=== PATIENT | male | born 1935 | race Caucasian/White ===

== ENCOUNTER 2021-05-14 10:26 | Outpatient (REF) | payer OTHER, SELFPAY ==
--- NOTE | ~2021-05-14 | XR_ITS ---
EXAMINATION: XR KNEE, RIGHT CLINICAL INFORMATION: Sprain COMPARISON: None TECHNIQUE: Three views of the right knee. FINDINGS: There is no evidence acute fracture or dislocation of the right knee. No right knee effusion is appreciated. There is degenerative marginal spurring seen about the undersurface of the patella. There is a 7 mm calcific density which is circumscribed seen overlying the patellofemoral joint and may represent a loose body. No definite donor site is appreciated. There is chondrocalcinosis present. Prominent vascular calcifications are seen. Joint spaces are maintained. XR/XR knee RT 3V IMPRESSION: Patellofemoral degenerative change. Chondrocalcinosis. Question loose body anterior aspect of the knee seen on lateral view overlying the patellofemoral joint.
== END 2021-05-14 10:27 | disposition home or self-care (01) ==
LOC: HO.HMGCX 10:26
PROVIDERS: PCP Internal Medicine; Visit Provider Internal Medicine
DX: Z13.89 Encounter for screening for other disorder (principal)
CPT/HCPCS: 73562

== ENCOUNTER 2024-11-17 12:27 | Outpatient (AMB) | payer OTHER, SELFPAY ==
--- OUTSIDE RECORDS SUMMARY | 2024-11-17 12:51 | XMS_ITS | Encounter Summary ---
Author Organization [facility] Address [address] [place] [address] Care Team Providers Care Liquid Waste Treatment Plant Operator Name Role Phone Sharmila Hanson MD Primary Care Provider [phone] Reason for Visit * Reason Onset Date Comments VNA 11/07/2024 Encounter Details Date Type Department Care Team (Late st Contact Info) Description 11/07/2024 Telephone Adult Medicine [facility] [address] [place] [phone] Sharmila Hanson MD [address], [place] [phone] VNA Social History Tobacco Use Types Packs/Day Years Used Date Smoking Tobacco: Never Smokeless Tobacco: Never Alcohol Use Standard Drinks/Week Comments Not Currently 0 (1 standard drink = 0.6 oz pur e alcohol) Interpersonal Safety Answer Date Record ed Physical Abuse 10/11/2024 Verbal Abuse 10/11/2024 Sex and Gender Information Value Date Recorded Sex Assigned at Male 09/27/2024 6:59 PM EST Legal Sex Male 10:11 AM EST Gender Identity Male 09/27/2024 6:59 PM EST Sexual Orientation Straight 09/27/2024 6: 59 PM EST documented as of this encounter Functional Status * Are you deaf or do you have serious difficulty hearing? Answer Date of Assessment Author No 09/10/2024 12:34 PM Dorene Tobin RN * Are you blind or do you have serious difficulty seeing, even when wearing glasses? Answer Date of Assessment Author No 09/10/2024 12:34 PM EST Dorene Nevarez RN * Do you have serious difficulty walking or climbing stairs? Answer Date of Assessment Author No 09/10/2024 12:34 PM EST Dorene Nevarez RN * Do you have serious difficulty dressing or bathing? Answer Date of Assessment Author No 09/10/2024 12:34 PM Dorene Tobin RN * Because of a physical, mental, or emotional condition, do you have serious difficulty doing errandsalone such as visiting the doctor? Answer Date of Assessment Author No 09/10/2024 12:34 PM Dorene Tobin RN documented as of this encounter Mental Status * Because of a physical, mental, or emotional condition, do you have serious difficulty concentrating, remembering, or making decisions? (5 years old or older) Answer Entry Date Author No 09/10/2024 12:34 PM Dorene Tobin RN documented in this encounter Progress Notes * Heather Lara RN - 11/08/2024 1:38 PM EST Called and spoke to trudi Pugh's daughter. A hospital follow up appointment was made for him to be seen in the office on 11/14/24 at 1:[address] Hanson and she is in agreement with this plan. Faxed request for medical records to [facility] at . * Sharmila Hanson MD - 11/07/2024 4:31 PM EST Ok for VO, needs to be seen for signed orders; please schedule hospital FU; 1 or 1:30 pm on 11/09 is ok * Ian Saini LPN - 11/07/2024 3:16 PM EST Chaitanya STERN requesting VO for nursing PT and OT Please review and advise Please send response to nurse triage marnie Carlos Tj OV 09/26/24 Please book a hospital follow up appointment * Ian Saini LPN - 11/07/2024 3:15 PM EST VNA CALL Which VNA office is calling? Chaitanya STERN, Full name of caller: Cornelia The caller, nurse Is the caller at the patients home?: no Reason for call: starting services for today 11/07/2024. Two times a week for three weeks and then one time a week up to six weeks. Does caller need an urgent call back? no Was CONTACT Telephone # obtained above?: no Fax #: documented in this encounter Plan of Treatment Upcoming Encounters Date Type Department Care Team (Late st Contact Info) Description 01/01/2025 1:00 PM EDT Office Visit Adult Medicine [facility] [address], [place] [phone] Sharmila Hanson MD [address] [place] [address] 02/23/2025 9:00 AM EDT [facility] [address] [phone] 02/23/2025 10:30 AM EDT Office Visit [address] [place] [address] [phone] Irais Agarwal MD [address] [phone] documented as of this encounter Visit Diagnoses Not on filedocumented in this encounter Additional Health Concerns 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
--- OUTSIDE RECORDS SUMMARY | 2024-11-17 12:51 | XMS_ITS | Encounter Summary ---
Author Organization [facility] Address [address] [place] [address] Care Team Providers Care Account Executive Key Accounts Name Role Phone Sharmila Hanson MD Primary Care Provider [phone] Encounter Details Date Type Department Care Team (Late st Contact Info) Description 10/17/2024 Lab Requisition [facility] - Main Lab [address] [place] [address] Roxana Murray MD [address] [phone] Urinary tract infection, site not specified Social History Tobacco Use Types Packs/Day Years [...] 09/10/2024 12:34 PM Dorene Tobin RN * Do you have serious difficulty walking or climbing stairs? Answer Date of Assessment Author No 09/10/2024 12:34 PM Dorene Tobin RN * Do you have serious difficulty [...] Dorene Tobin RN documented in this encounter Plan of Treatment Upcoming Encounters Date Type Department Care Team (Late st Contact Info) Description 01/01/2025 1:00 PM EDT Office Visit Adult Medicine [address] [phone] Sharmila Hanson MD [address] [place] [phone] 02/23/2025 9:00 AM EDT Ancillary Procedure [address] [phone] 02/23/2025 10:30 AM EDT Office Visit [address] [phone] Irais Agarwal MD [address] [phone] documented as of this encounter Procedures Procedure Name Priority Date/Time Associated Diagnosis Comments COMPLETE BLOOD COUNT Routine 10/17/2024 5:27 AM EST Urinary tract infection, site not specified COMPREHENSIVE METABOLIC PANEL Routine 10/17/2024 5:27 AM EST Urinary tract infection, site not specified documented in this encounter Results * (ABNORMAL) Comprehensive metabolic panel (10/17/2024 5:27 AM EST) Sodium 132(L) 133 - 145 mmol/L LAB CHEMISTRY METHOD 10/17/2024 9:09 AM [facility] Potassium 4.1 3.5 - 5.5 mmol/L LAB CHEMISTRY METHOD 10/17/2024 9:09 AM [facility] Chloride 101 96 - 110 mmol/L LAB CHEMISTRY METHOD 10/17/2024 9:09 AM [facility] CO2 23 21 - 32 mmol/L LAB CHEMISTRY METHOD 10/17/2024 9:09 AM [facility] Anion Gap 8 3 - 11 LAB CHEMISTRY METHOD 10/17/2024 9:09 AM [facility] Glucose 104(H) 70 - 100 mg/dL LAB CHEMISTRY METHOD 10/17/2024 9:09 AM [facility] BUN 12 5 - 25 mg/dL LAB CHEMISTRY METHOD 10/17/2024 9:09 AM [facility] Comment:Results verified by repeat testing Creatinine 0.87 0.70 - 1.30 mg/dL LAB CHEMISTRY METHOD 10/17/2024 9:09 AM [facility] eGFR 84 >=60 mL/min/1. 73m2 LAB CHEMISTRY METHOD 10/17/2024 9:09 AM [facility] Comment:Calculation based on the??Chronic Kidney Disease Epidemiology Collaboration (CKD-EPI) equation refit??without adjustment for race. BUN/Creatinine Ratio 13.8 LAB CHEMISTRY METHOD 10/17/2024 9:09 AM [facility] Calcium 9.0 8.5 - 10.5 mg/dL LAB CHEMISTRY METHOD 10/17/2024 9:09 AM [facility] AST (SGOT) 15 10 - 42 unit/L LAB CHEMISTRY METHOD 10/17/2024 9:09 AM [facility] ALT (SGPT) 13 10 - 60 unit/L LAB CHEMISTRY METHOD 10/17/2024 9:09 AM [facility] Alkaline Phosphatase 156(H) 42 - 121 unit/L LAB CHEMISTRY METHOD 10/17/2024 9:09 AM [facility] Total Protein 5.8(L) 6.0 - 8.0 g/dL LAB CHEMISTRY METHOD 10/17/2024 9:09 AM [facility] Albumin 2.7(L) 3.2 - 5.0 g/dL LAB CHEMISTRY METHOD 10/17/2024 9:09 AM [facility] Total Bilirubin 0.4 0.0 - 1.4 mg/dL LAB CHEMISTRY METHOD 10/17/2024 9:09 AM [facility] Blood Venous blood specimen / Unknown Venipuncture / Unknown 10/17/2024 5:27 AM EST 10/17/2024 8:08 AM EST us Roxana Murray MD LAB BLOOD ORDERABLES Fin al Result [facility] [address] [place] [address], * (ABNORMAL) Complete blood count (10/17/2024 5:27 AM EST) WBC 7.5 4.8 - 10.8 K/mcL LAB HEMETOLOGY METHOD 10/17/2024 8:36 AM [facility] RBC 2.40(L) 4.50 - 5.50 M/mcL LAB HEMETOLOGY METHOD 10/17/2024 8:36 AM [facility] Hemoglobin 7.5(L) 13.5 - 17.5 g/dL LAB HEMETOLOGY METHOD 10/17/2024 8:36 AM [facility] Hematocrit 22.9(L) 42.0 - 54.0 % LAB HEMETOLOGY METHOD 10/17/2024 8:36 AM [facility] MCV 95.4 79.0 - 98.0 FL LAB HEMETOLOGY METHOD 10/17/2024 8:36 AM [facility] MCH 31.3 27.0 - 32.0 pcg LAB HEMETOLOGY METHOD 10/17/2024 8:36 AM [facility] MCHC 32.8 32.0 - 37.0 g/dL LAB HEMETOLOGY METHOD 10/17/2024 8:36 AM [facility] RDW 15.3(H) 11.0 - 15.0 % LAB HEMETOLOGY METHOD 10/17/2024 8:36 AM [facility] Platelets 337 130 - 400 K/mcL LAB HEMETOLOGY METHOD 10/17/2024 8:36 AM [facility] MPV 8.6 7.0 - 11.0 FL LAB HEMETOLOGY METHOD 10/17/2024 8:36 AM [facility] NRBC 0.0 <1.0 % LAB HEMETOLOGY METHOD 10/17/2024 8:36 AM [facility] NRBC Absolute 0.00 <0.10 K/mcL LAB HEMETOLOGY METHOD 10/17/2024 8:36 AM [facility] Blood Venous blood specimen / Unknown Venipuncture / Unknown 10/17/2024 5:27 AM EST 10/17/2024 8:08 AM EST Roxana Murray MD LAB BLOOD ORDERABLES Fin al Result [facility] [address] [place] [address], documented in this encounter Visit Diagnoses Diagnosis Urinary tract infection, site not specified documented in this encounter 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
--- OUTSIDE RECORDS SUMMARY | 2024-11-17 12:51 | XMS_ITS | Data Portability ---
Author Organization [facility] [employer], [facility] Address [address] [place] [address] [place] [address] Care Team Providers Care Shove Up Name Role Phone BELEM ONEILL Referring Provider Unavailable BELEM ONEILL Primary Care Provider Assessment Encounter Date Assessment Date Assessment LastModified by Organization Details LastModified Time 02/10/2022 02/10/2022 IMPRESSION: Epilepsy; gait disorder He remains seizure-free on a standard dose of Lamictal 200 mg twice a day. The FDA has put out a new warning in July 2021, based on in vitro data, that states in part that clinicians should avoid the use of Lamictal in people who have cardiac conduction disorders (e.g., second- or third-degree heart block), ventricular arrhythmias, or cardiac disease or abnormality(e.g., myocardial ischemia, heart failure, structural heart disease, Brugada syndrome or other sodium channelopathies). Concomitant use of other sodium channel blockers may increase the risk of proarrhythmia. https://www.ilae. org/files/ilaeGui deline/ILAE_AES_L amotrigine_adviso ry_final_EO_CLEAN _[email or web address] .pdf He has no known heart disease, and just a slight murmur per February 10, 2022 patient report, so this is not an issue for this patient. I again encouraged him to increase frequency of home exercises for balance learned from physical therapy. 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 Previous discussions: He remains, since May 2015, completely off Dilantin. To review the pathway of evaluation leading to this plan: Dilantin may cause polyneuropathy and abnormal gait after long use. He has imbalance with tandem gait, but no sensory signs on light touch or vibrational testing. 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 Dilantin also has other side effects on mental status as the patient ages. In general, I think that cross titration to a medication with less long-term side effects would be in his benefit. We discussed this and he agreed. We will start Lamictal. If he tolerates this, we will then taper Dilantin. He is now in good shape with home exercises to keep his balance is good as it can be and with an attitude that he needs his cane. I encouraged him in this direction. 2019: GABBY Earle Rodrigues February 10, 2022 CONTINUE lamotrigine 200 mg every 12 hours. CONTINUE home exercises for balance learned from physical therapy. CONTINUE: To use your walker outside and your cane inside. Please use the cane at all times when you are inside, unless you use the walker. Please keep one or the other by your bedside so you can use it if/when you wake up to go to the bathroom. This is because of the data that says that falls are at their highest risk at waking in the middle of the night and walking. CONTINUE home exercises for balance learned from physical therapy. You may have a half a glass of wine on special occasions. As you do not generally drink any alcohol, more than this may be a risk for you, either to make you tipsy and more likely to fall, or possibly to trigger a seizure. You have been a little forgetful of our discussions on important topics such as having a cane or walker at your bedside. You are not noticing any forgetfulness or problems with taking medications. If you should notice a problem with taking your medications or if your notices such a problem, please contact me or primary care so we can address this. Followup in 10 months, or sooner with suspicion for seizure, worse problems walking or other neurologic concerns. Benedicto Branch MD, PhD [facility] mrossen Not available 02/10/2022 14:52:08 01/04/2023 01/04/2023 IMPRESSION: --Epilepsy; gait disorder --Newly appreciated right-sided carpal tunnel syndrome explaining tingling intermittently in right-sided fingers, With Tinel maneuver reproducing this tingling. He remains seizure-free on a standard dose of Lamictal 200 mg twice a day.We will make no changes with respect to the gait disorder. Right-sided carpal tunnel syndrome is diagnosed on the basis of the thumb weakness and the Tinel's sign. I offer prescription for hand splint. The symptoms do not bother him enough to move in that direction. 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 This is asymptomatic on the left. He has diabetes and this might be the trigger for this situation. Hypothyroidism may also predispose to focal neuropathy. I defer to primary care for correcting thyroid function at the next opportunity for sending labs. For his imbalance I have previously encouraged him to increase frequency of home exercises for balance learned from physical therapy. 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 This was done as of February 10, 2022 follow-up report. PLAN Earle Rodirgues January 042022 CONTINUE lamotrigine 200 mg every 12 hours. CONTINUE home exercises for balance learned from physical therapy. CONTINUE: To use your walker outside and your cane inside. Please use the cane at all times when you are inside, unless you use the walker. Please keep one or the other by your bedside so you can use it if/when you wake up to go to the bathroom. This is because of the data that says that falls are at their highest risk at waking in the middle of the night and walking. CONTINUE home exercises for balance learned from physical therapy. You may have a half a glass of wine on special occasions. As you do not generally drink any alcohol, more than this may be a risk for you, either to make you tipsy and more likely to fall, or possibly to trigger a seizure. You have been a little forgetful of our discussions on important topics such as having a cane or walker at your bedside. You are not noticing any forgetfulness or problems with taking medications. If you should notice a problem with taking your medications or if your notices such a problem, please contact me or primary care so we can address this. Followup in 10 months, or sooner with suspicion for seizure, worse problems walking or other neurologic concerns. Benedicto Branch MD, PhD [facility] Not available 01/04/2023 16:00:17 07/19/2023 07/19/2023 IMPRESSION: --Epilepsy; gait disorder --January 04, 2023 Newly appreciated right-sided carpal tunnel syndrome explaining tingling intermittently in right-sided fingers, With Tinel maneuver reproducing this tingling. --July 192022 No seizures on lamotrigine, without side effects; new atrial fibrillation on Eliquis, with two recent falls. He remains seizure-free on a standard dose of Lamictal 200 mg twice a day.Neuro make no changes With respect to the gait disorder, I encouraged him to work with the PT and OT healthcare providers coming to his home to minimize any chance of future falls. He repeatedly returns to his feeling of anxiety and needing to do things right away and I wonder if he has a little compulsiveness. He thinks may be so. I offered a very small dose of a mild SSRI, escitalopram. He declines and thinks he can be mindful and slow down by himself. January 04, 2023 Right-sided carpal tunnel syndrome is diagnosed on the basis of the thumb weakness and the Tinel's sign. I offer prescription for hand splint. The symptoms do not bother him enough to move in that direction. 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 This is asymptomatic on the left. He has diabetes and this might be the trigger for this situation. Hypothyroidism may also predispose to focal neuropathy. I defer to primary care for correcting thyroid function at the next opportunity for sending labs. For his imbalance I have previously encouraged him to increase frequency of home exercises for balance learned from physical therapy. 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 This was done as of February 10, 2022 follow-up report. PLAN Earle Rodrigues July 192022 CONTINUE lamotrigine 200 mg every 12 hours. work with PT AND OT on balance Plan see if OT has any suggestions about changing the situation around your bathtub to minimize the chance of fall there. CONTINUE: To use your walker outside and your cane inside. Please use the cane at all times when you are inside, unless you use the walker. Please keep one or the other by your bedside so you can use it if/when you wake up to go to the bathroom. This is because of the data that says that falls are at their highest risk at waking in the middle of the night and walking. You may have a half a glass of wine on special occasions. As you do not generally drink any alcohol, more than this may be a risk for you, either to make you tipsy and more likely to fall, or possibly to trigger a seizure. You have been a little forgetful of our discussions on important topics such as having a cane or walker at your bedside. You are not noticing any forgetfulness or problems with taking medications. If you should notice a problem with taking your medications or if your notices such a problem, please contact me or primary care so we can address this. Followup in 6 months, or sooner with suspicion for seizure, worse problems walking or other neurologic concerns. Benedicto Branch MD, PhD [facility] Not available 07/19/2023 14:45:40 01/18/2024 01/18/2024 IMPRESSION: --Epilepsy; gait disorder --January 04, 2023 Newly appreciated right-sided carpal tunnel syndrome explaining tingling intermittently in right-sided fingers, With Tinel maneuver reproducing this tingling. --July 192022 No seizures on lamotrigine, without side effects; new atrial fibrillation on Eliquis, with two recent falls. He remains seizure-free on a standard dose of Lamictal 200 mg twice a day. Again, I will make no changes With respect to the gait disorder, I again encouraged him to work with the PT and OT healthcare providers coming to his home to minimize any chance of future falls. July 19, 2024 He repeatedly returns to his feeling of anxiety and needing to do things right away and I wonder if he has a little compulsiveness. He thinks may be so. I offered a very small dose of a mild SSRI, escitalopram. He declines and thinks he can be mindful and slow down by himself. January 04, 2023 Right-sided carpal tunnel syndrome is diagnosed on the basis of the thumb weakness and the Tinel's sign. I offer prescription for hand splint. The symptoms do not bother him enough to move in that direction. 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 This is asymptomatic on the left. He has diabetes and this might be the trigger for this situation. Hypothyroidism may also predispose to focal neuropathy. I defer to primary care for correcting thyroid function at the next opportunity for sending labs. For his imbalance I have previously encouraged him to increase frequency of home exercises for balance learned from physical therapy. 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 This was done as of February 10, 2022 follow-up report. PLAN Earle Rodrigues 2023 CONTINUE lamotrigine 200 mg every 12 hours. work with PT AND OT on balance Plan see if OT has any suggestions about changing the situation around your bathtub to minimize the chance of fall there. CONTINUE: To use your walker outside and your cane inside. Please use the cane at all times when you are inside, unless you use the walker. Please keep one or the other by your bedside so you can use it if/when you wake up to go to the bathroom. This is because of the data that says that falls are at their highest risk at waking in the middle of the night and walking. You may have a half a glass of wine on special occasions. As you do not generally drink any alcohol, more than this may be a risk for you, either to make you tipsy and more likely to fall, or possibly to trigger a seizure. You have been a little forgetful of our discussions on important topics such as having a cane or walker at your bedside. You are not noticing any forgetfulness or problems with taking medications. If you should notice a problem with taking your medications or if your notices such a problem, please contact me or primary care so we can address this. Followup in 6 months, or sooner with suspicion for seizure, worse problems walking or other neurologic concerns. Benedicto Branch MD, PhD [facility] Not available 01/18/2024 12:41:25 07/20/2024 07/20/2024 IMPRESSION: --Epilepsy; gait disorder --January 04, 2023 Newly appreciated right-sided carpal tunnel syndrome explaining tingling intermittently in right-sided fingers, With Tinel maneuver reproducing this tingling. --July 192022 No seizures on lamotrigine, without side effects; new atrial fibrillation on Eliquis, with two recent falls. --January 18, 2024 seizure-free on lamotrigine, one fall, without walker or cane --July 20, 2024 seizure-free on lamotrigine; intermittent falls, intermittent hospital admissions for fall and/or UTI. >>>>>>>>>>>>January 18, 2024 He remains seizure-free on a standard dose of Lamictal 200 mg twice a day. Again, I will make no changes. With respect to the gait disorder, I again encouraged him to work with the PT and OT healthcare providers to minimize any chance of future falls. >>>>>>>>>>>>January 18, 2024 He remains seizure-free on a standard dose of Lamictal 200 mg twice a day. Again, I will make no changes. With respect to the gait disorder, I again encouraged him to work with the PT and OT healthcare providers to minimize any chance of future falls. July 19, 2023 He repeatedly returns to his feeling of anxiety and needing to do things right away and I wonder if he has a little compulsiveness. He thinks may be so. I offered a very small dose of a mild SSRI, escitalopram. He declines and thinks he can be mindful and slow down by himself. January 04, 2023 Right-sided carpal tunnel syndrome is diagnosed on the basis of the thumb weakness and the Tinel's sign. I offer prescription for hand splint. The symptoms do not bother him enough to move in that direction. 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 This is asymptomatic on the left. He has diabetes and this might be the trigger for this situation. Hypothyroidism may also predispose to focal neuropathy. I defer to primary care for correcting thyroid function at the next opportunity for sending labs. For his imbalance I have previously encouraged him to increase frequency of home exercises for balance learned from physical therapy. 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 This was done as of February 10, 2022 follow-up report. PLAN Earle Rodrigues July 20, 2024 CONTINUE lamotrigine 200 mg every 12 hours. work with PT AND OT on balance Plan see if OT has any suggestions about changing the situation around your bathtub to minimize the chance of fall there. CONTINUE: To use your walker outside and your cane inside. Please use the cane at all times when you are inside, unless you use the walker. Please keep one or the other by your bedside so you can use it if/when you wake up to go to the bathroom. This is because of the data that says that falls are at their highest risk at waking in the middle of the night and walking. You may have a half a glass of wine on special occasions. As you do not generally drink any alcohol, more than this may be a risk for you, either to make you tipsy and more likely to fall, or possibly to trigger a seizure. You have been a little forgetful of our discussions on important topics such as having a cane or walker at your bedside. You are not noticing any forgetfulness or problems with taking medications. If you should notice a problem with taking your medications or if your notices such a problem, please contact me or primary care so we can address this. Followup in 6 months, or sooner with suspicion for seizure, worse problems walking or other neurologic concerns. PLEASE BRING YOUR Benedicto Branch MD, PhD [facility] Not available 07/20/2024 13:11:43 Plan of Treatment Reminders Order Date Submit Date Provider Last Modified By Organization Details Last Modified Time Details Appointments FOLLOW UP EXT 2024 12:30P Tani Branch MD PhD Not available Not available Not available Lab None recorded. Referral None recorded. Procedures None recorded. Surgeries None recorded. Imaging None recorded. Medication Orders lamotrigi ne [address] [facility], [address] [place] [address], [id number], 07/20/2024 12:52:04 lamotrigi ne 200 [address] [facility], [address] [place] [address], [id number], 01/18/2024 12:29:27 lamotrigi ne 200 mg tablet [address] [facility], [address] [place] [address], [id number], 07/19/2023 14:26:12 lamotrigi ne 200 mg tablet 2022 023 [facility], [address] [place] [address], [id number], 01/04/2023 14:48:51 lamotrigi ne 200 mg tablet 2021 022 [facility], [address] [place] [address], [id number], 02/10/2022 14:53:40 Patient TargetsNo targets recorded. Patient Instructions Encounter Date Encounter Id Patient Instructions Last Modified By Organization Details Last Modified Time 02/10/2022 [id number] PREVIOUS DISCUSSIONS January 2020: He wonders whether glaucoma affects his walking. He is still able to see the visual big picture in his peripheral vision so I doubt it. He wonders if/when he will be able to stop using walker and cane. That would depend on my neurological exam. I suspect he will always need at least a cane. I I recommend he use both of them, just as he is doing, I told him, in the foreseeable future, at least until I can do exam and he can be reevaluated by a physical therapist. He understands. 2018 He had some questions on the differences between lamotrigine and Dilantin and we discussed this. 2014 He no longer minds the taste of the Lamictal pills, since May 2015 so he is not using applesauce. 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 (not doing it anymore 02/2022) mrossen Not available 02/10/2022 14:36:29 01/04/2023 [id number] mrossen Not available 01/04/2023 16:00:49 PREVIOUS MEDICATION He remains, since May 2015, completely off Dilantin. To review the pathway of evaluation leading to this plan: Dilantin may cause polyneuropathy and abnormal gait after long use. He has imbalance with tandem gait, but no sensory signs on light touch or vibrational testing. 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 Dilantin also has other side effects on mental status as the patient ages. In general, I think that cross titration to a medication with less long-term side effects would be in his benefit. We discussed this and he agreed. We will start Lamictal. If he tolerates this, we will then taper Dilantin. PREVIOUS DISCUSSIONS 02/10/2022 The FDA has put out a new warning in July 2021, based on in vitro data, that states in part that clinicians should avoid the use of Lamictal in people who have cardiac conduction disorders (e.g., second- or third-degree heart block), ventricular arrhythmias, or cardiac disease or abnormality(e.g., myocardial ischemia, heart failure, structural heart disease, Brugada syndrome or other sodium channelopathies). Concomitant use of other sodium channel blockers may increase the risk of proarrhythmia. https://www.ilae.o rg/files/ilaeGuide line/ILAE_AES_Lamo trigine_advisory_f inal_EO_CLEAN_ASG2 -[email or web address].pdf He has no known heart disease, and just a slight murmur per February 10, 2022 patient report, so this is not an issue for this patient. January 2020: He wonders whether glaucoma affects his walking. He is still able to see the visual big picture in his peripheral vision so I doubt it. He wonders if/when he will be able to stop using walker and cane. That would depend on my neurological exam. I suspect he will always need at least a cane. I I recommend he use both of them, just as he is doing, I told him, in the foreseeable future, at least until I can do exam and he can be reevaluated by a physical therapist. He understands. 2018 He had some questions on the differences between lamotrigine and Dilantin and we discussed this. 2014 He no longer minds the taste of the Lamictal pills, since May 2015 so he is not using applesauce. 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 (not doing it anymore 02/2022) Three chronic conditions, with exacerbation [email or web address] Not available 01/04/2023 16:01:10 07/19/2023 [id number] mrossen Not available 07/19/2023 14:13:03 PREVIOUS MEDICATION He remains, since May 2015, completely off Dilantin. To review the pathway of evaluation leading to this plan: Dilantin may cause polyneuropathy and abnormal gait after long use. He has imbalance with tandem gait, but no sensory signs on light touch or vibrational testing. 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 Dilantin also has other side effects on mental status as the patient ages. In general, I think that cross titration to a medication with less long-term side effects would be in his benefit. We discussed this and he agreed. We will start Lamictal. If he tolerates this, we will then taper Dilantin. PREVIOUS DISCUSSIONS 02/10/2022 The FDA has put out a new warning in July 2021, based on in vitro data, that states in part that clinicians should avoid the use of Lamictal in people who have cardiac conduction disorders (e.g., second- or third-degree heart block), ventricular arrhythmias, or cardiac disease or abnormality(e.g., myocardial ischemia, heart failure, structural heart disease, Brugada syndrome or other sodium channelopathies). Concomitant use of other sodium channel blockers may increase the risk of proarrhythmia. https://www.ilae.o rg/files/ilaeGuide line/ILAE_AES_Lamo trigine_advisory_f inal_EO_CLEAN_ASG2 -[email or web address].pdf He has no known heart disease, and just a slight murmur per February 10, 2022 patient report, so this is not an issue for this patient. January 2020: He wonders whether glaucoma affects his walking. He is still able to see the visual big picture in his peripheral vision so I doubt it. He wonders if/when he will be able to stop using walker and cane. That would depend on my neurological exam. I suspect he will always need at least a cane. I I recommend he use both of them, just as he is doing, I told him, in the foreseeable future, at least until I can do exam and he can be reevaluated by a physical therapist. He understands. 2018 He had some questions on the differences between lamotrigine and Dilantin and we discussed this. 2014 He no longer minds the taste of the Lamictal pills, since May 2015 so he is not using applesauce. 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 (not doing it anymore 02/2022) Discussion across issues of diagnoses and management and same day associated chart review and management greater than 50% greater than 40 minutes [email or web address] Not available 07/19/2023 14:46:05 01/18/2024 [id number] mrossen Not available 01/18/2024 12:23:05 PREVIOUS MEDICATION He remains, since May 2015, completely off Dilantin. To review the pathway of evaluation leading to this plan: Dilantin may cause polyneuropathy and abnormal gait after long use. He has imbalance with tandem gait, but no sensory signs on light touch or vibrational testing. 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 Dilantin also has other side effects on mental status as the patient ages. In general, I think that cross titration to a medication with less long-term side effects would be in his benefit. We discussed this and he agreed. We will start Lamictal. If he tolerates this, we will then taper Dilantin. PREVIOUS DISCUSSIONS 02/10/2022 The FDA has put out a new warning in July 2021, based on in vitro data, that states in part that clinicians should avoid the use of Lamictal in people who have cardiac conduction disorders (e.g., second- or third-degree heart block), ventricular arrhythmias, or cardiac disease or abnormality(e.g., myocardial ischemia, heart failure, structural heart disease, Brugada syndrome or other sodium channelopathies). Concomitant use of other sodium channel blockers may increase the risk of proarrhythmia. https://www.ilae.o rg/files/ilaeGuide line/ILAE_AES_Lamo trigine_advisory_f inal_EO_CLEAN_ASG2 -[email or web address].pdf He has no known heart disease, and just a slight murmur per February 10, 2022 patient report, so this is not an issue for this patient. January 2020: He wonders whether glaucoma affects his walking. He is still able to see the visual big picture in his peripheral vision so I doubt it. He wonders if/when he will be able to stop using walker and cane. That would depend on my neurological exam. I suspect he will always need at least a cane. I I recommend he use both of them, just as he is doing, I told him, in the foreseeable future, at least until I can do exam and he can be reevaluated by a physical therapist. He understands. 2018 He had some questions on the differences between lamotrigine and Dilantin and we discussed this. 2014 He no longer minds the taste of the Lamictal pills, since May 2015 so he is not using applesauce. 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 (not doing it anymore 02/2022) 2 chronic conditions; prescription medication management Discussion across issues of diagnoses and management and same day associated chart review and management greater than 50% greater than 30 minutes [email or web address] Not available 01/18/2024 12:41:53 07/20/2024 [id number] [email or web address] Not available 07/20/2024 12:48:10 PREVIOUS MEDICATION He remains, since May 2015, completely off Dilantin. To review the pathway of evaluation leading to this plan: Dilantin may cause polyneuropathy and abnormal gait after long use. He has imbalance with tandem gait, but no sensory signs on light touch or vibrational testing. 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 Dilantin also has other side effects on mental status as the patient ages. In general, I think that cross titration to a medication with less long-term side effects would be in his benefit. We discussed this and he agreed. We will start Lamictal. If he tolerates this, we will then taper Dilantin. PREVIOUS DISCUSSIONS 02/10/2022 The FDA has put out a new warning in July 2021, based on in vitro data, that states in part that clinicians should avoid the use of Lamictal in people who have cardiac conduction disorders (e.g., second- or third-degree heart block), ventricular arrhythmias, or cardiac disease or abnormality(e.g., myocardial ischemia, heart failure, structural heart disease, Brugada syndrome or other sodium channelopathies). Concomitant use of other sodium channel blockers may increase the risk of proarrhythmia. https://www.ilae.o rg/files/ilaeGuide line/ILAE_AES_Lamo trigine_advisory_f inal_EO_CLEAN_ASG2 -[email or web address].pdf He has no known heart disease, and just a slight murmur per February 10, 2022 patient report, so this is not an issue for this patient. January 2020: He wonders whether glaucoma affects his walking. He is still able to see the visual big picture in his peripheral vision so I doubt it. He wonders if/when he will be able to stop using walker and cane. That would depend on my neurological exam. I suspect he will always need at least a cane. I I recommend he use both of them, just as he is doing, I told him, in the foreseeable future, at least until I can do exam and he can be reevaluated by a physical therapist. He understands. 2018 He had some questions on the differences between lamotrigine and Dilantin and we discussed this. 2014 He no longer minds the taste of the Lamictal pills, since May 2015 so he is not using applesauce. 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 (not doing it anymore 02/2022) 2 chronic conditions; prescription medication management Discussion across issues of diagnoses and management and same day associated chart review and management greater than 50% greater than 30 minutes [email or web address] Not available 07/20/2024 12:48:10 Reason for Referral None Reported. Procedures Surgical History Date Name Laterality Status Provider Name and Address Organization Details Recorded Time 07/20/2024 DATA REVIEW completed Benedicto Branch MD [address] [place] [address] [place], [phone], Formerly [facility] 07/20/2024 12:48:09 01/18/2024 DATA REVIEW completed Benedicto Branch MD [address] [place] [address] [place], [phone], Formerly [facility] 01/18/2024 12:23:04 07/19/2023 DATA REVIEW completed Benedicto Branch MD [address] [place] [address] [place], [phone], Formerly [facility] 07/19/2023 14:13:03 01/04/2023 DATA REVIEW completed Benedicto Branch MD [address] [place] [address] [place], [phone], Formerly [facility] 01/04/2023 14:44:56 02/10/2022 DATA REVIEW completed Benedicto Branch MD [address] [place] [address] [place], [phone], Formerly [facility] 02/10/2022 14:28:50 Imaging Results None recorded. Procedure Notes None recorded. Medical Equipment None Reported. Medications Name Sig Start Date Stop Date Status Note LastModified by Organization Details LastModified Time freestyle lite test strips strp active Not Available Not Available Not Available freestyle lancets misc active Not Available Not Available Not Available amoxicillin 500 mg capsule TAKE 4 CAPSULES BY MOUTH TAKE 1 HOUR PRIOR TO APPT. active Not Available Not Available No t Available furosemide 40 mg tablet TAKE 1 TABLET BY MOUTH EVERY DAY active Not Available Not Available No t Available silver sulfadiazine 1 % topical cream APPLY ON SHOULDER WOUND DAILY. active Not Available Not Available No t Available lamotrigine 200 mg tablet Take 1 tablet twice a day by oral route for 90 days. active Not Available Not Available No t Available atorvastatin 10 mg tablet active Not Available Not Available Not Available cefpodoxime 200 mg tablet TAKE 1 TABLET BY MOUTH TWICE A DAY active Not Available Not Available No t Available metoprolol succinate ER 50 mg tablet,extend ed release 24 hr TAKE 1 TABLET BY MOUTH EVERY DAY active Not Available Not Available No t Available FreeStyle Lancets 28 gauge active Not Available Not Available Not Available lisinopril 20 mg tablet active Not Available Not Available No t Available prednisone 20 mg tablet TAKE 2 TABLETS BY MOUTH DAILY active Not Available Not Available No t Available alendronate 70 mg tablet active Not Available Not Available Not Available triamcinolone acetonide 0.5 % topical ointment APPLY 1 FILM TOPICALLY 2 TIMES DAILY FOR 14 DAYS. active Not Available Not Available No t Available clopidogrel 75 mg tablet TAKE 1 TABLET BY MOUTH EVERY DAY active Not Available Not Available No t Available ciprofloxacin 500 mg tablet TAKE 1 TABLET BY MOUTH EVERY 12 HOURS active Not Available Not Available No t Available sulfamethoxaz ole 800 mg-trimethopr im 160 mg tablet TAKE 1 TABLET BY MOUTH TWICE A DAY active Not Available Not Available No t Available acetaminophen 500 mg tablet TAKE 1 TABLET BY MOUTH THREE TIMES A DAY active Not Available Not Available No t Available amoxicillin 500 mg tablet TAKE 1 TABLET BY MOUTH THREE TIMES A DAY active Not Available Not Available No t Available ofloxacin 0.3 % ear drops active Not Available Not Available Not Available tamsulosin 0.4 mg capsule active Not Available Not Available Not Available imiquimod 5 % topical cream packet APPLY SPARINGLY MON, WED & FRI NIGHTS X 4 WEEKS active Not Available Not Available No t Available timolol maleate 0.25 % eye drops active Not Available Not Available Not Available cephalexin 500 mg capsule TAKE 1 CAPSULE BY MOUTH FOUR TIMES A DAY FOR 10 DAYS active Not Available Not Available No t Available lisinopril 10 mg tablet active Not Available Not Available No t Available folic acid 1 mg tablet active Not Available Not Available No t Available lisinopril 5 mg tablet active Not Available Not Available No t Available furosemide 20 mg tablet TAKE 1 TABLET BY MOUTH EVERY DAY active Not Available Not Available No t Available metoprolol succinate ER 25 mg tablet,extend ed release 24 hr TAKE 1 TABLET BY MOUTH EVERY DAY active Not Available Not Available No t Available nystatin 100,000 unit/gram topical powder APPLY 2 G TOPICALLY 2 TIMES DAILY. active Not Available Not Available No t Available cefuroxime axetil 500 mg tablet TAKE 1 TABLET BY MOUTH EVERY 12 HOURS active Not Available Not Available No t Available fluticasone propionate 50 mcg/actuation nasal spray,suspens ion TAKE 1 SPRAY DAILY IN EACH NOSTRIL active Not Available Not Available No t Available doxycycline hyclate 100 mg tablet TAKE 1 TABLET BY MOUTH TWICE DAILY active Not Available Not Available No t Available finasteride 5 mg tablet active Not Available Not Available No t Available amoxicillin 875 mg-potassium clavulanate 125 mg tablet TAKE 1 TABLET BY MOUTH TWICE A DAY active Not Available Not Available No t Available nitrofurantoi n monohydrate/m acrocrystals 100 mg capsule TAKE 1 CAPSULE BY MOUTH TWICE A DAY active Not Available Not Available No t Available FreeStyle Lite Strips active Not Available Not Available Not Available lidocaine 5 % topical ointment APPLY TO AFFECTED AREA TWICE A DAY NEEDED FOR SEVERE PAIN (SCALE 7-10) active Not Available Not Available No t Available Eliquis 5 mg tablet TAKE 1 TABLET BY MOUTH TWICE A DAY active Not Available Not Available No t Available Eliquis 2.5 mg tablet active Not Available Not Available No t Available Vitals None Recorded Social History None recorded. Functional Status None recorded. Mental Status None recorded. Family History Nothing Reported. Medical History No medical history recorded. Past Encounters Encounter ID Performer Location Encounter Start Date Encounter Closed Date Diagnosis/Indication Diagnosis SNOMED-CT Code Diagnosis ICD10 Code Diagnosis Note [id number] Benedicto Branch MD [facility] [address] [place] [address] [place] [address] 02/10/2022 13:48:28 02/11/2022 08:42:06 Focal onset impaired awareness epileptic seizure 805229644 G40.209 Unsteady w hen standing [id number] R26.81 [id number] Benedicto Branch MD [address] [place] [address] 01/04/2023 13:50:22 01/04/2023 16:57:23 Focal onset impaired awareness epileptic seizure [id number] G40.209 Unsteady w hen standing [id number] R26.81 [id number] Benedicto Branch MD [facility] [address] [place] [address] [place] [id number] 07/19/2023 13:54:44 07/19/2023 17:09:08 Focal onset impaired awareness epileptic seizure 730946103 G40.209 Unsteady w hen standing [id number] R26.81 [id number] Benedicto Branch MD [facility] [address] [place] [address] [place] [address] 01/18/2024 11:48:19 01/18/2024 12:52:50 Focal onset impaired awareness epileptic seizure [id number] G40.209 Unsteady w hen standing [id number] R26.81 [id number] Benedicto Branch MD [facility] [address] [place] [address] [place] [address] 07/20/2024 12:25:19 07/20/2024 16:21:10 Focal onset impaired awareness epileptic seizure 716241857 G40.209 Unsteady w hen standing [id number] R26.81 Health Concerns Section Related Observation LastModified by Organization Detai ls LastModified Time None Recorded Concern Status LastModified by Organization Details LastModified Time None Recorded Advance Directives Directive None Recorded Payers Encounter Date Sequence Insurance Name Policy Number Policy Garcia Covered Member ID Garcia Member ID Guarantor Name 01/04/2023 1 [facility] (PP[employer] [id number] Earle Rodrigues [id number] Earle Rodrigues 07/19/2023 1 [facility] [employer] [id number] Earle Rodrigues [id number] Earle Rodrigues 01/18/2024 1 [facility] [employer] [place] [id number] Earle Rodrigues [id number] Earle Rodrigues 07/20/2024 1 [facility] [employer] [id number] Earle Rodrigues [id number] Earle Rodrigues Notes Date Note Type Note Provider Name and Address Organization Details Recorded Time 2 text/html Follow up of epilepsy. He is unaccompanied. Since December 30, 2020 neurology follow-up encounter, ~1 year and 1.5 months ago, he has had no seizures. He remains on lamotrigine 200 mg every 12 hours without side effects. He lives with his . He takes his medications by himself. He does not miss any medications or make mistakes with medications. He has had no falls. He now uses a walker at all times outside the house, the cane most of the time inside the house. He does not use it all the time, sometimes there are places where he feels he can walk without the cane. He has forgotten that I asked him to keep a cane or walker by his bedside and I again asked him to do this for when he gets up at night to go to the bathroom. 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 PCP told him he had a slight heart murmur. There are no other new medical conditions. Presenting symptomatology was reviewed from August 06, 2014 initial consultation: He has had epilepsy since he was a young adult. He does not remember any specific diagnosis as to why he has epilepsy. His last seizure was in 2006. He was in a movie theater with his and 2 daughters when he had a staring spell. He had no warning before this started, and he does not remember the event. He does not know how long it lasted. Dilantin is the only medication he has ever been on for seizures. Dilantin was increased after his staring spell. He has no side effects with Dilantin. Primary care recently found a high Dilantin level. Dilantin was adjusted downward a little. He was told to followup with neurology for further assessment.Meanwhile, I will get physical therapy for balance and gait training, and blood work including B12 studies as an alternate causes of his wobbly gait. He is in danger of falling. Diabetes may also cause wobbly gait--I defer to primary care for continued monitoring for diabetes. Benedicto Branch MD [address] [place] [address], [phone], Formerly [facility] 02/10/2022 14:54:04 3 text/html Follow up of epilepsy. He is unaccompanied. Since February 10, 2022 neurology follow-up encounter, 10 months ago, 10 months ago, he again has had no seizures. He remains on lamotrigine 200 mg every 12 hours without side effects. He continues to live with his . He takes care of his medications by himself without mistakes. He has had no falls. He continues to use a walker all the time outside the house and a cane which he now uses all the time inside the house. He now has the cane at bedside so he can use it should he wake at night.He reports no changes in medication from other providers and no new medical conditions.However, he has an ongoing intermittent condition he wishes to run by me: Every so often his right sided fingers tingle. This does not wake him. It does not bother him but he wishes to know what this is. Presenting symptomatology was reviewed from August 06, 2014 initial consultation: He has had epilepsy since he was a young adult. He does not remember any specific diagnosis as to why he has epilepsy. His last seizure was in 2006. He was in a movie theater with his and 2 daughters when he had a staring spell. He had no warning before this started, and he does not remember the event. He does not know how long it lasted. Dilantin is the only medication he has ever been on for seizures. Dilantin was increased after his staring spell. He has no side effects with Dilantin. Primary care recently found a high Dilantin level. Dilantin was adjusted downward a little. He was told to followup with neurology for further assessment.Meanwhile, I will get physical therapy for balance and gait training, and blood work including B12 studies as an alternate causes of his wobbly gait. He is in danger of falling. Diabetes may also cause wobbly gait--I defer to primary care for continued monitoring for diabetes. Benedicto Branch MD [address] [place] [address] [place], [phone], [facility] 01/04/2023 16:01:23 3 text/html Follow up of epilepsy. He is unaccompanied. >>>>>>>>>>>July 19. 2022Since January 04, 2023 neurology follow-up encounter, we again has had no seizures. He remains on lamotrigine 200 mg every 12 hours without side effects. He continues to live with his . He takes care of his own medications without mistakes. He feels no problems with memory. His does not say that he has problems with memory so that she is concerned about his medications.Has recent diagnosis of atrial fibrillation in the context of a hospitalization. He is newly on Eliquis. He is having home PT and OT. He is also newly on a water pill (Furosemide per chart).He continues to have his cane at his bedside and he has had no falls with using his walker or his cane. However he has had two falls without the walker or cane. One was maneuvering around his bathtub. Another was when he quickly reached for something. He has a lifelong tendency to be impatient and wants something immediately and so he reaches by reflex. We discussed how he might practice being mindful in such situations. With respect to the floor around the tub, I asked him to bring this up with OT. >>>>>>>>>>>January 04, 2023Since February 10, 2022 neurology follow-up encounter, 10 months ago, 10 months ago, he again has had no seizures. He remains on lamotrigine 200 mg every 12 hours without side effects. He continues to live with his . He takes care of his medications by himself without mistakes. He has had no falls. He continues to use a walker all the time outside the house and a cane which he now uses all the time inside the house. He now has the cane at bedside so he can use it should he wake at night.He reports no changes in medication from other providers and no new medical conditions.However, he has an ongoing intermittent condition he wishes to run by me: Every so often his right sided fingers tingle. This does not wake him. It does not bother him but he wishes to know what this is. >>>>>>>>>>>August 06, 2014 initial consultationPresenting symptomatology was reviewed from August 06, 2014 initial consultation: He has had epilepsy since he was a young adult. He does not remember any specific diagnosis as to why he has epilepsy. His last seizure was in 2006. He was in a movie theater with his and 2 daughters when he had a staring spell. He had no warning before this started, and he does not remember the event. He does not know how long it lasted. Dilantin is the only medication he has ever been on for seizures. Dilantin was increased after his staring spell. He has no side effects with Dilantin. Primary care recently found a high Dilantin level. Dilantin was adjusted downward a little. He was told to followup with neurology for further assessment.Meanwhile, I will get physical therapy for balance and gait training, and blood work including B12 studies as an alternate causes of his wobbly gait. He is in danger of falling. Diabetes may also cause wobbly gait--I defer to primary care for continued monitoring for diabetes. Benedicto Branch MD [address] [place] [address], [phone], [facility] 07/19/2023 14:46:16 4 text/html Follow up of epilepsy. He is unaccompanied. >>>>>>>>>>> 2023Since July 19, 2024 neurology follow-up encounter, he again has had no seizures. He remains on lamotrigine 200 mg every 12 hours without side effects. He continues to live with his . He takes care of his own medications without mistakes. He feels no problems with memory.He has had one fall, without walker or cane, turning away from the kitchen counter too quickly. He did not hit his head. His yelled at him to take his time and be careful. We discussed that it is hard to be perfect. But taking his time and turning with awareness of his imbalance is optimal, as is always holding onto a sturdy piece of furniture if not walker or cane. 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 He is still on Eliquis but he hopes to be able to get off of it. I told him many people have had success with this relatively new procedure.We has had no new or changing medications with other providers. >>>>>>>>>>>July 19. 2022Since January 04, 2023 neurology follow-up encounter, we again has had no seizures. He remains on lamotrigine 200 mg every 12 hours without side effects. He continues to live with his . He takes care of his own medications without mistakes. He feels no problems with memory. His does not say that he has problems with memory so that she is concerned about his medications.Has recent diagnosis of atrial fibrillation in the context of a hospitalization. He is newly on Eliquis. He is having home PT and OT. He is also newly on a water pill (Furosemide per chart).He continues to have his cane at his bedside and he has had no falls with using his walker or his cane. However he has had two falls without the walker or cane. One was maneuvering around his bathtub. Another was when he quickly reached for something. He has a lifelong tendency to be impatient and wants something immediately and so he reaches by reflex. We discussed how he might practice being mindful in such situations. With respect to the floor around the tub, I asked him to bring this up with OT. >>>>>>>>>>>January 04, 2023Since February 10, 2022 neurology follow-up encounter, 10 months ago, 10 months ago, he again has had no seizures. He remains on lamotrigine 200 mg every 12 hours without side effects. He continues to live with his . He takes care of his medications by himself without mistakes. He has had no falls. He continues to use a walker all the time outside the house and a cane which he now uses all the time inside the house. He now has the cane at bedside so he can use it should he wake at night.He reports no changes in medication from other providers and no new medical conditions.However, he has an ongoing intermittent condition he wishes to run by me: Every so often his right sided fingers tingle. This does not wake him. It does not bother him but he wishes to know what this is. >>>>>>>>>>>August 06, 2014 initial consultationPresenting symptomatology was reviewed from August 06, 2014 initial consultation: He has had epilepsy since he was a young adult. He does not remember any specific diagnosis as to why he has epilepsy. His last seizure was in 2006. He was in a movie theater with his and 2 daughters when he had a staring spell. He had no warning before this started, and he does not remember the event. He does not know how long it lasted. Dilantin is the only medication he has ever been on for seizures. Dilantin was increased after his staring spell. He has no side effects with Dilantin. Primary care recently found a high Dilantin level. Dilantin was adjusted downward a little. He was told to followup with neurology for further assessment.Meanwhile, I will get physical therapy for balance and gait training, and blood work including B12 studies as an alternate causes of his wobbly gait. He is in danger of falling. Diabetes may also cause wobbly gait--I defer to primary care for continued monitoring for diabetes. Benedicto Branch MD [address] [place] [address] [place], [phone], Formerly [facility] 01/18/2024 12:42:07 4 text/html Follow up of epilepsy.? He is initially unaccompanied. Toward the end of the encounter, I also talk with his , who did not comment as she asked him if she should and he said he was unsure. Both agreed that she will come in from the beginning for future appointments. >>>>>>>>>>>>July 20, 2024Since 2023 Neurology follow-up encounter, he is doing not so well. He has not had any seizures.. He continues on lamotrigine 200 mg twice a day that I prescribed for seizure prevention without any side effects.His not so well situation is not related to seizure and he is not sure it is related to anything neurological. The reason for not feeling so well is that he is unable to arise intermittently. For instance, he might have trouble arising from the exam room chair. (He did so, holding onto the walker in front of him, with minimal difficulty at the end of the encounter.)He has had hospital admissions. The only one that he remembers is a recent one when he fell in the bathtub and could not get back up. They did lots of tests and found nothing. They ordered physical therapy which is in progress.He brings a medication list. He states that the only change in the medication list from previously is Mucinex which she is on for upper respiratory congestion. The discharge medication list is dated May 27, 2024. It does not contain Mucinex. He says that is an old hospital discharge medication list and he has had hospital admissions since.His adds that he has had lots of hospital admissions, about two a month send about October 2023. These have involved, at various times, UTI and/or falls. >>>>>>>>>>> 2023Since July 19, 2024 neurology follow-up encounter, he again has had no seizures. He remains on lamotrigine 200 mg every 12 hours without side effects. He continues to live with his . He takes care of his own medications without mistakes. He feels no problems with memory.He has had one fall, without walker or cane, turning away from the kitchen counter too quickly. He did not hit his head. His yelled at him to take his time and be careful. We discussed that it is hard to be perfect. But taking his time and turning with awareness of his imbalance is optimal, as is always holding onto a sturdy piece of furniture if not walker or cane. 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 He is still on Eliquis but he hopes to be able to get off of it. I told him many people have had success with this relatively new procedure.We has had no new or changing medications with other providers. >>>>>>>>>>>July 192022Since January 04, 2023 neurology follow-up encounter, we again has had no seizures. He remains on lamotrigine 200 mg every 12 hours without side effects. He continues to live with his . He takes care of his own medications without mistakes. He feels no problems with memory. His does not say that he has problems with memory so that she is concerned about his medications.Has recent diagnosis of atrial fibrillation in the context of a hospitalization. He is newly on Eliquis. He is having home PT and OT. He is also newly on a water pill (Furosemide per chart).He continues to have his cane at his bedside and he has had no falls with using his walker or his cane. However he has had two falls without the walker or cane. One was maneuvering around his bathtub. Another was when he quickly reached for something. He has a lifelong tendency to be impatient and wants something immediately and so he reaches by reflex. We discussed how he might practice being mindful in such situations. With respect to the floor around the tub, I asked him to bring this up with OT. >>>>>>>>>>>January 04, 2023Since February 10, 2022 neurology follow-up encounter, 10 months ago, 10 months ago, he again has had no seizures. He remains on lamotrigine 200 mg every 12 hours without side effects. He continues to live with his . He takes care of his medications by himself without mistakes. He has had no falls. He continues to use a walker all the time outside the house and a cane which he now uses all the time inside the house. He now has the cane at bedside so he can use it should he wake at night.He reports no changes in medication from other providers and no new medical conditions.However, he has an ongoing intermittent condition he wishes to run by me: Every so often his right sided fingers tingle. This does not wake him. It does not bother him but he wishes to know what this is. >>>>>>>>>>>August 06, 2014 initial consultationPresenting symptomatology was reviewed from August 06, 2014 initial consultation: He has had epilepsy since he was a young adult. He does not remember any specific diagnosis as to why he has epilepsy. His last seizure was in 2006. He was in a movie theater with his and 2 daughters when he had a staring spell. He had no warning before this started, and he does not remember the event. He does not know how long it lasted. Dilantin is the only medication he has ever been on for seizures. Dilantin was increased after his staring spell. He has no side effects with Dilantin. Primary care recently found a high Dilantin level. Dilantin was adjusted downward a little. He was told to followup with neurology for further assessment.Meanwhile, I will get physical therapy for balance and gait training, and blood work including B12 studies as an alternate causes of his wobbly gait. He is in danger of falling. Diabetes may also cause wobbly gait--I defer to primary care for continued monitoring for diabetes. Benedicto Branch MD [address] [place] [address] [place], [phone], Formerly [facility] 07/20/2024 13:11:57
--- OUTSIDE RECORDS SUMMARY | 2024-11-17 12:51 | XMS_ITS | Clinical Summary ---
Author Organization [facility] Address [address] [place] [address] Care Team Providers Care Well Surveying Engineer Name Role Phone Sharmila Hanson MD Primary Care Provider [phone] Allergies Active Allergy Reactions Criticality Noted Date Comments Erythromycin 01/24/2018 Medications Medication Sig Dispensed Refills Start Date End Date Status tadalafil (CIALIS) 10 MG tablet Take 10 mg by mouth daily as needed for erectile dysfunction. 0 Active cholecalciferol (VITAMIN D3) 1000 units tablet Take 1,000 Units by mouth daily. 0 Active albuterol (PROVENTIL) (2.5 MG/3ML) 0.083% nebulizer solution Take 2.5 mg by nebulization every 6 (six) hours as needed for wheezing. 0 Active acetaminophen (TYLENOL) 325 MG tablet TAKE 2 TABLETS (650MG) BY MOUTH EVERY 6 HOURS NEEDED MODERATE PAIN 0 11/30/2017 Active aspirin 81 MG tablet Take 81 mg by mouth. 0 Acti ve atorvastatin (LIPITOR) tablet 10 mg 0 12/16/2017 Active azithromycin (ZITHROMAX) 250 MG tablet TAKE 2 TABLETS BY MOUTH TODAY, THEN TAKE 1 TABLET DAILY FOR 4 DAYS 0 01/15/2018 Active COMBIGAN 0.2-0.5 % ophthalmic solution 1 DROP IN RIGHT EYE TWICE A DAY 5 10/29/2017 Active finasteride (PROSCAR) 5 MG tablet 0 12/08/2017 Active folic acid (FOLVITE) tablet 1 mg 0 01/18/2018 Active lamoTRIgine (LAMICTAL) 100 MG tablet 0 01/18/2018 Active Active Problems Problem Noted Date Diagnosed Date BPH with obstruction/lower urinary tract symptom s Gross hematuria Family History Medical History Relation Name Comments Lung cancer Father Diabetes Maternal Grandmother Relation Name Status Comments Father Maternal Grandmother Social History Tobacco Use Types Packs/Day Years Used Date Smoking Tobacco: Never Smokeless Tobacco: Never Alcohol Use Standard Drinks/Week Comments No 0 (1 standard drink = 0.6 oz pur e alcohol) Sex and Gender Information Value Date Recorded Sex Assigned at Not on file Gender Identity Not on file Sexual Orientation Not on file Job Start Date Occupation Industry Not on file Not on file Not on file Last Filed Vital Signs Vital Sign Reading Time Taken Comments Blood Pressure - - Pulse - - Temperature - - Respiratory Rate - - Oxygen Saturation - - Inhaled Oxygen Concentration - - Weight 88.5 kg (195 lb) 01/25/2018 3:15 PM EDT Height 172.7 cm (5' 8 ) 01/25/2018 3:15 PM EDT Body Mass Index 29.65 01/25/2018 3:15 PM EDT Plan of Treatment Health Maintenance Due Date Last Done Comments COVID-19 Vaccine (#1) 01/16/1936 Depression Screening 1949 Preventative Health Evaluation 1955 DTap / Tdap / Td (1 - Tdap) 1956 Shingrix-Zoster Vaccine (1 of 2) 1987 Fall Risk Assessment 2002 RSV Adult > 60+ Yrs or (1 - 1-dose 75+ series) 2012 Influenza Vaccine (#1) 2024 6, 07/15/2015, 08/14/2014, Additional history exists Pneumococcal Vaccine Completed 01/15/2016, 07/23/20 04 Hepatitis B Vaccines Aged Out No long er eligible based on patient's age to complete this topic RSV Ped < 20 months Aged Out No longe r eligible based on patient's age to complete this topic Care Teams Well Surveying Engineer Relationship Specialty Start Date End Date Sharmila Hanson MD PCP - General Internal Medicine 07/07/17
--- OUTSIDE RECORDS SUMMARY | 2024-11-17 12:51 | XMS_ITS | Encounter Summary ---
Author Organization [facility] Address [address] [place] [address] Care Team Providers Care Elementary School Teacher'S Aide Name Role Phone Sharmila Hanson MD Primary Care Provider [phone] Reason for Visit * Reason Onset Date Comments faxed order 10/16/2024 [facility] D/[facility] Summary Encounter Details Date Type Department Care Team ([facility] st Contact Info) Description 10/16/2024 Telephone Adult Medicine [address] [phone] Alexia Ivan MA faxed order ([facility] D/[facility] Summary ) Social History Tobacco Use Types Packs/Day Years [...] documented in this encounter Progress Notes * Alexia Ivan MA - 10/16/2024 12:31 PM EST Received orders from [facility] Summary . Please sign and fax to [phone] documented in this encounter Plan of Treatment Upcoming Encounters Date Type Department Care Team (Late st Contact Info) Description 01/01/2025 1:00 PM EDT Office Visit Adult Medicine [facility] [address] [place] [address] Sharmila Hanson MD [address] [place] [address] 02/23/2025 9:00 AM EDT Ancillary Procedure [facility] [place] [address] [place] [address] 02/23/2025 10:30 AM EDT Office Visit [facility] [place] [address] [facility] [address] [place] [address] Irais Agarwal MD 175 [facility] [address] [place] [address] documented as of this encounter Visit Diagnoses Not on filedocumented in this encounter Additional Health Concerns 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
--- OUTSIDE RECORDS SUMMARY | 2024-11-17 12:51 | XMS_ITS | Encounter Summary ---
Author Organization [facility] Address [address] [place] [address] Care Team Providers Care Android Ios Developer Name Role Phone Sharmila Hanson MD Primary Care Provider [phone] Reason for Visit * Reason Onset Date Comments urine blockage 11/17/2024 Encounter Details Date Type Department Care Team (Late st Contact Info) Description 11/17/2024 Nurse Triage Adult Medicine [facility] [address] [place] [phone] Sharmila Hanson MD [address] [place] [address] urine blockage Social History Tobacco Use Types Packs/Day Years [...] Progress Notes * Heather Lara RN - 11/17/2024 11:46 AM EST She was instructed to take him to an [facility] for further evaluation and treatment. She is in agreement with this plan. Reason for Disposition Bleeding around catheter (e.g., from penis or female urethra) Answer Assessment - Initial Assessment Questions 1. SYMPTOMS: What symptoms are you concerned about? There is swelling around pt's penis. There is blood draining from pt's penis. 2. ONSET: When did the symptoms start? The swelling started 1-2 days ago 3. FEVER: Is there a fever? If Yes, ask: What is the temperature, how was it measured, and when did it start? No fever 4. ABDOMEN PAIN: Is there any abdomen pain? (Scale 1-10; or mild, moderate, severe) No 5. URINE COLOR: What color is the urine? Is there blood present in the urine? (e.g., clear, yellow, cloudy, tea-colored, blood streaks, bright red) His urine is yellow in color 6. URINE AMOUNT: When did you last empty the urine from the collection bag? How much urine was in the bag at that time? How much urine is in the collection bag now? The bag was last emptied this morning and there was 300 ml's of urine in the bag. She states she emptied the bag the night before as well. 7. INSERTION: How long have you (they) had the catheter? The catheter has been in place for 1.5 months. [facility]. He follow with a urologist Dr. Cowart 8. OTHER SYMPTOMS: Are there any other symptoms? (e.g., abdomen swelling, back pain, bladder spasms, constipation, foul smelling urine, leaking of urine) No other symptoms 9. MEDICINES: Are you taking any medicines to treat urinary problems? (e.g., antibiotics for a urinary tract infection, medicines to treat bladder spasms) No 10. : Is there any chance you are ? When was your last menstrual period? Pt is a male Protocols used: Urinary Catheter (e.g., Price) Symptoms and [id number] * Estefania Landrum - 11/17/2024 10:29 AM EST [facility] CALL Which A office is calling? [facility] / Full name of caller: Ren The caller is A nurse Is the caller at the patients home?: yes Reason for call: Patient noticed some blood in urine on 11/16/2024. Patient does have fully cath. Private area is not completely swollen. Home nurse is advising either medication or a appointment as soon as possible. Patient bag has been almost empty. No blood in bag, home nurse is assuming its coming from some where else. Patient is concerned regarding blockage. Does caller need an urgent call back? yes Was CONTACT Telephone # obtained above?: yes Fax #: documented in this encounter Plan of Treatment Upcoming Encounters Date Type Department Care Team (Late st Contact Info) Description 01/01/2025 1:00 PM EDT Office Visit Adult Medicine [facility] [address] [place] [address] Sharmila Hanson MD [address] [place] [address] 02/23/2025 9:00 AM EDT [facility] [address] [phone] 02/23/2025 10:30 AM EDT Office Visit [facility] [address] [phone] Irais Agarwal MD [address] [address] documented as of this encounter Visit Diagnoses Not on filedocumented in this encounter Additional Health Concerns 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
--- OUTSIDE RECORDS SUMMARY | 2024-11-17 12:51 | XMS_ITS | Encounter Summary ---
Author Organization [facility] Address [address] [place] [address] Care Team Providers Care Imaging Analyst Name Role Phone Sharmila Hanson MD Primary Care Provider [phone] Reason for Visit * Reason Onset Date Comments [facility] 11/07/2024 REQUESTING AM LODIPINE Encounter Details Date Type Department Care Team (Late st Contact Info) Description 11/07/2024 Telephone [facility] [address] [facility] [address] [place] [address] Francheska Keys PA [address] [place] [address] [facility] (REQUESTING AMLODIPINE ) Social History Tobacco Use Types Packs/Day [...] documented in this encounter Progress Notes * Celine Simmons MA - 11/07/2024 10:49 AM EST Cornelia with [facility] called requesting a refill for Amlodipine 2.5mg that was started at one of [facility] stays. Last office visit with Francheska Whitlock PA-C was 02/14/24. She stated that he had missed a follow up previously due to being in the hospital, but our records do not reflect that.I told Cornelia that we would be unable to send in the prescription for Amlodipine as we have not seen him, we did not order and he was not consulted with our providers during at least the last 2 hospital stays for UTI. The patients PCP is following him, has seen him in hospital f/u after one stayand is scheduled to see PCP in December. Advised that Cornelia should contact the PCP. documented in this encounter Plan of Treatment Upcoming Encounters Date Type Department Care Team (Late st Contact Info) Description 01/01/2025 1:00 PM EDT Office Visit Adult Medicine [facility] [address] [place] [address] Sharmila Hanson MD [address] [place] [phone] 02/23/2025 9:00 AM EDT Ancillary Procedure [facility] [address] [phone] 02/23/2025 10:30 AM EDT Office Visit [address] [phone] Irais Agarwal MD [address] [address] documented as of this encounter Visit Diagnoses Not on filedocumented in this encounter Additional Health Concerns 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
--- OUTSIDE RECORDS SUMMARY | 2024-11-17 12:51 | XMS_ITS | Encounter Summary ---
Author Name [facility] [place] Organization [facility] [place] Address [address] [place] [address] Support Name Relationship Address Phone KEVIN MCKINNON Next of Kin [address] [place] [address] KEVIN MCKINNON Emergency Contact [address] [place] [address] JAMAL MCKINNON Next of Kin [address] [place] [address] JAMAL MCKINNON Emergency Contact [address] [place] [address] Insurance Providers: All historical and current Section Date Range: From patient's date of to the date document was created. This section includes the names of all active insurance providers for the patient. Insurance Provider Type of Coverage Plan Name Start of Policy Coverage End of Policy Coverage Group Number Member ID Insurance Provider's Telephone Number Policy Garcia's Name Patient's Relationship to Policy Garcia [employer] PRESCRIPT ION RX Oct 04, 2022 THPRX [id number] JUANIS MCKINNON PATIENT [facility] HE[facility] PLAN ZACH Faustin Oct 04, 2017 [facility] [id number] [phone] JUANIS MCKINNON PATIENT Selected Encounter This section includes the information on record at [place] for the Encounter. Date/Time Encounter Type Encounter Description Reason Pro vider Source Nov 08, 2024 09:15 AM Outpatient Encounter ADMIN PAT ACTIVTIES (MASNONCT) IHE Encounter Template Text not used by [place] Plan of Treatment: Future Appointments (+ 6 months) and Future Tests (+/- 45 days) The Plan of Treatment section includes future care activities for the patient from all [facility] treatment[facility]ilities. This section includes future appointments and future orders which are active, pending or scheduled. Future Appointments This section includes appointments that were scheduled to occur 6 months from the date of the Encounter, up to a maximum of 20 appointments. The data comes from all [place] treatment facilities. Appointment Date/Time Appointment Type Appointme nt Facility Name Dec 18, 2024 02:00 PM AMBULATORY - MEDICINE [facility] Encounter Notes: All associated encounter notes This section contains the clinical notes associated to the Encounter. Date/Time Encounter Note(s) Provider Source Nov 10, 2024 04:11 PM ADDENDUM: LOCAL TITLE: Addendum STANDARD TITLE: ADDENDUM DATE OF NOTE: NOV 10, 2024@16:11:44 ENTRY DATE: NOV 10, 2024@16:11:45 AUTHOR: ELZBIETA RUIZ EXP COSIGNER: URGENCY: STATUS: COMPLETED AMSA/RN please call to schedule for a 60 min new patient appointment within 20 days, virtual or face to face to meet new pt scheduling guidelines. Appointment needs to be scheduled on or before Nov PATIENT PHONE - [phone] No data available /miguel/ ELZBIETA RUIZ STAGE ELECTRICIAN HELPER LINEWORKER Signed: 11/10/2024 16:11 Receipt Acknowledged By: 11/13/2024 09:45 /miguel/ ANAI DESIR AMSA === --- Original Document --- 11/08/24 CCC: SCHEDULING ADMINISTRATION: Patient Demographics Patient Name: JUANIS MCKINNON Patient Primary Phone: [phone] Patient Primary Address: [address] [place] [address] [place] [address] Patient : 1935 Patient Age: 89 Caller/Recipient Relation to Patient: Other If Other Describe Relation to Patient: Spouse Caller Name: Brittni Scheduling Scheduling Note Reason: Patient is Requesting Consult/ Referral Administrative Administrative Note Comments: spouse Brittni calling requesting pcp assignment in [place]. Vet can be reached at [phone], IMPORTANT: This note was created by [facility] Clinical Contact Center staff. Please do not alert the staff member by adding them as a signer for future communications. Alerts are not monitored by this user. /mgiuel/ Elzbieta FOX 1 [facility] AMSA Signed: 11/08/2024 09:16 Receipt Acknowledged By: 11/10/2024 14:19 /es/ HARSHAD CARDENAS MSA STAGE ELECTRICIAN HELPER, [facility] 11/08/2024 17:05 /es/ KAELYN AGUILAR STAGE ELECTRICIAN HELPER AMSA 11/10/2024 16:11 /es/ ELZBIETA RUIZ STAGE ELECTRICIAN HELPER LINEWORKER JOSEPHELZBIETA R [facility] [place] [facility] Nov 08, 2024 09:15 AM ADMINISTRATIVE NOTE: LOCAL TITLE: CCC: SCHEDULING ADMINISTRATION STANDARD TITLE: ADMINISTRATIVE NOTE DATE OF NOTE: NOV 08, 2024@09:15:59 ENTRY DATE: NOV 08, 2024@09:15:59 AUTHOR: ELZBIETA BRAGG COSIGNER: URGENCY: STATUS: COMPLETED CCC: SCHEDULING ADMINISTRATION Has ADDENDA Patient Demographics Patient Name: JUANIS MCKINNON Patient Primary Phone: [phone] Patient Primary Address: [address] [place] [address] [place] [address] Patient : 1935 Patient Age: 89 Caller/Recipient Relation to Patient: Other If Other Describe Relation to Patient: Spouse Caller Name: Brittni Scheduling Scheduling Note Reason: Patient is Requesting Consult/ Referral Administrative Administrative Note Comments: spouse Brittni calling requesting pcp assignment in [place]. Vet can be reached at [phone], IMPORTANT: This note was created by [facility] Clinical Contact Center staff. Please do not alert the staff member by adding them as a signer for future communications. Alerts are not monitored by this user. /miguel/ Elzbieta FOX 1 [facility] AMSA Signed: 11/08/2024 09:16 Receipt Acknowledged By: 11/10/2024 14:19 /es/ HARSHAD CARDENAS MSA STAGE ELECTRICIAN HELPER, [facility] 11/08/2024 17:05 /es/ KAELYN AGUILAR STAGE ELECTRICIAN HELPER AMSA 11/10/2024 16:11 /es/ ELZBIETA RUIZ STAGE ELECTRICIAN HELPER LINEWORKER 11/10/2024 ADDENDUM STATUS: COMPLETED AMSA/RN please call to schedule for a 60 min new patient appointment within 20 days, virtual or face to face to meet new pt scheduling guidelines. Appointment needs to be scheduled on or before Nov PATIENT PHONE - [phone] No data available /miguel/ ELZBIETA RUIZ STAGE ELECTRICIAN HELPER LINEWORKER Signed: 11/10/2024 16:11 Receipt Acknowledged By: * AWAITING SIGNATURE * ANAI DESIR HEATHER [facility]
--- OUTSIDE RECORDS SUMMARY | 2024-11-17 12:51 | XMS_ITS | Encounter Summary ---
Author Organization [facility] Address [address] [place] [address] Care Team Providers Care Pulverizing And Sifting Operator Name Role Phone Sharmila Hanson MD Primary Care Provider [phone] Encounter Details Date Type Department Care Team (Late st Contact Info) Description 09/18/2024 Lab Requisition [facility] - Main Lab [address] [facility] [place] [address] Roxana Murray MD [address] [phone] Urinary tract infection, site not specified; Type 2 diabetes mellitus without complications (CMS/HCC); Unspecified atrial fibrillation (CMS/HCC) Social History Tobacco Use Types Packs/Day Years Used Date Smoking Tobacco: Never Smokeless Tobacco: Never Alcohol Use Standard Drinks/Week Comments Not Currently 0 (1 standard drink = 0.6 oz pur e alcohol) Interpersonal Safety Answer Date Record ed Physical Abuse 09/13/2024 Verbal Abuse 09/13/2024 Sex and Gender Information Value Date Recorded [...] 1:00 PM EDT Office Visit Adult Medicine [address] [phone] Sharmila Hanson MD [address] [place] [address] 02/23/2025 9:00 AM EDT Ancillary Procedure [address] [phone] 02/23/2025 10:30 AM EDT Office Visit [address] [phone] Irais Agarwal MD [address] [place] [address] documented as of this encounter Procedures Procedure Name Priority Date/Time Associated Diagnosis Comments COMPLETE BLOOD COUNT Routine 09/18/2024 9:29 AM EST Urinary tract infection, site not specified Type 2 diabetes mellitus without complications (CMS/HCC) Unspecified atrial fibrillation (CMS/HCC) HEMOGLOBIN A1C Routine 09/18/2024 9:29 AM EST Urinary tract infection, site not specified Type 2 diabetes mellitus without complications (CMS/HCC) Unspecified atrial fibrillation (CMS/HCC) COMPREHENSIVE METABOLIC PANEL Routine 09/18/2024 9:29 AM EST Urinary tract infection, site not specified Type 2 diabetes mellitus without complications (CMS/HCC) Unspecified atrial fibrillation (CMS/HCC) documented in this encounter Results * (ABNORMAL) Hemoglobin A1c (09/18/2024 9:29 AM EST) Hemoglobin A1C 7.3(H) <6.5 % LAB CHEMISTRY METHOD 09/18/2024 2:45 PM EST [facility] Mean Bld Glu Estim. 163 mg/dL LAB CHEMISTRY METHOD 09/18/2024 2:45 PM EST [facility] Blood Venous blood specimen / Unknown Venipuncture / Unknown 09/18/2024 9:29 AM EST 09/18/2024 12:25 PM EST us Roxana Murray MD LAB BLOOD ORDERABLES Fin al Result [facility] [address] [place] [address], * (ABNORMAL) Comprehensive metabolic panel (09/18/2024 9:29 AM EST) Sodium 133 133 - 145 mmol/L LAB CHEMISTRY METHOD 09/18/2024 5:05 PM EST [facility] Potassium 4.7 3.5 - 5.5 mmol/L LAB CHEMISTRY METHOD 09/18/2024 5:05 PM [facility] Chloride 99 96 - 110 mmol/L LAB CHEMISTRY METHOD 09/18/2024 5:05 PM [facility] CO2 25 21 - 32 mmol/L LAB CHEMISTRY METHOD 09/18/2024 5:05 PM [facility] Anion Gap 9 3 - 11 LAB CHEMISTRY METHOD 09/18/2024 5:05 PM [facility] Glucose 126(H) 70 - 100 mg/dL LAB CHEMISTRY METHOD 09/18/2024 5:05 PM [facility] BUN 17 5 - 25 mg/dL LAB CHEMISTRY METHOD 09/18/2024 5:05 PM [facility] Creatinine 1.08 0.70 - 1.30 mg/dL LAB CHEMISTRY METHOD 09/18/2024 5:05 PM [facility] eGFR 66 >=60 mL/min/1. 73m2 LAB CHEMISTRY METHOD 09/18/2024 5:05 PM [facility] Comment:Calculation based on the??Chronic Kidney Disease Epidemiology Collaboration (CKD-EPI) equation refit??without adjustment for race. BUN/Creatinine Ratio 15.7 LAB CHEMISTRY METHOD 09/18/2024 5:05 PM [facility] Calcium 10.3 8.5 - 10.5 mg/dL LAB CHEMISTRY METHOD 09/18/2024 5:05 PM [facility] AST (SGOT) 32 10 - 42 unit/L LAB CHEMISTRY METHOD 09/18/2024 5:05 PM [facility] ALT (SGPT) 29 10 - 60 unit/L LAB CHEMISTRY METHOD 09/18/2024 5:05 PM [facility] Alkaline Phosphatase 298(H) 42 - 121 unit/L LAB CHEMISTRY METHOD 09/18/2024 5:05 PM [facility] Total Protein 6.8 6.0 - 8.0 g/dL LAB CHEMISTRY METHOD 09/18/2024 5:05 PM [facility] Albumin 3.3 3.2 - 5.0 g/dL LAB CHEMISTRY METHOD 09/18/2024 5:05 PM [facility] Total Bilirubin 0.7 0.0 - 1.4 mg/dL LAB CHEMISTRY METHOD 09/18/2024 5:05 PM [facility] Blood Venous blood specimen / Unknown Venipuncture / Unknown 09/18/2024 9:29 AM EST 09/18/2024 12:25 PM EST us Roxana Murray MD LAB BLOOD ORDERABLES Fin al Result [facility] [address] [place] [address], [place] [phone] * (ABNORMAL) Complete blood count (09/18/2024 9:29 AM EST) WBC 9.7 4.8 - 10.8 K/mcL LAB HEMETOLOGY METHOD 09/18/2024 1:05 PM [facility] RBC 4.10(L) 4.50 - 5.50 M/[facility] LAB HEMETOLOGY METHOD 09/18/2024 1:05 PM [facility] Hemoglobin 12.1(L) 13.5 - 17.5 g/dL LAB HEMETOLOGY METHOD 09/18/2024 1:05 PM [facility] Hematocrit 38.1(L) 42.0 - 54.0 % LAB HEMETOLOGY METHOD 09/18/2024 1:05 PM [facility] MCV 93.6 79.0 - 98.0 FL LAB HEMETOLOGY METHOD 09/18/2024 1:05 PM [facility] MCH 29.7 27.0 - 32.0 pcg LAB HEMETOLOGY METHOD 09/18/2024 1:05 PM [facility] MCHC 31.8(L) 32.0 - 37.0 g/dL LAB HEMETOLOGY METHOD 09/18/2024 1:05 PM EST [facility] RDW 13.5 11.0 - 15.0 % LAB HEMETOLOGY METHOD 09/18/2024 1:05 PM [facility] Platelets 258 130 - 400 K/mcL LAB HEMETOLOGY METHOD 09/18/2024 1:05 PM [facility] MPV 8.4 7.0 - 11.0 FL LAB HEMETOLOGY METHOD 09/18/2024 1:05 PM EST [facility] NRBC 0.0 <1.0 % LAB HEMETOLOGY METHOD 09/18/2024 1:05 PM [facility] NRBC Absolute 0.00 <0.10 K/mcL LAB HEMETOLOGY METHOD 09/18/2024 1:05 PM [facility] Blood Venous blood specimen / Unknown Venipuncture / Unknown 09/18/2024 9:29 AM EST 09/18/2024 12:25 PM EST Roxana Murray MD LAB BLOOD ORDERABLES Fin al Result [facility] [address] [place] [address], documented in this encounter Visit Diagnoses Diagnosis Urinary tract infection, site not specified Type 2 diabetes mellitus without complications (CMS/HCC) Unspecified atrial fibrillation (CMS/HCC) documented in this encounter Additional Health Concerns 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
--- OUTSIDE RECORDS SUMMARY | 2024-11-17 12:51 | XMS_ITS | Encounter Summary ---
Author Organization [facility] Address [address] [place] [address] Care Team Providers Care Cyber Security Analyst Name Role Phone Sharmila Hanson MD Primary Care Provider [phone] Encounter Details Date Type Department Care Team (Late st Contact Info) Description 11/12/2024 Lab Requisition [facility] - Main Lab [address] [place] [address] Roxana Murray MD [address] [phone] Essential (primary) hypertension; Urinary tract infection, site not specified Social [...] 1:00 PM EDT Office Visit Adult Medicine [address] [phone] Sharmila Hanson MD [address] [place] [address] 02/23/2025 9:00 AM EDT Ancillary Procedure [address] [phone] 02/23/2025 10:30 AM EDT Office Visit [address] [phone] Irais Agarwal MD [address] [place] [address] documented as of this encounter Visit Diagnoses Diagnosis Essential (primary) hypertension Unspecified essential hypertension Urinary tract infection, site not specified documented in this encounter Additional Health Concerns 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
--- OUTSIDE RECORDS SUMMARY | 2024-11-17 12:51 | XMS_ITS | Encounter Summary ---
Author Name [facility]) [facility] Address [address] [place] [address] Support Name Relationship Address Phone KEVIN MCKINNON Next of Kin [address] [place] [address] KEVIN MCKINNON Emergency Contact [address] [place] [address] JAMAL MCKINNON Next of Kin [address] [place] [address] JAMAL MCKINNON Emergency Contact [address] [place] [address] Insurance Providers: All historical and current Section [...] PRESCRIPT ION RX Oct 04, 2022 THPRX [id number] [phone] JUANIS MCKINNON PATIENT [facility] PLAN ZACH Faustin Oct 04, 2017 [facility] [id number] JUANIS MCKINNON PATIENT Selected Encounter This section includes the information on record at [place] for the Encounter. Date/Time Encounter Type Encounter Description Reason Pro vider Source Nov 13, 2024 09:45 AM Outpatient Encounter PRIMARY CARE/MEDICINE IHE Encounter Template Text not used by MD Plan of Treatment: Future Appointments (+ 6 [...] 20 appointments. The data comes from all [place] treatment facilities. Appointment Date/Time Appointment Type Appointme nt Facility Name Dec 18, 2024 02:00 PM AMBULATORY - MEDICINE [facility] Encounter Notes: All associated encounter notes This section contains the clinical notes associated to the Encounter. Date/Time Encounter Note(s) Provider Source Nov 13, 2024 09:48 AM LETTERS: LOCAL TITLE: PATIENT LETTER (B) STANDARD TITLE: LETTERS DATE OF NOTE: NOV 13, 2024@09:48 ENTRY DATE: NOV 13, 2024@09:48:05 AUTHOR: ANAI DESIR COSIGNER: URGENCY: STATUS: COMPLETED [facility] [address] [place] [address] 2 [phone] * [phone] * JUANIS MCKINNON [facility] [address] [place] [address] Date: NOV 13, 2024 Dear : Welcome to the [facility] Outpatient primary care team. Prior to meeting you at your new patient appointment we are requesting some of your past medical history so that we may provide you with the exceptional care you deserve. Please note that it is very helpful to have these documents at least two days prior to your appointment date as the more information we have the better we will be able to meet your needs: * Last History & Physical * Immunization records * Medication list * Diagnosis list * Most recent labs * Diagnostic screens (Colonoscopy, Abdominal Aortic Aneurysm screen, Mammograms, PAPS, etc.) You may either drop the requested records off in person to [address] [place] [address] or you may have them faxed to: [phone] *Also, please complete the enclosed new patient packet and fax it, mail it to us or drop it off at our [place] location: [address] [place] [address] If you have any questions, please do not hesitate to contact the Department of 's Affairs call center at . We look forward to providing your health care! Sincerely, Office Staff for: Primary Care [place] [facility] [address] [place] [address] T [phone] F [phone] Upcoming Appointments: 12/18/2024 14:00 SPR PACT 3 PA APPOINTMENT [facility] (SPOPC OR SO = [place], [address] [place] [address]) (GOPC OR GO = [address]) ([facility] = [facility]) (VVC - Video Call) (Tel-X Telephone Visit) ( - Telehealth) ANAI DESIR FLEMING Nov 13, 2024 09:45 AM ADMINISTRATIVE NOT E: LOCAL TITLE: ADMINISTRATIVE NOTE STANDARD TITLE: ADMINISTRATIVE NOTE DATE OF NOTE: NOV 13, 2024@09:45 ENTRY DATE: NOV 13, 2024@09:46:03 AUTHOR: ANAI DESIR EXP COSIGNER: URGENCY: STATUS: COMPLETED ADMINISTRATIVE NOTE Has ADDENDA NEW PATIENT APPT BOOKED 12/18/24 F2F @ 2PM 60 MINS PACKET MAILED APPT LETTER ATTACHED NON VA PROVIDER PCP: Dr. Sharmila Hanson Md [address] [place] [address] /miguel/ ANAI DESIR AMSA Signed: 11/13/2024 09:47 Receipt Acknowledged By: 11/13/2024 10:00 /miguel/ Pushpa Li RN Registered Nurse (RN) * AWAITING SIGNATURE * DELORIS MAN 11/13/2024 10:44 /es/ CAROL ZENG LPN LICENSED PRACTICAL NURSE 11/14/2024 08:56 /miguel/ JAVIER SPRAGUE Advanced Stage Technician 11/14/2024 ADDENDUM STATUS: COMPLETED MEDICAL RECORDS REQUESTED /miguel/ JAVIER SPRAGUE Advanced Stage Technician Signed: 11/14/2024 08:56 ANAI DESIR
--- OUTSIDE RECORDS SUMMARY | 2024-11-17 12:51 | XMS_ITS | Encounter Summary ---
Author Organization [facility] Address [address] [place] [address] Care Team Providers Care Human Resources Team Member Name Role Phone Sharmila Hanson MD Primary Care Provider [phone] Encounter Details Date Type Department Care Team (Late st Contact Info) Description 10/28/2024 Lab Requisition [facility] - Main Lab [address] [place] [address] Roxana Murray MD [address] [phone] Urinary tract infection, site not specified; Essential (primary) hypertension Social History Tobacco Use Types Packs/Day Years [...] 1:00 PM EDT Office Visit Adult Medicine [address] [phone] Sharmila Hanson MD [address] [place] [address] 02/23/2025 9:00 AM EDT Ancillary Procedure [address] [phone] 02/23/2025 10:30 AM EDT Office Visit [address] [phone] Irais Agarwal MD [address] [place] [address] documented as of this encounter Procedures Procedure Name Priority Date/Time Associated Diagnosis Comments COMPLETE BLOOD COUNT Routine 10/30/2024 9:50 AM EST Urinary tract infection, site not specified Essential (primary) hypertension COMPREHENSIVE METABOLIC PANEL Routine 10/30/2024 9:50 AM EST Urinary tract infection, site not specified Essential (primary) hypertension documented in this encounter Results * (ABNORMAL) Comprehensive metabolic panel (10/30/2024 9:50 AM EST) Sodium 132(L) 133 - 145 mmol/L LAB CHEMISTRY METHOD 10/30/2024 1:51 PM [facility] Potassium 4.2 3.5 - 5.5 mmol/L LAB CHEMISTRY METHOD 10/30/2024 1:51 PM [facility] Chloride 99 96 - 110 mmol/L LAB CHEMISTRY METHOD 10/30/2024 1:51 PM [facility] CO2 25 21 - 32 mmol/L LAB CHEMISTRY METHOD 10/30/2024 1:51 PM [facility] Anion Gap 8 3 - 11 LAB CHEMISTRY METHOD 10/30/2024 1:51 PM [facility] Glucose 192(H) 70 - 100 mg/dL LAB CHEMISTRY METHOD 10/30/2024 1:51 PM [facility] BUN 13 5 - 25 mg/dL LAB CHEMISTRY METHOD 10/30/2024 1:51 PM [facility] Creatinine 1.01 0.70 - 1.30 mg/dL LAB CHEMISTRY METHOD 10/30/2024 1:51 PM [facility] eGFR 72 >=60 mL/min/1. 73m2 LAB CHEMISTRY METHOD 10/30/2024 1:51 PM [facility] Comment:Calculation based on the??Chronic Kidney Disease Epidemiology Collaboration (CKD-EPI) equation refit??without adjustment for race. BUN/Creatinine Ratio 12.9 LAB CHEMISTRY METHOD 10/30/2024 1:51 PM [facility] Calcium 9.5 8.5 - 10.5 mg/dL LAB CHEMISTRY METHOD 10/30/2024 1:51 PM [facility] AST (SGOT) 29 10 - 42 unit/L LAB CHEMISTRY METHOD 10/30/2024 1:51 PM [facility] ALT (SGPT) 19 10 - 60 unit/L LAB CHEMISTRY METHOD 10/30/2024 1:51 PM [facility] Alkaline Phosphatase 220(H) 42 - 121 unit/L LAB CHEMISTRY METHOD 10/30/2024 1:51 PM [facility] Total Protein 6.9 6.0 - 8.0 g/dL LAB CHEMISTRY METHOD 10/30/2024 1:51 PM [facility] Albumin 3.0(L) 3.2 - 5.0 g/dL LAB CHEMISTRY METHOD 10/30/2024 1:51 PM [facility] Total Bilirubin 0.5 0.0 - 1.4 mg/dL LAB CHEMISTRY METHOD 10/30/2024 1:51 PM [facility] Blood Venous blood specimen / Unknown Venipuncture / Unknown 10/30/2024 9:50 AM EST 10/30/2024 11:47 AM EST us Roxana Murray MD LAB BLOOD ORDERABLES Fin al Result [facility] [address] [place] [address], * (ABNORMAL) Complete blood count (10/30/2024 9:50 AM EST) WBC 8.9 4.8 - 10.8 K/mcL LAB HEMETOLOGY METHOD 10/30/2024 2:03 PM [facility] RBC 2.90(L) 4.50 - 5.50 M/mcL LAB HEMETOLOGY METHOD 10/30/2024 2:03 PM [facility] Hemoglobin 8.7(L) 13.5 - 17.5 g/dL LAB HEMETOLOGY METHOD 10/30/2024 2:03 PM [facility] Hematocrit 28.4(L) 42.0 - 54.0 % LAB HEMETOLOGY METHOD 10/30/2024 2:03 PM [facility] MCV 99.0(H) 79.0 - 98.0 FL LAB HEMETOLOGY METHOD 10/30/2024 2:03 PM [facility] MCH 30.3 27.0 - 32.0 pcg LAB HEMETOLOGY METHOD 10/30/2024 2:03 PM [facility] MCHC 30.6(L) 32.0 - 37.0 g/dL LAB HEMETOLOGY METHOD 10/30/2024 2:03 PM [facility] RDW 15.6(H) 11.0 - 15.0 % LAB HEMETOLOGY METHOD 10/30/2024 2:03 PM [facility] Platelets 454(H) 130 - 400 K/mcL LAB HEMETOLOGY METHOD 10/30/2024 2:03 PM [facility] MPV 7.8 7.0 - 11.0 FL LAB HEMETOLOGY METHOD 10/30/2024 2:03 PM [facility] NRBC 0.0 <1.0 % LAB HEMETOLOGY METHOD 10/30/2024 2:03 PM [facility] NRBC Absolute 0.00 <0.10 K/mcL LAB HEMETOLOGY METHOD 10/30/2024 2:03 PM [facility] Blood Venous blood specimen / Unknown Venipuncture / Unknown 10/30/2024 9:50 AM EST 10/30/2024 11:47 AM EST us Roxana Murray MD LAB BLOOD ORDERABLES Fin al Result [facility] [address] [place] [address], documented in this encounter Visit Diagnoses Diagnosis Urinary tract infection, site not specified Essential (primary) hypertension Unspecified essential hypertension documented in this encounter Additional Health Concerns 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
--- OUTSIDE RECORDS SUMMARY | 2024-11-17 12:51 | XMS_ITS | Encounter Summary ---
Author Name [facility] [place] Organization [facility] [place] Address [address] [place] [address] Support Name Relationship Address Phone PENNIE MCKINNON Next of Kin [address] [place] [address] PENNIE MCKINNON Emergency Contact [address] [place] [address] JAMAL MCKINNON Next of Kin [address] [place] [address] JAMAL MCKINNON Emergency Contact [address] [place] [address] Insurance Providers: All historical and current Section [...] PRESCRIPT ION RX Oct 04, 2022 THPRX [id number] JUANIS MCKINNON PATIENT [facility] ZACH Faustin Oct 04, 2017 [facility] [id number] JUANIS MCKINNON PATIENT Selected Encounter This section includes the information on record at [place] for the Encounter. Date/Time Encounter Type Encounter Description Reason Pro vider Source Oct 10, 2024 11:52 AM Outpatient Encounter ADMIN PAT ACTIVTIES (MASNONCT) IHE Encounter Template Text not used by [place] Plan of Treatment: Future Appointments (+ 6 [...] 20 appointments. The data comes from all [place] treatment facilities. Appointment Date/Time Appointment Type Appointme nt Facility Name Dec 18, 2024 02:00 PM AMBULATORY - MEDICINE [facility] Encounter Notes: All associated encounter notes This section contains the clinical notes associated to the Encounter. Date/Time Encounter Note(s) Provider Source Oct 10, 2024 11:52 AM CLINICAL WARNING: LOCAL TITLE: COMMUNICATION AUTHORIZATION STANDARD TITLE: CLINICAL WARNING DATE OF NOTE: OCT 10, 2024@11:52 ENTRY DATE: OCT 10, 2024@11:52:39 AUTHOR: GRACIA ABDI [place] EXP COSIGNER: URGENCY: STATUS: COMPLETED Family/Caregiver Name: Primary: Pennie Mckinnon (spouse) Secondary: Lexy Mckinonn (daughter) Tertiary: Jodee Mckinnon (daughter) Authorized Clinic & Topics: All Clinic's & Topics: All Care/Coordination Primary Care: All Care/Coordination Mental Health: All Care/Coordination Specialty Care: All Care/Coordination [id number] Protected Info: [ ] Drug Abuse [ ] Alcohol Abuse [ ] HIV [ ] Sickle Cell Expiration: Date: [ ] At [X] Through [ ] At end of care // GRACIA ABDI PIPE MACHINE OPERATOR Signed: 10/10/2024 11:53 GRACIA ABDI [place] [facility]
--- OUTSIDE RECORDS SUMMARY | 2024-11-17 12:51 | XMS_ITS | Encounter Summary ---
Author Organization [facility] Address [address] [place] [address] Care Team Providers Care Business Advisor Name Role Phone Sharmila Hanson MD Primary Care Provider [phone] Encounter Details Date Type Department Care Team (Late st Contact Info) Description 10/27/2024 Telephone [facility] [address] [place] [address] Sharmila Hanson MD [address] [place], [place] Social History Tobacco Use Types Packs/Day Years [...] 1:00 PM EDT Office Visit [facility] [address] [place] [phone] Sharmila Hanson MD [address] [place] [address] 02/23/2025 9:00 AM EDT Ancillary Procedure [address] [phone] 02/23/2025 10:30 AM EDT Office Visit [address] [phone] Irais Agarwal MD [address] [address] documented as of this encounter Visit Diagnoses Not on filedocumented in this encounter Additional Health Concerns 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
--- OUTSIDE RECORDS SUMMARY | 2024-11-17 12:51 | XMS_ITS | Encounter Summary ---
Author Organization [facility] Address [address] [place] [address] Care Team Providers Care School Age Teacher Name Role Phone Sharmila Hanson MD Primary Care Provider [phone] Encounter Details Date Type Department Care Team (Late st Contact Info) Description 11/03/[address] [facility] - Main Lab [address] [place] [address] Roxana Murray MD [address] [phone] Urinary tract infection, site not specified; Essential [...] of Assessment Author No 09/10/2024 12:34 PM Doreen Tobin RN * Are you blind or [...] 1:00 PM EDT Office Visit Adult Medicine [address] [phone] Sharmila Hanson MD [address] [place] [address] 02/23/2025 9:00 AM EDT Ancillary Procedure [address] [phone] 02/23/2025 10:30 AM EDT Office Visit [address] [phone] Irais Agarwal MD [address] [place] [address] documented as of this encounter Procedures Procedure Name Priority Date/Time Associated Diagnosis Comments COMPLETE BLOOD COUNT Routine 11/06/2024 8:31 AM EST Urinary tract infection, site not specified Essential (primary) hypertension COMPREHENSIVE METABOLIC PANEL Routine 11/06/2024 8:31 AM EST Urinary tract infection, site not specified Essential (primary) hypertension documented in this encounter Results * (ABNORMAL) Comprehensive metabolic panel (11/06/2024 8:31 AM EST) Sodium 132(L) 133 - 145 mmol/L LAB CHEMISTRY METHOD 11/06/2024 1:40 PM [facility] Potassium 4.4 3.5 - 5.5 mmol/L LAB CHEMISTRY METHOD 11/06/2024 1:40 PM [facility] Chloride 98 96 - 110 mmol/L LAB CHEMISTRY METHOD 11/06/2024 1:40 PM [facility] CO2 24 21 - 32 mmol/L LAB CHEMISTRY METHOD 11/06/2024 1:40 PM [facility] Anion Gap 10 3 - 11 LAB CHEMISTRY METHOD 11/06/2024 1:40 PM [facility] Glucose 169(H) 70 - 100 mg/dL LAB CHEMISTRY METHOD 11/06/2024 1:40 PM [facility] BUN 18 5 - 25 mg/dL LAB CHEMISTRY METHOD 11/06/2024 1:40 PM [facility] Creatinine 0.99 0.70 - 1.30 mg/dL LAB CHEMISTRY METHOD 11/06/2024 1:40 PM [facility] eGFR 74 >=60 mL/min/1. 73m2 LAB CHEMISTRY METHOD 11/06/2024 1:40 PM [facility] Comment:Calculation based on the??Chronic Kidney Disease Epidemiology Collaboration (CKD-EPI) equation refit??without adjustment for race. BUN/Creatinine Ratio 18.2 LAB CHEMISTRY METHOD 11/06/2024 1:40 PM EST [facility] Calcium 9.7 8.5 - 10.5 mg/dL LAB CHEMISTRY METHOD 11/06/2024 1:40 PM [facility] AST (SGOT) 24 10 - 42 unit/L LAB CHEMISTRY METHOD 11/06/2024 1:40 PM [facility] ALT (SGPT) 21 10 - 60 unit/L LAB CHEMISTRY METHOD 11/06/2024 1:40 PM [facility] Alkaline Phosphatase 216(H) 42 - 121 unit/L LAB CHEMISTRY METHOD 11/06/2024 1:40 PM [facility] Total Protein 7.1 6.0 - 8.0 g/dL LAB CHEMISTRY METHOD 11/06/2024 1:40 PM [facility] Albumin 3.1(L) 3.2 - 5.0 g/dL LAB CHEMISTRY METHOD 11/06/2024 1:40 PM [facility] Total Bilirubin 0.4 0.0 - 1.4 mg/dL LAB CHEMISTRY METHOD 11/06/2024 1:40 PM [facility] Blood Venous blood specimen / Unknown 11/06/2024 8:31 AM EST 11/06/2024 11:12 AM EST us Roxana Murray MD LAB BLOOD ORDERABLES Fin al Result [facility] [address] [place] [address], * (ABNORMAL) Complete blood count (11/06/2024 8:31 AM EST) WBC 7.5 4.8 - 10.8 K/mcL LAB HEMETOLOGY METHOD 11/06/2024 12:37 PM EST [facility] RBC 3.10(L) 4.50 - 5.50 M/mcL LAB HEMETOLOGY METHOD 11/06/2024 12:37 PM [facility] Hemoglobin 9.2(L) 13.5 - 17.5 g/dL LAB HEMETOLOGY METHOD 11/06/2024 12:37 PM [facility] Hematocrit 29.4(L) 42.0 - 54.0 % LAB HEMETOLOGY METHOD 11/06/2024 12:37 PM [facility] MCV 96.1 79.0 - 98.0 FL LAB HEMETOLOGY METHOD 11/06/2024 12:37 PM [facility] MCH 30.1 27.0 - 32.0 pcg LAB HEMETOLOGY METHOD 11/06/2024 12:37 PM [facility] MCHC 31.3(L) 32.0 - 37.0 g/dL LAB HEMETOLOGY METHOD 11/06/2024 12:37 PM [facility] RDW 14.7 11.0 - 15.0 % LAB HEMETOLOGY METHOD 11/06/2024 12:37 PM [facility] Platelets 414(H) 130 - 400 K/mcL LAB HEMETOLOGY METHOD 11/06/2024 12:37 PM [facility] MPV 8.0 7.0 - 11.0 FL LAB HEMETOLOGY METHOD 11/06/2024 12:37 PM [facility] NRBC 0.0 <1.0 % LAB HEMETOLOGY METHOD 11/06/2024 12:37 PM [facility] NRBC Absolute 0.00 <0.10 K/mcL LAB HEMETOLOGY METHOD 11/06/2024 12:37 PM [facility] Blood Venous blood specimen / Unknown 11/06/2024 8:31 AM EST 11/06/2024 11:12 AM EST us Roxana Murray MD LAB BLOOD ORDERABLES Fin al Result [facility] [address] [place] [address], documented in this encounter Visit Diagnoses Diagnosis Urinary tract infection, site not specified Essential (primary) hypertension Unspecified essential hypertension documented in this encounter Additional Health Concerns 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
--- OUTSIDE RECORDS SUMMARY | 2024-11-17 12:51 | XMS_ITS | Encounter Summary ---
Author Organization [facility] Address [address] [place] [address] Care Team Providers Care Fresh Foods Clerk Name Role Phone Sharmila Hanson MD Primary Care Provider [phone] Encounter Details Date Type Department Care Team (Late st Contact Info) Description 10/20/2024 Lab Requisition [facility] - Main Lab [address] [place] [address] Roxana Murray MD [address] [phone] Essential (primary) hypertension; Chronic kidney disease, unspecified Social History Tobacco Use Types Packs/Day Years [...] 1:00 PM EDT Office Visit Adult Medicine [address] [phone] Sharmila Hanson MD [address] [place] [address] 02/23/2025 9:00 AM EDT Ancillary Procedure [address] [phone] 02/23/2025 10:30 AM EDT Office Visit [address] [phone] Irais Agarwal MD [address] [place] [address] documented as of this encounter Procedures Procedure Name Priority Date/Time Associated Diagnosis Comments COMPLETE BLOOD COUNT Routine 10/20/2024 5:22 AM EST Essential (primary) hypertension Chronic kidney disease, unspecified COMPREHENSIVE METABOLIC PANEL Routine 10/20/2024 5:22 AM EST Essential (primary) hypertension Chronic kidney disease, unspecified documented in this encounter Results * (ABNORMAL) Comprehensive metabolic panel (10/20/2024 5:22 AM EST) Sodium 130(L) 133 - 145 mmol/L LAB CHEMISTRY METHOD 10/20/2024 9:42 AM [facility] Potassium 4.6 3.5 - 5.5 mmol/L LAB CHEMISTRY METHOD 10/20/2024 9:42 AM [facility] Chloride 97 96 - 110 mmol/L LAB CHEMISTRY METHOD 10/20/2024 9:42 AM [facility] CO2 26 21 - 32 mmol/L LAB CHEMISTRY METHOD 10/20/2024 9:42 AM [facility] Anion Gap 7 3 - 11 LAB CHEMISTRY METHOD 10/20/2024 9:42 AM [facility] Glucose 110(H) 70 - 100 mg/dL LAB CHEMISTRY METHOD 10/20/2024 9:42 AM [facility] BUN 16 5 - 25 mg/dL LAB CHEMISTRY METHOD 10/20/2024 9:42 AM [facility] Creatinine 1.12 0.70 - 1.30 mg/dL LAB CHEMISTRY METHOD 10/20/2024 9:42 AM [facility] eGFR 64 >=60 mL/min/1. 73m2 LAB CHEMISTRY METHOD 10/20/2024 9:42 AM [facility] Comment:Calculation based on the??Chronic Kidney Disease Epidemiology Collaboration (CKD-EPI) equation refit??without adjustment for race. BUN/Creatinine Ratio 14.3 LAB CHEMISTRY METHOD 10/20/2024 9:42 AM [facility] Calcium 9.2 8.5 - 10.5 mg/dL LAB CHEMISTRY METHOD 10/20/2024 9:42 AM [facility] AST (SGOT) 22 10 - 42 unit/L LAB CHEMISTRY METHOD 10/20/2024 9:42 AM [facility] ALT (SGPT) 17 10 - 60 unit/L LAB CHEMISTRY METHOD 10/20/2024 9:42 AM [facility] Alkaline Phosphatase 172(H) 42 - 121 unit/L LAB CHEMISTRY METHOD 10/20/2024 9:42 AM [facility] Total Protein 6.0 6.0 - 8.0 g/dL LAB CHEMISTRY METHOD 10/20/2024 9:42 AM [facility] Albumin 2.8(L) 3.2 - 5.0 g/dL LAB CHEMISTRY METHOD 10/20/2024 9:42 AM [facility] Total Bilirubin 0.4 0.0 - 1.4 mg/dL LAB CHEMISTRY METHOD 10/20/2024 9:42 AM [facility] Blood Venous blood specimen / Unknown Venipuncture / Unknown 10/20/2024 5:22 AM EST 10/20/2024 9:06 AM EST us Roxana Murray MD LAB BLOOD ORDERABLES Fin al Result [facility] [address] [place] [address], * (ABNORMAL) Complete blood count (10/20/2024 5:22 AM EST) WBC 9.1 4.8 - 10.8 K/mcL LAB HEMETOLOGY METHOD 10/20/2024 9:15 AM EST [facility] RBC 2.60(L) 4.50 - 5.50 M/mcL LAB HEMETOLOGY METHOD 10/20/2024 9:15 AM [facility] Hemoglobin 7.8(L) 13.5 - 17.5 g/dL LAB HEMETOLOGY METHOD 10/20/2024 9:15 AM [facility] Hematocrit 24.1(L) 42.0 - 54.0 % LAB HEMETOLOGY METHOD 10/20/2024 9:15 AM [facility] MCV 94.1 79.0 - 98.0 FL LAB HEMETOLOGY METHOD 10/20/2024 9:15 AM [facility] MCH 30.5 27.0 - 32.0 pcg LAB HEMETOLOGY METHOD 10/20/2024 9:15 AM [facility] MCHC 32.4 32.0 - 37.0 g/dL LAB HEMETOLOGY METHOD 10/20/2024 9:15 AM [facility] RDW 15.7(H) 11.0 - 15.0 % LAB HEMETOLOGY METHOD 10/20/2024 9:15 AM [facility] Platelets 393 130 - 400 K/mcL LAB HEMETOLOGY METHOD 10/20/2024 9:15 AM [facility] MPV 8.4 7.0 - 11.0 FL LAB HEMETOLOGY METHOD 10/20/2024 9:15 AM [facility] NRBC 0.0 <1.0 % LAB HEMETOLOGY METHOD 10/20/2024 9:15 AM [facility] NRBC Absolute 0.00 <0.10 K/mcL LAB HEMETOLOGY METHOD 10/20/2024 9:15 AM [facility] Blood Venous blood specimen / Unknown Venipuncture / Unknown 10/20/2024 5:22 AM EST 10/20/2024 9:06 AM EST Roxana Murray MD LAB BLOOD ORDERABLES Fin al Result [facility] [address] [place] [address], documented in this encounter Visit Diagnoses Diagnosis Essential (primary) hypertension Unspecified essential hypertension Chronic kidney disease, unspecified documented in this encounter Additional Health Concerns 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
--- OUTSIDE RECORDS SUMMARY | 2024-11-17 12:51 | XMS_ITS | Encounter Summary ---
Author Organization [facility] Address [address] [place] [address] Care Team Providers Care Manager Integration Name Role Phone Sharmila Hanson MD Primary Care Provider [phone] Encounter Details Date Type Department Care Team (Late st Contact Info) Description 10/13/2024 Lab Requisition [facility] - Main Lab 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); Essential (primary) hypertension; Urinary tract infection, site [...] 1:00 PM EDT Office Visit Adult Medicine [address] [phone] Sharmila Hanson MD [address] [place] [address] 02/23/2025 9:00 AM EDT Ancillary Procedure [address] [phone] 02/23/2025 10:30 AM EDT Office Visit [address] [phone] Irais Agarwal MD [address] [place] [address] documented as of this encounter Visit Diagnoses Diagnosis 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
--- OUTSIDE RECORDS SUMMARY | 2024-11-17 12:51 | XMS_ITS | Encounter Summary ---
Author Organization [facility] Address [address] [place] [address] Care Team Providers Care City Maintenance Manager Name Role Phone Sharmila Hanson MD Primary Care Provider [phone] Reason for Referral * Consultation (Routine) - Authorized Specialty Diagnoses / Procedures Referred By Senthil randhawa Referred To Contact Gastroenterology Diagnoses Dysphagia, unspecified type Sharmila Hanson MD [address] [place], [place] Phone: tel: fax: Gastroenterology - [address] [place] [phone] Phone: tel: fax: Referral ID Status Reason Start Date Expiration Date Visits Requested Visits Authorized [id number] Authorized Specialty Services Required 10/30/2024 10/30/2025 1 1 Reason for Visit * Reason Onset Date Comments Referral 10/30/2024 [facility] Encounter Details Date Type Department Care Team ([facility] st Contact Info) Description 10/30/2024 Telephone Adult Medicine [facility] [address], [place] [phone] Sharmila Hanson MD [address] [place] [address] Referral ([facility]) Social History Tobacco Use Types Packs/Day Years [...] documented in this encounter Progress Notes * Francheska Andres - 10/30/2024 1:42 PM EST Referral Request: What insurance does the patient have today? Payor: [employer] / Plan: [employer] / Product Type: *No Product type* / Referrals cannot be processed if the insurance is not accurate. If the insurance listed above in red is NO BILLING INFORMATION FOUND FOR THIS ENCOUTNER The patients correct insurance must be obtained and registered in [facility] or their referral can not be processed. Is this a retro request? no. If yes for what date of service do you need the retro referral? not applicable Who is calling to request this referral? The office If the caller is not the patient, what is their name? Kia Ask the patient WHO referred them to this specialty: Patient was seen by external specialist Roxana Murray who is with [facility] who has now referred them to this specialty FIRST and LAST NAME of SPECIALIST PATIENT is seeing: Kia is asking that this go under the Group. States she doesn't know who the patient will see until the day of appointment. List under [facility] NPI# [id number] What specialty is this? Gastro DIAGNOSIS Patient is being seen for (Not a body part or a procedure): dysphagia code R13.10 Have you seen this SPECIALIST for this PROBLEM/DX before? If YES, when? No Have you checked REVIEW or the APPT DESK to see if this referral has already been done or has visits left? yes Is this visit: Initial Visit Address of Specialist: [place] [address] Phone # of Specialist: [phone] Fax #: (if applicable): [phone] Does patient have an appointment scheduled?: yes Date of appointment- (including a retro-request): 10/31/24 Is this appointment related to: n/a documented in this encounter Plan of Treatment Upcoming Encounters Date Type Department Care Team (Late st Contact Info) Description 01/01/2025 1:00 PM EDT Office Visit Adult Medicine [address] [phone] Sharmila Hanson MD [address] [place] [address] 02/23/2025 9:00 AM EDT Ancillary Procedure [facility] [address] [phone] 02/23/2025 10:30 AM EDT Office Visit [facility] [address] [phone] Irais Agarwal MD [address] [address] Scheduled Referrals Name Type Priority Associated Diagnoses Order Schedule Ambulatory referral to Gastroenterology Outpatient Referral Routine Dysphagia, unspecified type Expected: 10/31/2024, Expires: 10/30/2025 documented as of this encounter Visit Diagnoses Diagnosis Dysphagia, unspecified type- Primary documented in this encounter Additional Health Concerns 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
--- OUTSIDE RECORDS SUMMARY | 2024-11-17 12:51 | XMS_ITS ---
Author Organization [facility] Address Unknown Allergies, Adverse Reactions, Alerts Substance Reaction Status Noted Date Resolved Date Lidocaine active 09/15/2024 Erythromycin active 09/15/2024 Medications Medication Dose Frequency Directions Start Date End Walter e Furosemide Oral Tablet 20 MG 20 mg Give 20 mg by mouth every 48 hours as needed for weight gain over 5lbs or edema 10/02/2024 11/06/2024 Metoprolol Succinate ER Oral Tablet Extended Release 24 Hour 50 MG 50 mg Give 50 mg by mouth in the morning related to HYPERTENSIVE HEART AND CHRONIC KIDNEY DISEASE WITH HEART FAILURE AND STAGE 1 THROUGH STAGE 4 CHRONIC KIDNEY DISEASE, OR UNSPECIFIED CHRONIC KIDNEY DISEASE (I13.0) 10/03/2024 11/06/2024 amLODIPine Besylate Oral Tablet 2.5 MG 2.5 mg Give 2.5 mg by mouth in the morning for CHF 10/03/2024 11/06/2024 Folic Acid Oral Tablet 1 MG 1 {tbl} 24 h Give 1 tablet by guille th one time a day for Animia 10/03/2024 11/06/2024 Finasteride Oral Tablet 5 MG 1 {tbl} 24 h Give 1 tablet by guille th one time a day for Enlarge prostate 10/03/2024 11/06/2024 Multivitamin Oral Tablet 1 {tbl} Give 1 tablet by guille th in the morning for supplement 10/03/2024 11/06/2024 lamoTRIgine Oral Tablet 200 MG 1 {tbl} 12 h Give 1 tablet by guille th two times a day for seizure and Bipolar disorder 10/02/2024 11/06/2024 Cetirizine HCl Oral Tablet 10 MG 1 {tbl} 24 h Give 1 tablet by guille th one time a day for fever, allergy 10/03/2024 11/06/2024 Aspirin Oral Tablet Chewable 81 mg 24 h Give 81 mg by mouth one time a day for pain, fever, headache, inflammation, risk for heart attack 10/03/2024 11/06/2024 Atorvastatin Calcium Oral Tablet 10 MG 1 {tbl} Give 1 tablet by guille th at bedtime for Cholesterol, angina, stroke 10/03/2024 11/06/2024 Alendronate Sodium Oral Tablet 70 MG 1 {tbl} Give 1 tablet by guille th ones every 7 days every Mon for osteoporosis, or bone disease 10/09/2024 11/06/2024 Albuterol Sulfate HFA Inhalation Aerosol Solution 108 (90 Base) MCG/ACT 2 2 puff inhale orally every 6 hours as needed for Wheezing or SOB 10/02/2024 11/06/2024 Tamsulosin HCl Oral Capsule 0.4 MG 1 {Capsule} 24 h Give 1 capsule by mouth one time a day for Enlarge prostate 10/03/2024 11/06/2024 Timolol Maleate Ophthalmic Solution 0.25 % 1 [drp] 24 h Instill 1 drop in right eye one time a day for Glaucoma 10/03/2024 11/06/2024 Milk of Magnesia Suspension 400 MG/5ML 30 mL Give 30 ml by mouth every 8 hours as needed for Constipation (Step 1) As needed if no bowel movement for three days. (Do not use for Hemodialysis patients). 10/02/2024 11/06/2024 Acetaminophen Tablet 325 MG 2 {tbl} Give 2 tablet by guille th every 6 hours as needed for Pain Pain Total dosage for acetaminophen and medications that contain acetaminophen should not exceed 3 grams / 24 hours. 10/02/2024 11/06/2024 Acetaminophen Tablet 325 MG 2 {tbl} Give 2 tablet by guille th every 6 hours as needed for Fever greater than 100.0F Total dosage for acetaminophen and medications that contain acetaminophen should not exceed 3 grams / 24 hours. 10/02/2024 11/06/2024 Fleet Enema Enema 7-19 GM/118ML 1 {Dose} Insert 1 dose rectal ly every 24 hours as needed for Constipation (Step 3) as needed if no bowel movement for 8 hours after bisacodyl suppository. 10/02/2024 11/06/2024 Bisacodyl Suppository 10 MG 1 Insert 1 suppository rectally every 24 hours as needed for If no bowel movement for 8 hours after Milk of Magnesia 10/02/2024 11/06/2024 Glutose 45 Gel 40 % 1 {Dose} Give 1 d ose by mouth as needed for hypoglycemic protocol Give one tube PO/SL if FSBS <50 and able to swallow PRN. Recheck FSBS 10 minutes after administration and call provider. 10/02/2024 11/06/2024 GlucaGen HypoKit Solution Reconstituted 1 MG 1 mg Inject 1 mg subcutaneously as needed for hypoglycemic protocol Special instructions: Glucagen 1 mg hypokit subcutaneous if FSBS below 60 and unable to swallow.Recheck FSBS in 10 minutes and update provider. 10/02/2024 11/06/2024 Vitamin D3 Oral Tablet 1000 24 h Give 1000 unit by mouth one time a day for Fat-soluble vitamin 10/03/2024 11/06/2024 Nystop External Powder 775025 UNIT/GM Apply to Under Right Axilla topically every day and evening shift for fungal rash 10/03/2024 11/06/2024 Ciprofloxacin HCl Oral Tablet 500 MG 1 {tbl} 12 h Give 1 tablet by guille th every 12 hours for UTI for 10 Administrations until finished TOTAL OF 10 DOSES 10/17/2024 10/22/2024 metroNIDAZOLE Oral Tablet 500 MG 1 {tbl} 8 h Give 1 tablet by guille th every 8 hours for UTI for 15 Administrations until finished FOR A TOTAL OF 15 DOSES, DO NOT USE MOUTH WASH 10/17/2024 10/22/2024 Budesonide-Formotero l Fumarate Inhalation Aerosol 160-4.5 MCG/ACT 2 12 h 2 puff inhale orally two times a day for Asthma Rinse mouth with water after use to reduce after taste and incidence of candidiasis 10/18/2024 11/06/2024 Sodium Chloride Oral Tablet 1 GM 1 {tbl} 24 h Give 1 tablet by guille th one time a day for supplement 10/21/2024 10/20/2024 Sodium Chloride Oral Tablet 1 GM 1 {tbl} 12 h Give 1 tablet by guille th two times a day for supplement 10/21/2024 11/06/2024 Cefuroxime Axetil Oral Tablet 500 MG 500 mg 12 h Give 500 mg by mouth two times a day for Urinary Infection/ Penis Infection for 7 Days 10/25/2024 11/01/2024 Cefuroxime Axetil Oral Tablet 500 MG 500 mg Give 500 mg by mouth one time only for first dose of antibiotics for urinary/penial infection for 1 Day 10/24/2024 10/25/2024 Fluconazole Oral Tablet 150 MG 150 mg Give 150 mg by mouth one time only for rule out fungal infection in penial gland for 1 Day 10/26/2024 10/27/2024 Medications Administered Medication Dose Frequency Status Start Date End Date Furosemide Oral Tablet 20 MG 20 mg 1 Metoprolol Succinate ER Oral Tablet Extended Release 24 Hour 50 MG 50 mg 11/06/2024 amLODIPine Besylate Oral Tab let 2.5 MG 2.5 mg 11/06/2024 Folic Acid Oral Tablet 1 MG 1 {tbl} 24 h Finasteride Oral Tablet 5 MG 1 {tbl} 24 h 0 11/06/2024 Multivitamin Oral Tablet 1 {tbl} 11/06 lamoTRIgine Oral Tablet 200 MG 1 {tbl} 12 h 11/06/2024 Cetirizine HCl Oral Tablet 10 MG 1 {tbl} 24 h 11/06/2024 Aspirin Oral Tablet Chewable 81 mg 24 h 0 11/06/2024 Atorvastatin Calcium Oral Ta blet 10 MG 1 {tbl} 11/06/2024 Alendronate Sodium Oral Tablet 70 MG 1 {tbl} 10/30/2024 Albuterol Sulfate HFA Inhala tion Aerosol Solution 108 (90 Base) MCG/ACT 2 10/02/2024 Tamsulosin HCl Oral Capsule 0.4 MG 1 {Capsule} 24 h 11/06/2024 Timolol Maleate Ophthalmic S olution 0.25 % 1 [drp] 24 h 11/06/2024 Milk of Magnesia Suspension 400 MG/5ML 30 mL 10/02/2024 Acetaminophen Tablet 325 MG 2 {tbl} Acetaminophen Tablet 325 MG 2 {tbl} Fleet Enema Enema 7-19 GM/118ML 1 {Dose} 10/02/2024 Bisacodyl Suppository 10 MG 1 Glutose 45 Gel 40 % 1 {Dose} 10/02/2024 GlucaGen HypoKit Solution Reconstituted 1 MG 1 mg 10/02/2024 Vitamin D3 Oral Tablet 1000 24 h 025 Nystop External Powder 87260 0 UNIT/GM 11/05/2024 Ciprofloxacin HCl Oral Tablet 500 MG 1 {tbl} 12 h 10/22/2024 metroNIDAZOLE Oral Tablet 500 MG 1 {tbl} 8 h 10/22/2024 Budesonide-Formoterol Fumara te Inhalation Aerosol 160-4.5 MCG/ACT 2 12 h 2024 Sodium Chloride Oral Tablet 1 GM 1 {tbl} 24 h 10/21/2024 Sodium Chloride Oral Tablet 1 GM 1 {tbl} 12 h 11/06/2024 Cefuroxime Axetil Oral Tablet 500 MG 500 mg 12 h 10/31/2024 Cefuroxime Axetil Oral Tablet 500 MG 500 mg 10/24/2024 Fluconazole Oral Tablet 150 MG 150 mg 10/26/2024 Problems Problem Status Start Date End Date UNSPECIFIED DEMENTIA, UNSPEC IFIED SEVERITY, WITHOUT BEHAVIORAL DISTURBANCE, PSYCHOTIC DISTURBANCE, MOOD DISTURBANCE, AND ANXIETY (Primary) (F03.90 - ICD-10-CM) ACTIVE 10/05/2024 URINARY TRACT INFECTION, SIT E NOT SPECIFIED (Primary) (N39.0 - ICD-10-CM) RESOLVED 10/02/2024 11/02/2024 URINARY TRACT INFECTION, SIT E NOT SPECIFIED (Primary) (N39.0 - ICD-10-CM) RESOLVED 09/15/2024 10/02/2024 SEPSIS DUE TO ENTEROCOCCUS (A41.81 - ICD-10-CM) RESOLV ED 09/15/2024 10/02/2024 RETENTION OF URINE, UNSPECIFIED (R33.9 - ICD-10-CM) AC TIVE 09/15/2024 CHRONIC ATRIAL FIBRILLATION, UNSPECIFIED (I48.20 - ICD-10-CM) ACTIVE 09/15/2024 BENIGN PROSTATIC HYPERPLASIA WITH LOWER URINARY TRACT SYMPTOMS (N40.1 - ICD-10-CM) ACTIVE 09/15/2024 ORTHOSTATIC HYPOTENSION (I95.1 - ICD-10-CM) ACTIVE 09/15/2024 ABSENCE EPILEPTIC SYNDROME, NOT INTRACTABLE, 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) ACTIVE 09/15/2024 PRESENCE OF UROGENITAL IMPLANTS (Z96.0 - ICD-10-CM) AC TIVE 09/15/2024 DIVERTICULITIS OF INTESTINE, PART UNSPECIFIED, WITHOUT PERFORATION OR ABSCESS WITHOUT BLEEDING (K57.92 - ICD-10-CM) ACTIVE 10/16/2024 GASTROINTESTINAL HEMORRHAGE, UNSPECIFIED (K92.2 - ICD-10-CM) ACTIVE 10/16/2024 ADJUSTMENT DISORDER, UNSPECIFIED (F43.20 - ICD-10-CM) ACTIVE 10/05/2024 WEAKNESS (R53.1 - ICD-10-CM) ACTIVE 10/02/2024 UNSTEADINESS ON FEET (R26.81 - ICD-10-CM) ACTIVE 10/02/2024 UNSPECIFIED LACK OF COORDINATION (R27.9 - ICD-10-CM) A CTIVE 10/02/2024 OTHER ABNORMALITIES OF GAIT AND MOBILITY (R26.89 - ICD-10-CM) ACTIVE 10/02/2024 MUSCLE WEAKNESS (GENERALIZED) (M62.81 - ICD-10-CM) ACT ANAMARIA 10/02/2024 DYSPHAGIA, UNSPECIFIED (R13.10 - ICD-10-CM) ACTIVE 10/02/2024 DYSPHAGIA, OROPHARYNGEAL PHASE (R13.12 - ICD-10-CM) AC TIVE 10/02/2024 ESSENTIAL (PRIMARY) HYPERTENSION (I10 - ICD-10-CM) RES OLVED 09/15/2024 09/15/2024 PULMONARY FIBROSIS, UNSPECIFIED (J84.10 - ICD-10-CM) A CTIVE 09/15/2024 UNSPECIFIED ASTHMA, UNCOMPLI CATED (J45.909 - ICD-10-CM) ACTIVE 09/15/2024 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-10-CM) ACTIVE 09/15/2024 HYPERLIPIDEMIA, UNSPECIFIED (E78.5 - ICD-10-CM) ACTIVE 09/15/2024 HYPERTENSIVE HEART AND CHRON IC KIDNEY DISEASE WITH HEART FAILURE AND STAGE 1 THROUGH STAGE 4 CHRONIC KIDNEY DISEASE, OR UNSPECIFIED CHRONIC KIDNEY DISEASE (I13.0 - ICD-10-CM) ACTIVE 09/15/2024 OBSTRUCTIVE SLEEP APNEA (KELLY LT) (PEDIATRIC) (G47.33 - ICD-10-CM) ACTIVE 09/15/2024 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) ACTIVE 09/15/2024 SEPSIS DUE TO ENTEROCOCCUS (A41.81 - ICD-10-CM) RESOLV ED 09/04/2024 11/02/2024 Encounters Encounter Performer Performer Role Encounter Diagnoses Location Date Discharge - Discharged to home or self care - Home [facility] 4 02:00 pm EST - 4 12:54 pm EST Discharge - Discharged / Transferred to another hospital - [facility] 4 02:24 pm EST - 5 10:49 am EST Discharge - Discharged to home or self care - Home [facility] 5 04:18 pm EST - 5 11:38 am EST Immunizations Vaccine Date PPSV23 07/23/2004 12:00 am EDT Influenza-High Dose(Fluzone) 06/19/2024 12:00 am EDT COVID-19, mRNA, LNP-S, PF, farzad-sucrose, 30 mcg/0.3 mL 06/19/2024 12:00 am EDT Pneumococcal conjugate PCV 13 01/15/2016 12:00 am EDT Social History Vital Signs Vital Sign Reading Time Taken weight 179.8 [lb_av] 11/06/2024 09:41 am EST weight 180.2 [lb_av] 11/04/2024 01:13 pm EST weight 181.8 [lb_av] 11/03/2024 01:51 pm EST painLevel 1 {score} 11/05/2024 11:40 pm EST painLevel 0 {score} 11/05/2024 03:56 pm EST painLevel 1 {score} 11/05/2024 01:39 pm EST painLevel 1 {score} 11/04/2024 11:12 pm EST painLevel 0 {score} 11/04/2024 03:37 pm EST painLevel 0 {score} 11/04/2024 09:20 am EST painLevel 1 {score} 11/03/2024 11:59 pm EST painLevel 0 {score} 11/03/2024 04:36 pm EST painLevel 3 {score} 11/03/2024 03:17 pm EST painLevel 0 {score} 11/02/2024 11:33 pm EST oxygenSaturation 95 % 11/05/2024 08:5 0 pm EST oxygenSaturation 94 % 11/05/2024 01:4 0 pm EST oxygenSaturation 95 % 11/05/2024 06:5 9 am EST oxygenSaturation 96 % 11/04/2024 09:5 2 am EST oxygenSaturation 95 % 11/03/2024 06:0 7 pm EST oxygenSaturation 96 % 11/03/2024 03:1 7 pm EST oxygenSaturation 95 % 11/03/2024 05:5 4 am EST oxygenSaturation 94 % 11/02/2024 11:0 3 pm EST respirations 18 /min 11/05/2024 08:50 pm EST respirations 18 /min 11/05/2024 01:40 pm EST respirations 18 /min 11/05/2024 06:59 am EST respirations 18 /min 11/04/2024 09:52 am EST respirations 18 /min 11/03/2024 06:07 pm EST respirations 18 /min 11/03/2024 03:17 pm EST respirations 18 /min 11/03/2024 05:54 am EST respirations 18 /min 11/02/2024 11:03 pm EST heartrate 73 /min 11/05/2024 01:40 pm EST heartrate 80 /min 11/04/2024 09:52 am EST heartrate 80 /min 11/03/2024 03:17 pm EST heartrate 78 /min 11/02/2024 10:42 am EST temperature 88 [degF] 11/05/2024 01:40 pm EST temperature 98 [degF] 11/04/2024 09:52 am EST temperature 98 [degF] 11/03/2024 03:17 pm EST temperature 97.9 [degF] 11/02/2024 10:42 am EST systolicValue 128 mm[Hg] 11/05/2024 01:40 pm EST diastolicValue 78 mm[Hg] 11/05/2024 01:40 pm EST systolicValue 130 mm[Hg] 11/04/2024 09:52 am EST diastolicValue 82 mm[Hg] 11/04/2024 09:52 am EST systolicValue 132 mm[Hg] 11/03/2024 03:17 pm EST diastolicValue 72 mm[Hg] 11/03/2024 03:17 pm EST systolicValue 128 mm[Hg] 11/02/2024 10:42 am EST diastolicValue 67 mm[Hg] 11/02/2024 10:42 am EST
--- OUTSIDE RECORDS SUMMARY | 2024-11-17 12:51 | XMS_ITS | Continuity of Care Document ---
Author Name [facility] Organization [facility] Care Team Providers Care Administrative Fellow Name Role Phone [facility] Unavailable Unavailable Immunizations Combined list of available immunizations from the Department of Defense and Veterans Affairs facilities. Immunization Series Date Given Administered By Site Reaction Lot Number CVX Code Drug Supervisor Accounting Clerks Status Comments Source influenza virus vaccine, whole virus 1 1995 Unknown, Provider 16 () complet ed influenza virus vaccine, whole virus [facility] typhoid vaccine, parenteral, acetone-kille d, dried ([place] ) 1 1995 Unknown, Provider 53 () complet ed typhoid vaccine, parentera l, acetone-k illed, dried ([place] ) [facility] tetanus and diphtheria toxoids, adsorbed, preservative free, for adult use (2 Lf of tetanus toxoid and 2 Lf of diphtheria toxoid) 1 1993 Unknown, Provider 09 () complet ed tetanus and diphtheri a toxoids, adsorbed, preservat nancy free, for adult use (2 Lf of tetanus toxoid and 2 Lf of diphtheri a toxoid) [facility] yellow fever vaccine 1 1993 Unknown, Provider 37 () complet ed yellow fever vaccine [facility] trivalent poliovirus vaccine, live, oral 1 1973 Unknown, Provider 02 () complet ed trivalent polioviru s vaccine, live, oral [facility] cholera vaccine, unspecified formulation 1 1973 Unknown, Provider 26 () complet ed cholera vaccine, unspecifi ed formulati on DoD Encounters Combined list of: 1) Encounters from Department of Veterans Affairs facilities going backup to the last 18 months, not all VA inpatient encounters are included; 2) Encounters from the Department of Defense facilities going backup to 280 months. Location Location Details Encounter Type Encounter Number Reason For Visit Attending Provider ADM Date DC Date Status Disposition Source [facility] Outpatient Encounter [id number] 10/10 [facility] Encounter [id number] 10/10 [facility] Encounter [id number] 11/08 [facility] Encounter [id number] 11/13 [facility] Social History Combined list of available smoking, tobacco, and other social history from Department of Defense and Veterans Affairs facilities. Social History Type Response Date Comment Sourc e This section is an empty social history section. DoD Plan of Care List of future care activities from Department of Veterans Affairs facilities. Additional future care activities may be listed in the Assessment and Plan section. Date/Time Care Activity Care Activity Detail Facili ty 12/18/2024 AMBULATORY - MEDICINE AM[facility]ULATORY - [facility]
--- OUTSIDE RECORDS SUMMARY | 2024-11-17 12:51 | XMS_ITS | Encounter Summary ---
Author Organization [facility] Address [address] [place] [address] Care Team Providers Care Log Washer Name Role Phone Sharmila Hanson MD Primary Care Provider Encounter Details Date Type Department Care Team (Late st Contact Info) Description 10/21/2024 Lab Requisition [facility] - Main Lab [address] [place] [address] Roxana Murray MD [address] [phone] Urinary tract infection, site not specified; Essential [...] Date Author No 09/10/2024 12:34 PM Dorene oTbin RN documented in this encounter Plan of Treatment Upcoming Encounters Date Type Department Care Team (Late st Contact Info) Description 01/01/2025 1:00 PM EDT Office Visit Adult Medicine [address] [phone] Sharmila Hanson MD [address] [place] [phone] 02/23/2025 9:00 AM EDT Ancillary Procedure [address] [phone] 02/23/2025 10:30 AM EDT Office Visit [address] [phone] Irais Agarwal MD [address] [place] [phone] documented as of this encounter Procedures Procedure Name Priority Date/Time Associated Diagnosis Comments COMPLETE BLOOD COUNT Routine 10/23/2024 9:13 AM EST Urinary tract infection, site not specified Essential (primary) hypertension COMPREHENSIVE METABOLIC PANEL Routine 10/23/2024 9:13 AM EST Urinary tract infection, site not specified Essential (primary) hypertension documented in this encounter Results * (ABNORMAL) Comprehensive metabolic panel (10/23/2024 9:13 AM EST) Sodium 130(L) 133 - 145 mmol/L LAB CHEMISTRY METHOD 10/23/2024 2:15 PM [facility] Potassium 4.4 3.5 - 5.5 mmol/L LAB CHEMISTRY METHOD 10/23/2024 2:15 PM [facility] Chloride 96 96 - 110 mmol/L LAB CHEMISTRY METHOD 10/23/2024 2:15 PM [facility] CO2 27 21 - 32 mmol/L LAB CHEMISTRY METHOD 10/23/2024 2:15 PM [facility] Anion Gap 7 3 - 11 LAB CHEMISTRY METHOD 10/23/2024 2:15 PM [facility] Glucose 134(H) 70 - 100 mg/dL LAB CHEMISTRY METHOD 10/23/2024 2:15 PM [facility] BUN 17 5 - 25 mg/dL LAB CHEMISTRY METHOD 10/23/2024 2:15 PM [facility] Creatinine 1.20 0.70 - 1.30 mg/dL LAB CHEMISTRY METHOD 10/23/2024 2:15 PM [facility] eGFR 59(L) >=60 mL/min/1. 73m2 LAB CHEMISTRY METHOD 10/23/2024 2:15 PM [facility] Comment:Calculation based on the??Chronic Kidney Disease Epidemiology Collaboration (CKD-EPI) equation refit??without adjustment for race. BUN/Creatinine Ratio 14.2 LAB CHEMISTRY METHOD 10/23/2024 2:15 PM [facility] Calcium 9.3 8.5 - 10.5 mg/dL LAB CHEMISTRY METHOD 10/23/2024 2:15 PM [facility] AST (SGOT) 22 10 - 42 unit/L LAB CHEMISTRY METHOD 10/23/2024 2:15 PM [facility] ALT (SGPT) 14 10 - 60 unit/L LAB CHEMISTRY METHOD 10/23/2024 2:15 PM [facility] Alkaline Phosphatase 175(H) 42 - 121 unit/L LAB CHEMISTRY METHOD 10/23/2024 2:15 PM [facility] Total Protein 6.6 6.0 - 8.0 g/dL LAB CHEMISTRY METHOD 10/23/2024 2:15 PM [facility] Albumin 3.0(L) 3.2 - 5.0 g/dL LAB CHEMISTRY METHOD 10/23/2024 2:15 PM [facility] Total Bilirubin 0.6 0.0 - 1.4 mg/dL LAB CHEMISTRY METHOD 10/23/2024 2:15 PM [facility] Blood Venous blood specimen / Unknown Venipuncture / Unknown 10/23/2024 9:13 AM EST 10/23/2024 12:28 PM EST us Roxana Murray MD LAB BLOOD ORDERABLES Fin al Result [facility] [address] [place] [address], * (ABNORMAL) Complete blood count (10/23/2024 9:13 AM EST) WBC 10.4 4.8 - 10.8 K/mcL LAB HEMETOLOGY METHOD 10/23/2024 1:27 PM [facility] RBC 2.80(L) 4.50 - 5.50 M/mcL LAB HEMETOLOGY METHOD 10/23/2024 1:27 PM [facility] Hemoglobin 8.6(L) 13.5 - 17.5 g/dL LAB HEMETOLOGY METHOD 10/23/2024 1:27 PM [facility] Hematocrit 27.2(L) 42.0 - 54.0 % LAB HEMETOLOGY METHOD 10/23/2024 1:27 PM [facility] MCV 96.8 79.0 - 98.0 FL LAB HEMETOLOGY METHOD 10/23/2024 1:27 PM [facility] MCH 30.6 27.0 - 32.0 pcg LAB HEMETOLOGY METHOD 10/23/2024 1:27 PM [facility] MCHC 31.6(L) 32.0 - 37.0 g/dL LAB HEMETOLOGY METHOD 10/23/2024 1:27 PM [facility] RDW 15.7(H) 11.0 - 15.0 % LAB HEMETOLOGY METHOD 10/23/2024 1:27 PM [facility] Platelets 449(H) 130 - 400 K/mcL LAB HEMETOLOGY METHOD 10/23/2024 1:27 PM [facility] MPV 7.9 7.0 - 11.0 FL LAB HEMETOLOGY METHOD 10/23/2024 1:27 PM [facility] NRBC 0.0 <1.0 % LAB HEMETOLOGY METHOD 10/23/2024 1:27 PM [facility] NRBC Absolute 0.00 <0.10 K/mcL LAB HEMETOLOGY METHOD 10/23/2024 1:27 PM [facility] Blood Venous blood specimen / Unknown Venipuncture / Unknown 10/23/2024 9:13 AM EST 10/23/2024 12:28 PM EST us Roxana Murray MD LAB BLOOD ORDERABLES Fin al [facility] [address] [place] [address], documented in this encounter Visit Diagnoses Diagnosis Urinary tract infection, site not specified Essential (primary) hypertension Unspecified essential hypertension documented in this encounter 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
--- OUTSIDE RECORDS SUMMARY | 2024-11-17 12:52 | XMS_ITS | Clinical Summary ---
Author Organization [address] [place] [address] Address [address] [place] [address] Phone Care Team Providers Care Banking Attorney Name Role Phone Sharmila Hanson MD Primary Care Provider [phone] Allergies Active Allergy Reactions Criticality Noted Date Comments Erythromycin 01/24/2018 Lidocaine Rash High 01/26/2024 Medications aspirin 81 mg chewable tablet Take 1 Tablet by mouth daily. Active FREESTYLE LANCETS MISC Use to test blood suagr twice daily 3 Active multivitamin (MULTIPLE VITAMINS ORAL) 1 Q.D. Activ e alendronate (FOSAMAX) 70 mg tablet Take 1 Tablet by mouth every 7 days. 4 Active atorvastatin (LIPITOR) 10 mg tablet Take 1 Tablet by mouth at bedtime. 4 Active cetirizine (ZyrTEC) 10 mg tablet Take 1 Tablet by mouth daily. 4 Active cholecalciferol (VITAMIN D-3) 25 mcg (1,000 unit) capsule Take 2 Caps by mouth every morning. Active lamoTRIgine (LaMICtal) 200 mg tablet Take 200 mg by mouth 2 times daily. 9 Active timolol (TIMOPTIC) 0.25 % ophthalmic solution Place 1 Drop into the right eye daily. 0 Active budesonide-formo teroL (SYMBICORT) 160-4.5 mcg/actuation inhalerIndicatio ns:Moderate persistent asthma, unspecified whether complicated Inhale 2 puffs by mouth 2 (two) times a day. Rinse mouth with water after use to reduce aftertaste and incidence of candidiasis. Do not swallow. 1 each 4 08/24/20 25 Active metoprolol succinate (TOPROL-XL) 50 mg 24 hr tablet Take 1 tablet (50 mg total) by mouth 1 (one) time each day. Do not crush or chew. 90 each 4 Active tamsulosin (FLOMAX) 0.4 mg 24 hr capsule Take 1 capsule (0.4 mg total) by mouth 1 (one) time each day. Capsules should be taken 30 minutes following the same meal each day. 90 each 4 Active folic acid (FOLVITE) 1 mg tablet Take 1 tablet (1 mg total) by mouth 1 (one) time each day. 90 each 4 Active finasteride (PROSCAR) 5 mg tablet Take 1 tablet (5 mg total) by mouth 1 (one) time each day. Do not crush, chew, or split. 90 each 4 Active albuterol HFA (PROAIR HFA ; PROVENTIL HFA ; VENTOLIN HFA) 90 mcg/actuation inhalerIndicatio ns:Moderate persistent asthma, unspecified whether complicated Inhale 2 puffs by mouth every 6 (six) hours if needed for wheezing or shortness of breath. 3 each 3 4 08/29/20 25 Active furosemide (LASIX) 40 mg tablet Take 0.5 tablets (20 mg total) by mouth every other day if needed (weight gain over 5 lbs or edema). 4 Active amLODIPine (NORVASC) 2.5 mg tablet Take 1 tablet (2.5 mg total) by mouth 1 (one) time each day. 30 each 11 4 10/03/20 25 Active ciprofloxacin (CIPRO) 500 mg tablet Take 1 tablet (500 mg total) by mouth every 12 (twelve) hours for 10 doses. 5 10/21/19 25 metroNIDAZOLE (FLAGYL) 500 mg tablet Take 1 tablet (500 mg total) by mouth every 8 (eight) hours for 15 doses. Do not use mouth wash or consume alcohol until 48 hours after last dose 5 10/21/19 25 Active Problems Problem Noted Date Diagnosed Date Diverticulitis 10/16/2024 BPH with obstruction/lower urinary tract symptom s 07/05/2024 Gross hematuria 07/05/2024 Urinary retention 04/20/2024 Chronic heart failure with p reserved ejection fraction (HFpEF) 02/10/2024 SARMAD (obstructive sleep apnea) 02/10/2024 Pulmonary HTN 02/10/2024 Anemia 02/01/2024 DJD (degenerative joint disease), cervical 01/26 Atrial fibrillation 07/20/2023 Overview (11/11/2024): 12/25 watchman device placed v Vasovagal syncope 12/10/2022 Overview (11/11/2024): L Murmur, cardiac 08/12/2021 Osteopenia 06/28/2020 Glaucoma, right eye 02/07/2020 Onychomycosis 05/24/2019 Microalbuminuria 04/14/2019 Diabetes mellitus type 2 with neurological manif estations 04/10/2019 DM (diabetes mellitus), type 2 with peripheral vascular complications 04/10/2019 Pulmonary fibrosis 07/01/2018 Overview (11/11/2024): CKD (chronic kidney disease) stage 3, GFR 30-59 ml/min 06/09/2018 Gait instability 06/09/2018 Overview (07/05/2024): Dr. Branch - ?early polyneuropathy from Dilantin Hyperparathyroidism 02/02/2018 Hypertension 09/30/2017 Overview (07/05/2024): Last Assessment & Plan: The patient's blood pressure is recently well controlled. He has not had any syncopal episodes. His fall is also mechanical in etiology. See medication adjustments under atrial fibrillation. Fracture, thoracic vertebra 07/08/2017 Overview (07/05/2024): C7, T8, T9, T2, T3 07/20 Rib fracture 07/08/2017 Overview (07/05/2024): 8 and 9 right, flail rib 11/21 fell, 8, 9, 10 left rib fx Lung nodule 11/25/2016 Overview (07/05/2024): 5 mm right basilar 11/20 Tubular adenoma 12/07/2012 Overview (07/05/2024): 02/08, 04/15 Hypothyroid 06/10/2011 Carpal tunnel syndrome 05/23/2011 Overview (07/05/2024): Right, moderate 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 Branch - last seizure 2006 Hyperlipidemia 11/16/2005 Overview (11/11/2024): Spondylolisthesis at L5-S1 level 11/16/2005 Resolved Problems Problem Noted Date Diagnosed Date Resolved Date Hematochezia 10/11/2024 10/16/2024 Sepsis 09/27/2024 10/02/2024 Acute cystitis without hematuria 09/10/2024 09/26/2024 Encounters Date Type Department Care Team Description 11/17/2024 Nurse Triage Adult Medicine [address] [phone] Sharmila Hanson MD urine blockage 11/12/2024 Lab Requisition [facility] [address] [place] [phone] Roxana Murray MD Essential (primary) hypertension; Urinary tract infection, site not specified 11/07/[address] [phone] Sharmila Hanson MD VNA 11/07/2024 Telephone [facility] - [address] [place] [address] Francheska Keys PA [facility] REFILL (REQUESTING AMLODIPINE ) 11/03/2024 Lab Requisition [facility] [address] [place] [phone] Roxana Murray MD Urinary tract infection, site not specified; Essential (primary) hypertension 10/30/[address] [phone] Sharmila Hanson MD Referral ([facility]) 10/28/2024 Lab Requisition [facility] [address] [place] [phone] Roxana Murray MD Urinary tract infection, site not specified; Essential (primary) hypertension 10/27/[address] [phone] Sharmila Hanson MD 10/21/2024 Lab Requisition [facility] [address] [place] [phone] Roxana Murray MD Urinary tract infection, site not specified; Essential (primary) hypertension 10/20/2024 Lab Requisition [facility] [address] [place] [phone] Roxana Murray MD Essential (primary) hypertension; Chronic kidney disease, unspecified 10/17/2024 Lab Requisition [facility] [address] [place] [address] Roxana Murray MD Urinary tract infection, site not specified 10/16/2024 Telephone Adult [address] [phone] Alexia Ivan [place] faxed order ([facility] D/C Summary ) 10/13/2024 Lab Requisition [facility] [address] [place] [phone] Roxana Murray MD Diabetes mellitus due to underlying condition with diabetic chronic kidney disease (CMS/HCC); Essential (primary) hypertension; Urinary tract infection, site not specified 10/11/2024 11:07 AM EST - 10/16/2024 3:00 PM EST Hospital Encounter [facility] [address] [place] [phone] Hugh Stubbs MD Bukalo, Nermina, MD Seralathan, Manikandan, MD Bell, Alistair A, MD Hematochezia (Primary Dx); Gastrointestinal hemorrhage, unspecified gastrointestinal hemorrhage type; Diverticulitis Discharge Disposition: Intermediate Facility 10/10/2024 Billing Patient Not Present [address] [phone] Sharmila Hanson MD Hypertensive heart and chronic kidney disease with heart failure and stage 1 through stage 4 chronic kidney disease, or chronic kidney disease (CMS/HCC) (Primary Dx); Type 2 diabetes mellitus with diabetic chronic kidney disease, unspecified CKD stage, unspecified whether extermination inspector insulin use (CMS/HCC); Chronic kidney disease, stage 3a (CMS/HCC); Pulmonary fibrosis, unspecified (CMS/HCC); Benign prostatic hyperplasia with lower urinary tract symptoms, symptom details unspecified; Other retention of urine; Diverticulosis large intestine w/o perforation or abscess w/bleeding; Repeated falls; Paroxysmal atrial fibrillation (CMS/HCC); Type 2 diabetes mellitus with diabetic peripheral angiopathy without gangrene, unspecified whether extermination inspector insulin use ([facility]); Unspecified fracture of shaft of right fibula, subsequent encounter for closed fracture with routine healing; Hypotension, unspecified hypotension type; Pulmonary hypertension, unspecified ([facility]); Spinal stenosis, lumbar region, without neurogenic claudication; Spondylosis without myelopathy or radiculopathy, cervical region; Dysphagia, oropharyngeal phase; Obstructive sleep apnea (adult) (pediatric); Unilateral primary osteoarthritis, left hip; Primary osteoarthritis of right shoulder; Primary osteoarthritis of left shoulder; Nonintractable epilepsy without status epilepticus, unspecified epilepsy type ([facility]); Anemia in chronic kidney disease, unspecified CKD stage; Unspecified glaucoma(365.9); Hypothyroidism, unspecified type; Hyperparathyroidism, unspecified ([facility]); Hyperlipidemia, unspecified hyperlipidemia type; Migraine without status migrainosus, not intractable, unspecified migraine type; Other specified disorders of bone density and structure, unspecified site; Atherosclerosis of aorta ([facility]); Gastroesophageal reflux disease without esophagitis; Solitary pulmonary nodule; termite inspector (current) use of aspirin; Presence of right artificial hip joint; Personal history of urinary (tract) infections; Personal history of other diseases of the digestive system; Presence of other cardiac implants and grafts; Personal history of other malignant neoplasm of skin; Personal history of colon polyps, unspecified; History of falling 10/06/2024 Lab Requisition [facility] [address] [facility] [email or web address] [phone] Roxana Murray MD Diabetes mellitus due to underlying condition with diabetic chronic kidney disease ([facility]); Essential (primary) hypertension; Urinary tract infection, site not specified 10/03/2024 Lab Requisition [facility] [address] [facility] [email or web address] [phone] Roxana Murray MD Heart failure, unspecified ([facility]); Type 2 diabetes mellitus with unspecified complications ([facility]); Unspecified systolic (congestive) heart failure ([facility]) 10/02/[address] [phone] Alexia Ivan [place] faxed order ([facility]/PT ) 09/28/2024 Telephone Adult [address] [phone] Heather Lara RN 09/27/2024 6:27 PM EST - 10/02/2024 1:00 PM EST Hospital Encounter [facility] [address] [place] [phone] Eldon Lyle DO Japaridze, Anna, MD Zipagan, James T, MD Urinary tract infection associated with catheterization of urinary tract, unspecified indwelling urinary catheter type, subsequent encounter (Primary Dx); MELODY (acute kidney injury) ([facility]); Hypomagnesemia Discharge Disposition: Intermediate Facility 09/26/2024 11:45 AM EST Office Visit Adult [address] [phone] Sharmila Hanson MD Dysuria (Primary Dx); Acute UTI; Orthostatic hypotension; Longstanding persistent atrial fibrillation ([facility]); Chronic heart failure with preserved ejection fraction (HFpEF) ([facility]); Stage 3 chronic kidney disease, unspecified whether stage 3a or 3b CKD ([facility]/HCC); Type 2 diabetes mellitus with stage 3 chronic kidney disease, without long-term current use of insulin, unspecified whether stage 3a or 3b CKD ([facility]); Urinary retention 09/26/2024 Telephone Adult Medicine [address] [phone] Sharmila Hanson MD UTI 09/25/2024 Telephone Adult Medicine [address] [phone] Sharmila Hanson MD Hospital Follow-up 09/18/2024 Lab Requisition [facility] [address] [facility] [employer] [place] [phone] Roxana Murray MD Urinary tract infection, site not specified; Type 2 diabetes mellitus without complications ([facility]/HCC); Unspecified atrial fibrillation (CMS/HCC) 09/10/2024 11:51 AM EST - 09/15/2024 2:00 PM EST Hospital Encounter [facility] [address] [place] [phone] Liane Edgar DO Bukalo, Nermina, MD Nasser, Nada S, MD Acute cystitis without hematuria (Primary Dx); Orthostatic hypotension Discharge Disposition: Intermediate Facility 09/05/2024 6:47 PM EST - 09/05/2024 10:33 PM EST Emergency [facility] [address] [place] [phone] Weakness (Primary Dx) Discharge Disposition: Home or Self Care 09/05/2024 Telephone Adult Medicine [address] [phone] Sharmila Hanson MD 08/29/2024 10:30 AM EST Office Visit Adult Medicine [address] [phone] Sharmila Hanson MD Recurrent UTI (Primary Dx); Moderate persistent asthma, unspecified whether complicated; Primary hypertension; Hypothyroidism due to acquired atrophy of thyroid; Stage 3 chronic kidney disease, unspecified whether stage 3a or 3b CKD (CMS/HCC); Longstanding persistent atrial fibrillation (CMS/HCC); Nonintractable epilepsy without status epilepticus, unspecified epilepsy type (CMS/HCC); Type 2 diabetes mellitus with stage 3 chronic kidney disease, without long-term current use of insulin, unspecified whether stage 3a or 3b CKD (CMS/HCC) 08/27/2024 Telephone Adult Medicine [address] [phone] Naomi Subramanian [place] [facility] ORDER ([facility]RETT[facility] # [id number] ,[phone]/FAX # [phone]) 08/24/2024 1:15 PM EST [facility] [address] [facility] [address] [place] [phone] Irais Agarwal MD Moderate persistent asthma, unspecified whether complicated (Primary Dx); ILD (interstitial lung disease) (CMS/HCC); SARMAD (obstructive sleep apnea) from Last 3 Months Immunizations Name Administration Dates Next Due COVID-19 (Moderna/Spikevax) 12yo and older 06/29/2023 Cholera Vaccine, Unspecified Formulation 10/12/1973 Influenza Quadravalent, 0.5m l (Fluad) 65yo and older 08/21/2021 Influenza Quadravalent, 0.5m l (Fluzone High-dose) 65yo and older 07/30/2020 Influenza trivalent, 0.5mL ( Fluad) 65yo and older 06/19/2024,06/09/2019 Influenza trivalent, 0.5mL ( Fluzone High-dose) 65yo and older 06/29/2023,07/06/2022,08/21/2021,07/30,07/04/2020,07/28/2018,08/30/2017 Influenza trivalent, with pr eservative (Fluzone; Afluria) 6mo and older 06/09/2019,07/23/2016,07/15/2015,08/14,07/03/2013,06/08/2012,06/10/2011 ,2010,09/10/2009,07/06/2008,07/04,09/05/2006,07/14/2005 Influenza, Unspecified 08/21/2021,08/04/2018, OPV 03/04/1974 Pneumococcal conjugate 13 va lent (Prevnar 13, PCV13) 2mo and older 01/15/2016 Pneumococcal polysaccharide 23 valent (Pneumovax 23) 2yo and older 07/23/2004 RSV, bivalent, protein subun it RSVpreF, 0.5mL, Preservative Free (ABRYSVO) 60yo and older or 32 through 36 wks of 06/19/2024,10/05/2023 RSV, bivalent, protein subun it RSVpreF, 0.5mL, Preservative Free (Arexvy) 60yo and older 10/05/2023 Td Tetanus diptheria (Tdvax) 7yo and older 07/15/2015,08/23/2004,01/02/1994 Td, Unspecified 08/23/2004 Tdap Tetanus diptheria acell ular pertussis (Boostrix; Adacel) 7yo and older 10/24/2023,08/23/2004 Typhoid Vaccine, Parental, Acetone-Killed, Dried ([employer]) 04/03/1996 Yellow Fever (YF-VAX) 9mo and older 12/02/1993 Zoster Live 06/08/2012 Surgical History Surgery Date Site/Laterality Comments HIP ARTHROPLASTY 11/14 right COLONOSCOPY 03/01/08 Up to cecum, good preparation, mild diverticulosis, cecum poly:TA, Rectum polyp:TVA COLONOSCOPY W/ POLYPECTOMY 04/10/13 diminutive adenoma and tics; would not repeat Medical History Medical History Date Comments Acquired spondylolisthesis Erectile dysfunction 08/10/2007 Hypercalcemia 08/13/2010 BPH (benign prostatic hypertrophy) 12/17/2010 Carpal tunnel syndrome 05/23/2011 Ulnar neuropathy 05/23/2011 Tubular adenoma 12/07/2012 Basal cell carcinoma of skin 07/17/2015 Lung nodule 11/25/2016 5 mm right basil ar 11/20 Rib fracture 07/08/2017 : 8 and 9 right, flail rib Fracture, thoracic vertebra ([facility]) 07/08/2017 C7, T8, T9, T2, T3 07/20 DM (diabetes mellitus), type 2 with renal complications ([facility]) 08/13/2010 DM (diabetes mellitus), type 2 with peripheral vascular complications ([facility]) 04/10/2019 Diabetes mellitus type 2 wit h neurological manifestations ([facility]) 04/10/2019 Proteinuria 04/14/2019 Onychomycosis 05/24/2019 Atrial fibrillation ([facility]) 07/20/2023 SARMAD (obstructive sleep apnea) 02/10/2024 Urinary retention 04/20/2024 Family History Medical History Relation Name Comments Other: lung problems Father 70 Diabetes Mother of complic ations of diabetes, pacemaker Relation Name Status Comments Father Mother Social History Tobacco Use Types Packs/Day Years Used Date Smoking Tobacco: Never Smokeless Tobacco: Never Tobacco Cessation:Counseling Given: Not Answered Alcohol Use Standard Drinks/Week Comments Not Currently [...] Orientation Straight 09/27/2024 6: 59 PM EST Obstetrics History Last Filed Vital Signs Vital Sign Reading Time Taken Comments Blood Pressure 116/68 10/16/2024 8:00 AM EST Pulse 92 10/16/2024 8:49 AM EST Temperature 36.2 ??C (97.2 ??F) 10/16/2024 8:00 AM ES T Respiratory Rate 17 10/16/2024 8:49 AM EST Oxygen Saturation 96% 10/16/2024 8:49 AM EST Inhaled Oxygen Concentration - - Weight 83.9 kg (185 lb) 10/11/2024 11:17 AM EST Height 177.8 cm (5' 10 ) 10/11/2024 11:17 AM EST Body Mass Index 26.54 10/11/2024 11:17 AM EST Plan of Treatment Upcoming Encounters Date Type Department Care Team (Late st Contact Info) Description 01/01/2025 1:00 PM EDT Office Visit Adult Medicine [facility] [address] [place] [phone] Sharmila Hanson MD [address] [place] [phone] 02/23/2025 9:00 AM EDT Ancillary Procedure [address] [phone] 02/23/2025 10:30 AM EDT Office Visit [address] [phone] Irias Agarwal MD [address] [address] Health Maintenance Due Date Last Done Comments Diabetes: Annual Foot Exam 1945 IPV Vaccines (2 of 3 - Adult catch-up series) 04/01/1974 03/04/1974 Zoster Vaccines (2 of 3) 08/03/2012 06/08/2012 Depression Screening 09/12/2022 Social Influencers of Health Screening 09/12/2022 Diabetes: Annual Retina Eye Exam 10/11/2024 10/11/2023 Diabetes: Blood Sugar Control Test (HGBA1C) 04/02/2025 10/03/2024, 09/18/2024, 08/29/2024, Additional history exists Falls Risk Assessment 10/16/2025 10/16/2024 Hypertension/CHF/CAD Annual BMP Blood Test 11/06/2025 11/06/2024, 10/30/2024, 10/23/2024, Additional history exists Cholesterol Screening (Lipid Panel) 11/23/2028 11/23/2023 DTaP,Tdap,and Td Vaccines (7 - Td or Tdap) 10/24/2033 10/24/2023, 07/15/2015, 08/23/2004, Additional history exists Pneumococcal Vaccine: 50+ Years Completed 01/15/2016, 07/23/2004 COVID-19 Vaccine Completed 06/19/2024, 07/2024, 06/29/2023, Additional history exists Influenza Vaccine Completed 06/19/2024, , 07/06/2022, Additional history exists RSV Immunization Patients 60+ Years Old Completed 06/19/2024, 10/05/2023, 10/05/2023 HIB Vaccines Aged Out No longer eligi ble based on patient's age to complete this topic HPV Vaccines Aged Out No longer eligi ble based on patient's age to complete this topic Hepatitis A Vaccines Aged Out No long er eligible based on patient's age to complete this topic Hepatitis B Vaccines Aged Out No long er eligible based on patient's age to complete this topic MMR Vaccines Aged Out No longer eligi ble based on patient's age to complete this topic Meningococcal ACWY Vaccine Aged Out N o longer eligible based on patient's age to complete this topic Meningococcal B Vacine Aged Out No lo nger eligible based on patient's age to complete this topic RSV Immunization Patients Under 20 months Aged Out No longer eligible based on patient's age to complete this topic Varicella Vaccines Aged Out No longer eligible based on patient's age to complete this topic Procedures Procedure Name Priority Date/Time Associated Diagnosis Comments COMPREHENSIVE METABOLIC PANEL Routine 11/06/2024 8:31 AM EST Urinary tract infection, site not specified Essential (primary) hypertension COMPLETE BLOOD COUNT Routine 11/06/2024 8:31 AM EST Urinary tract infection, site not specified Essential (primary) hypertension COMPREHENSIVE METABOLIC PANEL Routine 10/30/2024 9:50 AM EST Urinary tract infection, site not specified Essential (primary) hypertension COMPLETE BLOOD COUNT Routine 10/30/2024 9:50 AM EST Urinary tract infection, site not specified Essential (primary) hypertension COMPREHENSIVE METABOLIC PANEL Routine 10/23/2024 9:13 AM EST Urinary tract infection, site not specified Essential (primary) hypertension COMPLETE BLOOD COUNT Routine 10/23/2024 9:13 AM EST Urinary tract infection, site not specified Essential (primary) hypertension COMPREHENSIVE METABOLIC PANEL Routine 10/20/2024 5:22 AM EST Essential (primary) hypertension Chronic kidney disease, unspecified COMPLETE BLOOD COUNT Routine 10/20/2024 5:22 AM EST Essential (primary) hypertension Chronic kidney disease, unspecified COMPREHENSIVE METABOLIC PANEL Routine 10/17/2024 5:27 AM EST Urinary tract infection, site not specified COMPLETE BLOOD COUNT Routine 10/17/2024 5:27 AM EST Urinary tract infection, site not specified SST - GOLD Routine 10/16/2024 7:13 AM EST EXTRA TUBES Routine 10/16/2024 7:13 AM EST HEMOGLOBIN AND HEMATOCRIT Routine 10/16/2024 7:13 AM EST SST - GOLD Routine 10/15/2024 7:01 AM EST EXTRA TUBES Routine 10/15/2024 7:01 AM EST HEMOGLOBIN AND HEMATOCRIT Routine 10/15/2024 7:01 AM EST CPAP NIV Routine 10/14/2024 10:00 PM EST ECG 12-LEAD Routine 10/14/2024 1:15 PM EST CPAP NIV Routine 10/13/2024 10:00 PM EST COMPLETE BLOOD COUNT Routine 10/13/2024 8:59 AM EST SST - GOLD Routine 10/13/2024 8:57 AM EST EXTRA TUBES Routine 10/13/2024 8:57 AM EST CPAP NIV Routine 10/12/2024 10:00 PM EST CBC WITH AUTO DIFFERENTIAL Routine 10/12/2024 6:17 AM EST SOLUBLE TRANSFERRIN RECEPTOR Routine 10/12/2024 6:17 AM EST VITAMIN B12 Routine 10/12/2024 6:17 AM EST IRON AND TIBC Routine 10/12/2024 6:17 AM EST FOLATE Routine 10/12/2024 6:17 AM EST FERRITIN Routine 10/12/2024 6:17 AM EST BASIC METABOLIC PANEL Routine 10/12/2024 6:17 AM EST CBC AND DIFFERENTIAL Routine 10/12/2024 6:17 AM EST CPAP NIV Routine 10/11/2024 7:47 PM EST PREPARE RBC STAT 10/11/2024 3:10 PM EST XR CHEST 2 VIEWS STAT 10/11/2024 2:[address] ANGIO ABDOMEN PELVIS WO AND/OR W CONTRAST STAT 10/11/2024 2:03 PM EST Hematochezia LACTATE STAT 10/11/2024 1:38 PM EST RESPIRATORY VIRUS PANEL MOLECULAR STUDY STAT 10/11/2024 1:37 PM EST PROTHROMBIN TIME WITH INR STAT 10/11/2024 11:49 AM EST CBC WITH AUTO DIFFERENTIAL STAT 10/11/2024 11:45 AM EST TYPE AND SCREEN STAT 10/11/2024 11:45 AM EST COMPREHENSIVE METABOLIC PANEL STAT 10/11/2024 11:45 AM EST CBC AND DIFFERENTIAL STAT 10/11/2024 11:45 AM EST COMPREHENSIVE METABOLIC PANEL Routine 10/09/2024 7:14 AM EST Diabetes mellitus due to underlying condition with diabetic chronic kidney disease (CMS/HCC) Essential (primary) hypertension Urinary tract infection, site not specified COMPLETE BLOOD COUNT Routine 10/09/2024 7:14 AM EST Diabetes mellitus due to underlying condition with diabetic chronic kidney disease (CMS/HCC) Essential (primary) hypertension Urinary tract infection, site not specified HEMOGLOBIN A1C Routine 10/03/2024 5:30 AM EST Heart failure, unspecified (CMS/HCC) 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) Unspecified systolic (congestive) heart failure (CMS/HCC) COMPREHENSIVE METABOLIC PANEL Routine 10/03/2024 5:30 AM EST Heart failure, unspecified (CMS/HCC) 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) Unspecified systolic (congestive) heart failure (CMS/HCC) COMPLETE BLOOD COUNT Routine 10/03/2024 5:30 AM EST Heart failure, unspecified (CMS/HCC) 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) Unspecified systolic (congestive) heart failure (CMS/HCC) CBC WITH AUTO DIFFERENTIAL Routine 10/02/2024 5:42 AM EST MAGNESIUM Routine 10/02/2024 5:42 AM EST CBC AND DIFFERENTIAL Routine 10/02/2024 5:42 AM EST BASIC METABOLIC PANEL Routine 10/02/2024 5:42 AM EST COMPLETE BLOOD COUNT Timed 10/02/2024 5:42 AM EST POCT GLUCOSE BLOOD Routine 10/01/2024 8: 44 AM EST CBC WITH AUTO DIFFERENTIAL Routine 10/01/2024 5:47 AM EST MAGNESIUM Routine 10/01/2024 5:47 AM EST CBC AND DIFFERENTIAL Routine 10/01/2024 5:47 AM EST BASIC METABOLIC PANEL Routine 10/01/2024 5:47 AM EST COMPLETE BLOOD COUNT Timed 10/01/2024 5:47 AM EST POCT GLUCOSE BLOOD Routine 09/30/2024 8: 14 PM EST POCT GLUCOSE BLOOD Routine 09/30/2024 4: 15 PM EST POCT GLUCOSE BLOOD Routine 09/30/2024 11 :09 AM EST POCT GLUCOSE BLOOD Routine 09/30/2024 8: 12 AM EST SST - GOLD Routine 09/30/2024 5:45 AM EST EXTRA TUBES Routine 09/30/2024 5:45 AM EST COMPLETE BLOOD COUNT Timed 09/30/2024 5:45 AM EST CBC WITH AUTO DIFFERENTIAL Routine 09/29/2024 5:34 AM EST MAGNESIUM Routine 09/29/2024 5:34 AM EST BASIC METABOLIC PANEL Routine 09/29/2024 5:34 AM EST CBC AND DIFFERENTIAL Routine 09/29/2024 5:34 AM EST COMPLETE BLOOD COUNT Timed 09/29/2024 5:34 AM EST CULTURE BLOOD STAT 09/28/2024 9:40 AM EST CULTURE BLOOD STAT 09/28/2024 9:40 AM EST MAGNESIUM Routine 09/28/2024 5:46 AM EST HEPATIC FUNCTION PANEL Routine 5:46 AM EST BASIC METABOLIC PANEL Timed 09/28/2024 5:46 AM EST LACTATE Routine 09/28/2024 5:46 AM EST COMPLETE BLOOD COUNT Timed 09/28/2024 5:30 AM EST [facility] URINE CULTURE TUBE STAT 09/27/20 8:55 PM EST URINALYSIS WITH REFLEX MICROSCOPIC AND CULTURE STAT 09/27/2024 8:55 PM EST URINALYSIS WITH REFLEX MICROSCOPIC AND CULTURE STAT 09/27/2024 8:55 PM EST CULTURE URINE STAT 09/27/2024 8:[address] CHEST WO CONTRAST STAT 09/27/2024 8:[address] ABDOMEN PELVIS WO CONTRAST STAT 09/27/2024 8:31 PM EST ECG 12-LEAD STAT 09/27/2024 7:59 PM EST XR CHEST 2 VIEWS STAT 09/27/2024 7:42 PM EST CBC WITH AUTO DIFFERENTIAL STAT 09/27/2024 6:49 PM EST LIPASE STAT 09/27/2024 6:49 PM EST MAGNESIUM STAT 09/27/2024 6:49 PM EST COMPREHENSIVE METABOLIC PANEL STAT 09/27/2024 6:49 PM EST CBC AND DIFFERENTIAL STAT 09/27/2024 6:49 PM EST ECG ANNOTATED 09/27/2024 CULTURE URINE Routine 09/26/2024 12:10 PM EST Acute UTI HEMOGLOBIN A1C Routine 09/18/2024 9:29 AM EST Urinary tract infection, site not specified Type 2 diabetes mellitus without complications (CMS/HCC) Unspecified atrial fibrillation (CMS/HCC) COMPREHENSIVE METABOLIC PANEL Routine 09/18/2024 9:29 AM EST Urinary tract infection, site not specified Type 2 diabetes mellitus without complications (CMS/HCC) Unspecified atrial fibrillation (CMS/HCC) COMPLETE BLOOD COUNT Routine 09/18/2024 9:29 AM EST Urinary tract infection, site not specified Type 2 diabetes mellitus without complications (CMS/HCC) Unspecified atrial fibrillation (CMS/HCC) BASIC METABOLIC PANEL Routine 09/15/2024 7:51 AM EST LAVENDER - EDTA Routine 09/15/2024 7:48 AM EST EXTRA TUBES Routine 09/15/2024 7:48 AM EST CPAP NIV Routine 09/13/2024 10:00 PM EST CBC WITH AUTO DIFFERENTIAL Routine 09/13/2024 6:11 AM EST BASIC METABOLIC PANEL Routine 09/13/2024 6:11 AM EST CBC AND DIFFERENTIAL Routine 09/13/2024 6:11 AM EST CPAP NIV Routine 09/12/2024 10:00 PM EST CBC WITH AUTO DIFFERENTIAL Routine 09/12/2024 8:48 AM EST BASIC METABOLIC PANEL Routine 09/12/2024 8:48 AM EST CBC AND DIFFERENTIAL Routine 09/12/2024 8:48 AM EST CPAP NIV Routine 09/11/2024 10:00 PM EST MR BRAIN WO AND W CONTRAST Routine 09/11/2024 7:[address] HEAD WO CONTRAST STAT 09/11/2024 3 :04 PM EST US RETROPERITONEAL COMPLETE Routine 09/11/2024 1:00 PM EST COMPLETE BLOOD COUNT Routine 09/11/2024 4:31 AM EST COMPREHENSIVE METABOLIC PANEL Routine 09/11/2024 4:31 AM EST CULTURE BLOOD STAT 09/10/2024 10:26 PM EST CULTURE BLOOD Routine 09/10/2024 10:26 PM EST TROPONIN I HIGH SENSITIVITY STAT 09/10/2024 1:52 PM EST [facility] URINE CULTURE TUBE STAT 09/10/20 24 1:09 PM EST URINALYSIS WITH REFLEX MICROSCOPIC AND CULTURE STAT 09/10/2024 1:09 PM EST URINALYSIS WITH REFLEX MICROSCOPIC AND CULTURE STAT 09/10/2024 1:09 PM EST CULTURE URINE STAT 09/10/2024 1:09 PM EST ECG 12-LEAD STAT 09/10/2024 12:31 PM EST TROPONIN I HIGH SENSITIVITY STAT 09/10/2024 12:30 PM EST CBC WITH AUTO DIFFERENTIAL STAT 09/10/2024 12:15 PM EST LIPASE STAT 09/10/2024 12:15 PM EST COMPREHENSIVE METABOLIC PANEL STAT 09/10/2024 12:15 PM EST CBC AND DIFFERENTIAL STAT 09/10/2024 12:15 PM EST ECG ANNOTATED 09/10/2024 [place] URINE CULTURE TUBE STAT 09/05/20 9:09 PM EST URINALYSIS WITH REFLEX MICROSCOPIC AND CULTURE STAT 09/05/2024 9:09 PM EST URINALYSIS WITH REFLEX MICROSCOPIC AND CULTURE STAT 09/05/2024 9:09 PM EST CULTURE URINE STAT 09/05/2024 9:09 PM EST XR CHEST 2 VIEWS STAT 09/05/2024 7:23 PM EST TROPONIN I HIGH SENSITIVITY STAT 09/05/2024 4:08 PM EST CBC WITH AUTO DIFFERENTIAL STAT 09/05/2024 2:42 PM EST B-TYPE NATRIURETIC PEPTIDE STAT 09/05/2024 2:42 PM EST MAGNESIUM STAT 09/05/2024 2:42 PM EST LIPASE STAT 09/05/2024 2:42 PM EST COMPREHENSIVE METABOLIC PANEL STAT 09/05/2024 2:42 PM EST CBC AND DIFFERENTIAL STAT 09/05/2024 2:42 PM EST TROPONIN I HIGH SENSITIVITY STAT 09/05/2024 2:42 PM EST ECG 12-LEAD STAT 09/05/2024 2:26 PM EST ECG ANNOTATED 09/05/2024 ECG OUTSIDE 09/05/2024 HEMOGLOBIN A1C Routine 08/29/2024 11:11 AM EST Type 2 diabetes mellitus with stage 3 chronic kidney disease, without long-term current use of insulin, unspecified whether stage 3a or 3b CKD ([facility]) LIPID PANEL Routine 11/23/2023 DIABETES EYE EXAM Routine 10/11/2023 TRANSFUSE RED BLOOD CELLS STAT from Last 3 Months or Most Recently Relevant to Health Maintenance Results * (ABNORMAL) Complete blood count (11/06/2024 8:31 AM EST) Only the most recent of15 resultswithin the time period is included. WBC 7.5 4.8 - 10.8 K/mcL LAB HEMETOLOGY METHOD 11/06/2024 12:37 PM [facility] RBC 3.10(L) 4.50 - 5.50 M/mcL LAB HEMETOLOGY METHOD 11/06/2024 12:37 PM [facility] Hemoglobin 9.2(L) 13.5 - 17.5 g/dL LAB HEMETOLOGY METHOD 11/06/2024 12:37 PM [facility] Hematocrit 29.4(L) 42.0 - 54.0 % LAB HEMETOLOGY METHOD 11/06/2024 12:37 PM [facility] MCV 96.1 79.0 - 98.0 FL LAB HEMETOLOGY METHOD 11/06/2024 12:37 PM [facility] MCH 30.1 27.0 - 32.0 pcg LAB HEMETOLOGY METHOD 11/06/2024 12:37 PM [facility] MCHC 31.3(L) 32.0 - 37.0 g/dL LAB HEMETOLOGY METHOD 11/06/2024 12:37 PM EST [facility] RDW 14.7 11.0 - 15.0 % LAB HEMETOLOGY METHOD 11/06/2024 12:37 PM EST [facility] Platelets 414(H) 130 - 400 K/mcL LAB HEMETOLOGY METHOD 11/06/2024 12:37 PM EST [facility] MPV 8.0 7.0 - 11.0 FL LAB HEMETOLOGY METHOD 11/06/2024 12:37 PM EST [facility] NRBC 0.0 <1.0 % LAB HEMETOLOGY METHOD 11/06/2024 12:37 PM [facility] NRBC Absolute 0.00 <0.10 K/mcL LAB HEMETOLOGY METHOD 11/06/2024 12:37 PM [facility] Blood Venous blood specimen / Unknown 11/06/2024 8:31 AM EST 11/06/2024 11:12 AM EST us Roxana Murray MD LAB BLOOD ORDERABLES Fin al Result [facility] [address] [place] [address], * (ABNORMAL) Comprehensive metabolic panel (11/06/2024 8:31 AM EST) Only the most recent of13 resultswithin the time period is included. Sodium 132(L) 133 - 145 mmol/L LAB CHEMISTRY METHOD 11/06/2024 1:40 PM EST [facility] Potassium 4.4 3.5 - 5.5 mmol/L LAB CHEMISTRY METHOD 11/06/2024 1:40 PM [facility] Chloride 98 96 - 110 mmol/L LAB CHEMISTRY METHOD 11/06/2024 1:40 PM EST [facility] CO2 24 21 - 32 mmol/L LAB CHEMISTRY METHOD 11/06/2024 1:40 PM [facility] Anion Gap 10 3 - 11 LAB CHEMISTRY METHOD 11/06/2024 1:40 PM [facility] Glucose 169(H) 70 - 100 mg/dL LAB CHEMISTRY METHOD 11/06/2024 1:40 PM [facility] BUN 18 5 - 25 mg/dL LAB CHEMISTRY METHOD 11/06/2024 1:40 PM [facility] Creatinine 0.99 0.70 - 1.30 mg/dL LAB CHEMISTRY METHOD 11/06/2024 1:40 PM [facility] eGFR 74 >=60 mL/min/1. 73m2 LAB CHEMISTRY METHOD 11/06/2024 1:40 PM [facility] Comment:Calculation based on the??Chronic Kidney Disease Epidemiology Collaboration (CKD-EPI) equation refit??without adjustment for race. BUN/Creatinine Ratio 18.2 LAB CHEMISTRY METHOD 11/06/2024 1:40 PM [facility] Calcium 9.7 8.5 - 10.5 mg/dL LAB CHEMISTRY METHOD 11/06/2024 1:40 PM [facility] AST (SGOT) 24 10 - 42 unit/L LAB CHEMISTRY METHOD 11/06/2024 1:40 PM [facility] ALT (SGPT) 21 10 - 60 unit/L LAB CHEMISTRY METHOD 11/06/2024 1:40 PM [facility] Alkaline Phosphatase 216(H) 42 - 121 unit/L LAB CHEMISTRY METHOD 11/06/2024 1:40 PM [facility] Total Protein 7.1 6.0 - 8.0 g/dL LAB CHEMISTRY METHOD 11/06/2024 1:40 PM [facility] Albumin 3.1(L) 3.2 - 5.0 g/dL LAB CHEMISTRY METHOD 11/06/2024 1:40 PM [facility] Total Bilirubin 0.4 0.0 - 1.4 mg/dL LAB CHEMISTRY METHOD 11/06/2024 1:40 PM EST [facility] Blood Venous blood specimen / Unknown 11/06/2024 8:31 AM EST 11/06/2024 11:12 AM EST Roxana Murray MD LAB BLOOD ORDERABLES Fin al Result Performing Organization Address City/[facility]/ZIP Co de Phone Number [facility] [address] [place] [address], [place] [phone] * SST tube (10/16/2024 7:13 AM EST) Only the most recent of4 resultswithin the time period is included. Extra Tube Hold for add-ons. 10/16/2024 9:01 AM EST [facility] Comment:Auto resulted. Blood Venous blood specimen / Unknown 10/16/2024 7:13 AM EST 10/16/2024 7:22 AM EST Alcides Patton MD LAB BLOOD ORDERABLES Final Re sult Performing Organization Address City/[facility]/ZIP Co de Phone Number [facility] [address] [place] [address], * (ABNORMAL) Hemoglobin and hematocrit (10/16/2024 7:13 AM EST) Only the most recent of2 resultswithin the time period is included. Hemoglobin 7.7(L) 13.5 - 17.5 g/dL LAB HEMETOLOGY METHOD 10/16/2024 7:53 AM EST [facility] Hematocrit 23.8(L) 42.0 - 54.0 % LAB HEMETOLOGY METHOD 10/16/2024 7:53 AM [facility] Blood Venous blood specimen / Unknown Venipuncture / Unknown 10/16/2024 7:13 AM EST 10/16/2024 7:21 AM EST Alcides Patton MD LAB BLOOD ORDERABLES Final Re sult [facility] [address] [place] [address], [place] [phone] * ECG 12 lead (10/14/2024 1:15 PM EST) Only the most recent of4 resultswithin the time period is included. Ventricular Rate ECG 94 BPM [facility] Atrial Rate 89 BPM [facility] QRS Duration 96 ms GEMUSE Q-T Interval 374 ms GEMUSE QTc 467 ms GEMUSE R [place] 64 degrees GEMUSE T [place] -10 degrees GEMUSE ECG Interpretation Atrial fibrillation Low voltage QRS Incomplete right bundle branch block Nonspecific ST abnormality Abnormal QRS-T angle, consider primary T wave abnormality Abnormal ECG When compared with ECG of 27-SEP-2024 19:59, QT has lengthened Confirmed by MICAH MARINO ([id number]) on 10/14/2024 5:06:50 PM [facility] 10/14/2024 1:15 PM EST 10/14/2024 5:06 PM EST Alcides Patton MD ECG ORDERABLES Final Result [facility] * (ABNORMAL) Soluble transferrin receptor (10/12/2024 6:17 AM EST) Soluble Transferrin Receptor 10.8(L) 12.2 - 27.3 nmol/L 10/15/2024 4:05 PM EST [facility] Blood Venous blood specimen / Unknown Venipuncture / Unknown 10/12/2024 6:17 AM EST 10/12/2024 6:48 AM EST Narrative [facility] - 10/15/2024 4:05 PM EST Performed at: ??01 - [facility] [address] ??[id number] Spinner Cap Frame: Sowmya Mason MD, Phone: ??[phone] Natali Saundersr DIESEL MAINTENANCE TECHNICIAN LAB BLOOD ORDERABLES Fin al Result [facility] * (ABNORMAL) CBC auto differential (10/12/2024 6:17 AM EST) Only the most recent of10 resultswithin the time period is included. WBC 12.5(H) 4.8 - 10.8 K/mcL LAB HEMETOLOGY METHOD 10/12/2024 7:20 AM [facility] RBC 2.80(L) 4.50 - 5.50 M/mcL LAB HEMETOLOGY METHOD 10/12/2024 7:20 AM [facility] Hemoglobin 8.5(L) 13.5 - 17.5 g/dL LAB HEMETOLOGY METHOD 10/12/2024 7:20 AM [facility] Hematocrit 26.5(L) 42.0 - 54.0 % LAB HEMETOLOGY METHOD 10/12/2024 7:20 AM [facility] MCV 94.3 79.0 - 98.0 FL LAB HEMETOLOGY METHOD 10/12/2024 7:20 AM [facility] MCH 30.2 27.0 - 32.0 pcg LAB HEMETOLOGY METHOD 10/12/2024 7:20 AM [facility] MCHC 32.1 32.0 - 37.0 g/dL LAB HEMETOLOGY METHOD 10/12/2024 7:20 AM [facility] RDW 14.9 11.0 - 15.0 % LAB HEMETOLOGY METHOD 10/12/2024 7:20 AM [facility] Platelets 303 130 - 400 K/mcL LAB HEMETOLOGY METHOD 10/12/2024 7:20 AM [facility] MPV 8.5 7.0 - 11.0 FL LAB HEMETOLOGY METHOD 10/12/2024 7:20 AM [facility] NRBC 0.0 <1.0 % LAB HEMETOLOGY METHOD 10/12/2024 7:20 AM [facility] NRBC Absolute 0.00 <0.10 K/mcL LAB HEMETOLOGY METHOD 10/12/2024 7:20 AM [facility] Neutrophils Relative 68.8 % LAB HEMETOLOGY METHOD 10/12/2024 7:20 AM [facility] Lymphocytes Relative 16.7 % LAB HEMETOLOGY METHOD 10/12/2024 7:20 AM [facility] Monocytes Relative 7.7 % LAB HEMETOLOGY METHOD 10/12/2024 7:20 AM [facility] Eosinophils Relative 5.8 % LAB HEMETOLOGY METHOD 10/12/2024 7:20 AM [facility] Basophils Relative 0.3 % LAB HEMETOLOGY METHOD 10/12/2024 7:20 AM [facility] Immature Granulocytes Relative 0.7 % LAB HEMETOLOGY METHOD 10/12/2024 7:20 AM [facility] Neutrophils Absolute 8.57(H) 1.50 - 7.00 K/mcL LAB HEMETOLOGY METHOD 10/12/2024 7:20 AM [facility] Lymphocytes Absolute 2.08 1.00 - 5.00 K/mcL LAB HEMETOLOGY METHOD 10/12/2024 7:20 AM [facility] Monocytes Absolute 0.96 0.20 - 1.00 K/mcL LAB HEMETOLOGY METHOD 10/12/2024 7:20 AM [facility] Eosinophils Absolute 0.72(H) 0.00 - 0.50 K/mcL LAB HEMETOLOGY METHOD 10/12/2024 7:20 AM [facility] Basophils Absolute 0.04 0.00 - 0.20 K/mcL LAB HEMETOLOGY METHOD 10/12/2024 7:20 AM [facility] Immature Granulocytes Absolute 0.09(H) 0.00 - 0.03 K/mcL LAB HEMETOLOGY METHOD 10/12/2024 7:20 AM EST [facility] Blood Venous blood specimen / Unknown Venipuncture / Unknown 10/12/2024 6:17 AM EST 10/12/2024 6:48 AM EST Natali Hernandez DIESEL MAINTENANCE TECHNICIAN LAB BLOOD ORDERABLES Fin al Result Performing Organization Address [facility]/ZIP Co de Phone Number [facility] [address] [place] [address], [place] [phone] * (ABNORMAL) Iron and TIBC (10/12/2024 6:17 AM EST) Iron 178(H) 50 - 160 mcg/dL LAB CHEMISTRY METHOD 10/12/2024 7:37 AM EST [facility] TIBC 256 250 - 450 mcg/dL LAB CHEMISTRY METHOD 10/12/2024 7:37 AM EST [facility] Iron Saturation 70(H) 20 - 50 % LAB CHEMISTRY METHOD 10/12/2024 7:37 AM EST [facility] Blood Venous blood specimen / Unknown Venipuncture / Unknown 10/12/2024 6:17 AM EST 10/12/2024 6:48 AM EST Natali Hernandez NP LAB BLOOD ORDERABLES Fin al Result Performing Organization Address [facility]/ZIP Co de Phone Number [facility] [address] [place] [address], [place] [phone] * (ABNORMAL) Folate (10/12/2024 6:17 AM EST) Folate >20.0(H) 2.8 - 17.0 ng/ml LAB CHEMISTRY METHOD 10/12/2024 8:00 AM EST [facility] Blood Venous blood specimen / Unknown Venipuncture / Unknown 10/12/2024 6:17 AM EST 10/12/2024 6:48 AM EST us Natali Hernandez NP LAB BLOOD ORDERABLES Fin al Result Performing Organization Address [facility]/ZIP Co de Phone Number [facility] [address] [place] [address], [place] [phone] * Ferritin (10/12/2024 6:17 AM EST) [facility] Ferritin 128 26 - 388 ng/mL LAB CHEMISTRY METHOD 10/12/2024 8:00 AM EST [facility] Blood Venous blood specimen / Unknown Venipuncture / Unknown 10/12/2024 6:17 AM EST 10/12/2024 6:48 AM EST us Natali Hernandez NP LAB BLOOD ORDERABLES Fin al Result Performing Organization Address [facility] de Phone Number [facility] [address] [place] [address], [place] [phone] * (ABNORMAL) Vitamin B12 (10/12/2024 6:17 AM EST) [facility] Vitamin B-12 1,133(H) 250 - 900 pcg/mL LAB CHEMISTRY METHOD 10/12/2024 8:00 AM EST [facility] Blood Venous blood specimen / Unknown Venipuncture / Unknown 10/12/2024 6:17 AM EST 10/12/2024 6:48 AM EST us Natali Hernandez NP LAB BLOOD ORDERABLES Fin al Result Performing Organization Address City/[facility]/ZIP Co de Phone Number [facility] [address] [place] [address], [place] [phone] * (ABNORMAL) Basic metabolic panel (10/12/2024 6:17 AM EST) Only the most recent of8 resultswithin the time period is included. Sodium 136 133 - 145 mmol/L LAB CHEMISTRY METHOD 10/12/2024 7:37 AM [facility] Potassium 4.3 3.5 - 5.5 mmol/L LAB CHEMISTRY METHOD 10/12/2024 7:37 AM [facility] Chloride 105 96 - 110 mmol/L LAB CHEMISTRY METHOD 10/12/2024 7:37 AM [facility] CO2 26 21 - 32 mmol/L LAB CHEMISTRY METHOD 10/12/2024 7:37 AM [facility] Anion Gap 5 3 - 11 LAB CHEMISTRY METHOD 10/12/2024 7:37 AM [facility] Glucose 121(H) 70 - 100 mg/dL LAB CHEMISTRY METHOD 10/12/2024 7:37 AM [facility] BUN 25 5 - 25 mg/dL LAB CHEMISTRY METHOD 10/12/2024 7:37 AM [facility] Creatinine 0.92 0.70 - 1.30 mg/dL LAB CHEMISTRY METHOD 10/12/2024 7:37 AM [facility] eGFR 81 >=60 mL/min/1. 73m2 LAB CHEMISTRY METHOD 10/12/2024 7:37 AM [facility] Comment:Calculation based on the??Chronic Kidney Disease Epidemiology Collaboration (CKD-EPI) equation refit??without adjustment for race. BUN/Creatinine Ratio 27.2 LAB CHEMISTRY METHOD 10/12/2024 7:37 AM [facility] Calcium 9.9 8.5 - 10.5 mg/dL LAB CHEMISTRY METHOD 10/12/2024 7:37 AM [facility] Blood Venous blood specimen / Unknown Venipuncture / Unknown 10/12/2024 6:17 AM EST 10/12/2024 6:48 AM EST Natali Hernandez NP LAB BLOOD ORDERABLES Fin al Result Performing Organization Address [facility] Co de Phone Number [facility] [address] [place] [address], * Prepare RBC: 1 Units (10/11/2024 3:10 PM EST) Product Code [id number] 10/11/2024 7:17 PM EST [facility] Unit Number [id number] 10/11/19 7:17 PM EST [facility] Crossmatch Compatible 10/11/2024 3:18 PM EST [facility] Dispense Status Transfused 10/11/2024 7:17 PM EST [facility] Unit ABO Rh APOS 10/11/2024 7:17 PM EST [facility] Unit Expiration Date Time [id number] 10/11/2024 7:17 PM EST [facility] Unit Blood Type 6200 10/11/2024 7:17 PM EST [facility] Blood Venous blood specimen / Unknown 10/11/2024 3:10 PM EST 10/11/2024 11:58 AM EST Skye [facility]ENDRICKSON [facility] PRODUCT ORDERABLES Final Result Performing Organization Address [facility] de Phone Number [facility] [address] [place] [address], [place] [phone] * XR Chest 2 Views (10/11/2024 2:40 PM EST) Only the most recent of3 resultswithin the time period is included. Anatomical Region Laterality Modality Body Radiographic Leyla ging 10/11/2024 2:59 PM EST Impressions 10/11/2024 3:21 PM EST Pulmonary fibrotic changes with mild edema not excluded. No significant change from the prior study. -------- FINAL REPORT -------- Dictated By: Romana Cardenas Dictated Date: 10/11/2024 14:59 ET Assigned Physician: Romana Cardenas Reviewed and Electronically Signed By: Romana Cardenas Signed Date: 10/11/2024 15:21 ET Workstation ID: [id number] Transcribed By: Self Edit Transcribed Date: 10/11/2024 14:59 ET Narrative 10/11/2024 3:21 PM EST INDICATION: Shortness of breath FINDINGS: Two views of the chest were obtained. Compared to multiple prior studies most recent from September 27, 2024. Hypoinflated lungs with fibrotic changes. Mild superimposed edema not excluded. No focal infiltrates or effusions. No pneumothorax or pneumomediastinum. Cardiomediastinal silhouette is normal in size and shape. Bony structures grossly intact. Procedure Note Romana Cardenas MD - 10/11/2024 INDICATION: Shortness of breath FINDINGS: Two views of the chest were obtained. Compared to multiple priorstudies most recent from September 27, 2024. Hypoinflated lungs with fibrotic changes. Mild superimposed edema notexcluded. No focal infiltrates or effusions. No pneumothorax orpneumomediastinum. Cardiomediastinal silhouette is normal in size and shape. Bony structures grossly intact. IMPRESSION: Pulmonary fibrotic changes with mild edema not excluded. No significantchange from the prior study. -------- FINAL REPORT -------- Dictated By: Romana Cardenas Dictated Date: 10/11/2024 14:59 ET Assigned Physician: Romana Cardenas Reviewed and Electronically Signed By: Romana Cardenas Signed Date: 10/11/2024 15:21 ET Workstation ID: [id number] Transcribed By: Self Edit Transcribed Date: 10/11/2024 14:59 ET Skye HENDRICKSON [facility] XR PROCEDURES Final Result * CT Angio Abdomen Pelvis wo and/or w Contrast (10/11/2024 2:03 PM EST) Anatomical Region Laterality Modality Body Computed Tomogra phy 10/11/2024 3:21 PM EST Impressions 10/11/2024 3:40 PM EST No active gastrointestinal hemorrhage. Mild acute diverticulitis along the proximal sigmoid colon. -------- FINAL REPORT -------- Dictated By: Romana Cardenas Dictated Date: 10/11/2024 15:21 ET Assigned Physician: Romana Cardenas Reviewed and Electronically Signed By: Romana Cardenas Signed Date: 10/11/2024 15:40 ET Workstation ID: [id number] Transcribed By: Self Edit Transcribed Date: 10/11/2024 15:21 ET Narrative 10/11/2024 3:40 PM EST INDICATION: ??Gastrointestinal hemorrhage Scanner: GE LightSpeed 64 slice VCT Dose reduction technique: ASIR (Adaptive statistical iterative reconstruction) and/or AEC (automated exposure control) Dose: total exam DLP 4045 mGY per cm COMPARISON: Noncontrast study from September 27, 2024 reviewed with angiographic study from May 01, 2024 reviewed. FINDINGS: CTA of the abdomen and pelvis obtained with a total of 90 cc Isovue- 370 administered intravenously without incident. Late arterial and early delayed phase imaging obtained. 3D multiplanar reconstructions performed on a computer workstation. GI tract: No evidence of active extravasation. Summary unremarkable. Small bowel loops are normal in course and caliber. Terminal ileum normal. Ascending, transverse and descending colon unremarkable with diverticulosis particularly on the left side. Sigmoid diverticulitis noted new from the prior study. 5 cm diverticulum is unchanged. Lung bases fibrotic changes with small bilateral pleural effusions. Bony structures demonstrate degenerative changes as well as well-positioned right hip replacement. Liver, spleen, pancreas and adrenal glands are within normal limits. Gallbladder is contains dependent noncalcified gallstones. Kidneys are within normal limits. No free air or free fluid in the abdomen or pelvis. Portacatheter noted within decompressed urinary bladder. Abdominal aorta is well-opacified and demonstrates mild atherosclerotic disease. Small fatty right inguinal hernia. Procedure Note Romana Cardenas MD - 10/11/2024 INDICATION: Gastrointestinal hemorrhage Scanner: Front Flip LightSpeed 64 slice VCT Dose reduction technique: ASIR (Adaptive statistical iterativereconstruction) and/or AEC (automated exposure control) Dose: total exam DLP 4045 mGY per cm COMPARISON: Noncontrast study from September 27, 2024 reviewed withangiographic study from May 01, 2024 reviewed. FINDINGS: CTA of the abdomen and pelvis obtained with a total of 90 ccIsovue-370 administered intravenously without incident. Late arterial andearly delayed phase imaging obtained. 3D multiplanar reconstructionsperformed on a computer workstation. GI tract: No evidence of active extravasation. Summary unremarkable. Small bowel loops are normal in course and caliber.Terminal ileum normal. Ascending, transverse and descending colonunremarkable with diverticulosis particularly on the left side. Sigmoiddiverticulitis noted new from the prior study. 5 cm diverticulum isunchanged. Lung bases fibrotic changes with small bilateral pleural effusions. Bony structures demonstrate degenerative changes as well aswell-positioned right hip replacement. Liver, spleen, pancreas and adrenal glands are within normal limits. Gallbladder is contains dependent noncalcified gallstones. Kidneys are within normal limits. No free air or free fluid in the abdomen or pelvis. Portacatheter noted within decompressed urinary bladder. Abdominal aorta is well-opacified and demonstrates mild atheroscleroticdisease. Small fatty right inguinal hernia. IMPRESSION: No active gastrointestinal hemorrhage. Mild acute diverticulitis along the proximal sigmoid colon. -------- FINAL REPORT -------- Dictated By: Romana Cardenas Dictated Date: 10/11/2024 15:21 ET Assigned Physician: Romana Cardenas Reviewed and Electronically Signed By: Romana Cardenas Signed Date: 10/11/2024 15:40 ET Workstation ID: [id number] Transcribed By: Self Edit Transcribed Date: 10/11/2024 15:21 ET Skye HENDRICKSON [place] CT PROCEDURES Final Result * Lactate (10/11/2024 1:38 PM EST) Only the most recent of2 resultswithin the time period is included. Lactate 1.2 0.4 - 2.0 mmol/L LAB CHEMISTRY METHOD 10/11/2024 2:25 PM EST [facility] Blood Venous blood specimen / Unknown Venipuncture / Unknown 10/11/2024 1:38 PM EST 10/11/2024 1:52 PM EST us Skye HENDRICKSON LAB BLOOD ORDERABLES Final Res ult [facility] [address] [place] [address], [place] [phone] * Respiratory virus panel molecular study (10/11/2024 1:37 PM EST) Adenovirus Detection by PCR Not Detected Not Detected LAB MICROBIOLOGY METHOD 10/11/2024 2:49 PM EST [facility] Influenza A PCR Not Detected Not Detected LAB MICROBIOLOGY METHOD 10/11/2024 2:49 PM EST [facility] Influenza B PCR Not Detected Not Detected LAB MICROBIOLOGY METHOD 10/11/2024 2:49 PM EST [facility] Coronavirus 229E Not Detected Not Detected LAB MICROBIOLOGY METHOD 10/11/2024 2:49 PM EST [facility] Coronavirus HKU1 Not Detected Not Detected LAB MICROBIOLOGY METHOD 10/11/2024 2:49 PM EST [facility] Coronavirus OC43 Not Detected Not Detected LAB MICROBIOLOGY METHOD 10/11/2024 2:49 PM EST [facility] Coronavirus NL63 Not Detected Not Detected LAB MICROBIOLOGY METHOD 10/11/2024 2:49 PM EST [facility] Parainfluenza Virus 1 Not Detected Not Detected LAB MICROBIOLOGY METHOD 10/11/2024 2:49 PM EST [facility] Parainfluenza Virus 2 Not Detected Not Detected LAB MICROBIOLOGY METHOD 10/11/2024 2:49 PM EST [facility] Parainfluenza Virus 3 Not Detected Not Detected LAB MICROBIOLOGY METHOD 10/11/2024 2:49 PM [facility] Parainfluenza Virus 4 Not Detected Not Detected LAB MICROBIOLOGY METHOD 10/11/2024 2:49 PM EST [facility] RSV PCR Not Detected Not Detected LAB MICROBIOLOGY METHOD 10/11/2024 2:49 PM EST [facility] Human Metapneumovirus A and B Not Detected Not Detected LAB MICROBIOLOGY METHOD 10/11/2024 2:49 PM EST [facility] Rhinovirus/Entero virus Not Detected Not Detected LAB MICROBIOLOGY METHOD 10/11/2024 2:49 PM EST [facility] Bordetella pertussis Not Detected Not Detected LAB MICROBIOLOGY METHOD 10/11/2024 2:49 PM EST [facility] Bordetella parapertussis Not Detected Not Detected LAB MICROBIOLOGY METHOD 10/11/2024 2:49 PM EST [facility] Mycoplasma pneumo by PCR Not Detected Not Detected LAB MICROBIOLOGY METHOD 10/11/2024 2:49 PM EST [facility] Chlamydia pneumoniae Not Detected Not Detected LAB MICROBIOLOGY METHOD 10/11/2024 2:49 PM [facility] SARS COV-2 Not Detected Not Detected LAB MICROBIOLOGY METHOD 10/11/2024 2:49 PM [facility] Swab Both anterior nares / Unknown Non-blood Collection / Unknown 10/11/2024 1:37 PM EST 10/11/2024 1:52 PM EST [facility] - 10/11/2024 2:49 PM EST Testing was performed using the Comply7e Respiratory Pathogen PCR Assay. All results must be correlated with the clinical findings. Results should not be used as the sole basis for diagnosis. False Negative results may occur from the presence of sequence variants in the region targeted by the assay or the presence of inhibitors. Results may be affected by concurrent antiviral/antimicrobial therapy or levels of organisms that are below the limit of detection. us Skye HENDRICKSON LAB MICROBIOLOGY - GENERAL ORD ERABLES Final Result [facility] [address] [place] [address], * Protime-INR (10/11/2024 11:49 AM EST) [facility] Protime 12.9 10.6 - 13.9 sec LAB COAGULATION METHOD 10/11/2024 12:12 PM EST [facility] INR 1.0 LAB COAGULATION METHOD 10/11/2024 12:12 PM EST [facility] Blood Venous blood specimen / Unknown Venipuncture / Unknown 10/11/2024 11:49 AM EST 10/11/2024 11:58 AM EST us Hugh Stubbs MD LAB BLOOD ORDERABLES Final Resu lt [facility] [address] [place] [address], [place] [phone] * Type and screen (10/11/2024 11:45 AM EST) [facility] ABO Group A 10/11/2024 1:45 PM EST [facility] Rh Type Positive 10/11/2024 1:45 PM EST [facility] Antibody Screen Negative 10/11/2024 1:45 PM EST [facility] Blood Venous blood specimen / Unknown Venipuncture / Unknown 10/11/2024 11:45 AM EST 10/11/2024 11:58 AM EST us Hugh Stubbs MD LAB BLOOD BANK TEST ORDERABLES Final Result [facility] [address] [place] [address], [place] [phone] * (ABNORMAL) Hemoglobin A1c (10/03/2024 5:30 AM EST) Only the most recent of3 resultswithin the time period is included. [facility] Hemoglobin A1C 7.5(H) <6.5 % LAB CHEMISTRY METHOD 10/03/2024 1:44 PM EST [facility] Mean Bld Glu Estim. 169 mg/dL LAB CHEMISTRY METHOD 10/03/2024 1:44 PM EST [facility] Blood Venous blood specimen / Unknown Venipuncture / Unknown 10/03/2024 5:30 AM EST 10/03/2024 9:43 AM EST Roxana Murray MD LAB BLOOD ORDERABLES Fin al Result Performing Organization Address [facility]/ZIP Co de Phone Number [facility] [address] [place] [address], [place] [phone] * Magnesium (10/02/2024 5:42 AM EST) Only the most recent of6 resultswithin the time period is included. Magnesium 1.9 1.9 - 2.6 mg/dL LAB CHEMISTRY METHOD 10/02/2024 7:58 AM EST [facility] Blood Venous blood specimen / Unknown Venipuncture / Unknown 10/02/2024 5:42 AM EST 10/02/2024 7:02 AM EST Malu Ceron MD LAB BLOOD ORDERABLES Final Res ult Performing Organization Address [facility] de Phone Number [facility] [address] [place] [address], [place] [phone] * (ABNORMAL) POCT Glucose, blood (10/01/2024 8:44 AM EST) Only the most recent of5 resultswithin the time period is included. Glucose POCT 163(H) 70 - 100 mg/dL 10/01/2024 8:44 AM EST [facility] Blood Capillary blood specimen / Unknown 10/01/2024 8:44 AM EST 10/01/2024 8:45 AM EST us Malu Ceron MD LAB POINT OF CARE TE ST DOCKED DEVICE UNSOLICITED RESULTS Final Result Performing Organization Address [facility]/ZIP Co de Phone Number [facility] [address] [place] [address], [place] [phone] * Blood Culture, Peripheral Draw #2 (09/28/2024 9:40 AM EST) Only the most recent of4 resultswithin the time period is included. Culture, Blood No growth at 5 days 10/03/2024 10:01 AM [facility] Blood Venous blood specimen / Unknown Venipuncture / Unknown 09/28/2024 9:40 AM EST 09/28/2024 9:46 AM EST Tressa HENDRICKSON LAB MICROBIOLOGY - GENERAL ORDERABLES Final Result Performing Organization Address [facility] Co de Phone Number [facility] [address] [place] [address], [place] [phone] * (ABNORMAL) Hepatic function panel (09/28/2024 5:46 AM EST) [facility] Total Protein 6.0 6.0 - 8.0 g/dL LAB CHEMISTRY METHOD 09/28/2024 6:43 AM [facility] Albumin 2.8(L) 3.2 - 5.0 g/dL LAB CHEMISTRY METHOD 09/28/2024 6:43 AM [facility] Total Bilirubin 0.7 0.0 - 1.4 mg/dL LAB CHEMISTRY METHOD 09/28/2024 6:43 AM [facility] Bilirubin, Direct 0.4(H) 0.0 - 0.3 mg/dL LAB CHEMISTRY METHOD 09/28/2024 6:43 AM [facility] Bilirubin, Indirect 0.3 0.0 - 1.1 mg/dL LAB CHEMISTRY METHOD 09/28/2024 6:43 AM [facility] ALT (SGPT) 24 10 - 60 unit/L LAB CHEMISTRY METHOD 09/28/2024 6:43 AM [facility] AST (SGOT) 39 10 - 42 unit/L LAB CHEMISTRY METHOD 09/28/2024 6:43 AM [facility] Alkaline Phosphatase 202(H) 42 - 121 unit/L LAB CHEMISTRY METHOD 09/28/2024 6:43 AM [facility] Blood Venous blood specimen / Unknown Venipuncture / Unknown 09/28/2024 5:46 AM EST 09/28/2024 6:09 AM EST us Eldon Lyle DO LAB BLOOD ORDERABLES Final R esult [facility] [address] [place] [address], [place] [phone] * (ABNORMAL) Urinalysis with reflex microscopic and culture (09/27/2024 8:55 PM EST) Only the most recent of3 resultswithin the time period is included. Specific [place] Urine 1.015 1.003 - 1.030 LAB URINALYSIS - AUTOMATED METHOD 09/27/2024 9:12 PM [facility] pH, Urine 5.5 5.0 - 8.0 pH LAB URINALYSIS - AUTOMATED METHOD 09/27/2024 9:12 PM [facility] Leukocytes, Urine Large(A) Negative LAB URINALYSIS - AUTOMATED METHOD 09/27/2024 9:12 PM [facility] Nitrite, Urine Negative Negative LAB URINALYSIS - AUTOMATED METHOD 09/27/2024 9:12 PM [facility] Protein, Urine 30(A) <=Trace mg/dL LAB URINALYSIS - AUTOMATED METHOD 09/27/2024 9:12 PM [facility] Glucose, Urine Negative Negative mg/dL LAB URINALYSIS - AUTOMATED METHOD 09/27/2024 9:12 PM [facility] Ketones, Urine Trace(A) Negative mg/dL LAB URINALYSIS - AUTOMATED METHOD 09/27/2024 9:12 PM [facility] Urobilinogen, Urine 1.0 0.2 - 1.0 mg/dL LAB URINALYSIS - AUTOMATED METHOD 09/27/2024 9:12 PM [facility] Bilirubin, Urine Negative Negative LAB URINALYSIS - AUTOMATED METHOD 09/27/2024 9:12 PM [facility] Blood, Urine Small(A) Negative LAB URINALYSIS - AUTOMATED METHOD 09/27/2024 9:12 PM [facility] RBC, Urine 6.5(H) 0 - 4 /HPF LAB URINALYSIS - AUTOMATED METHOD 09/27/2024 9:12 PM [facility] WBC, Urine 707.2(H) 0 - 4 /HPF LAB URINALYSIS - AUTOMATED METHOD 09/27/2024 9:12 PM [facility] Squamous Epithelial, Urine 16 0 - 60 /LPF LAB URINALYSIS - AUTOMATED METHOD 09/27/2024 9:12 PM [facility] Bacteria, Urine Many(A) Negative /HPF LAB URINALYSIS - AUTOMATED METHOD 09/27/2024 9:12 PM [facility] Hyaline Casts, Urine 3.7(H) 0 - 3 /LPF LAB URINALYSIS - AUTOMATED METHOD 09/27/2024 9:12 PM [facility] Urine Urine specimen obtained by clean catch procedure / Unknown Non-blood Collection / Unknown 09/27/2024 8:55 PM EST 09/27/2024 9:02 PM EST us Lauren HENDRICKSON LAB URINE ORDERABLES Final Result [facility] [address] [place] [address], * Portillo urine culture tube (09/27/2024 8:55 PM EST) Only the most recent of3 resultswithin the time period is included. Extra Tube Hold for add-ons. 09/28/2024 9:01 AM EST [facility] Comment:Auto resulted. Urine Urine specimen obtained by clean catch procedure / Unknown Non-blood Collection / Unknown 09/27/2024 8:55 PM EST 09/28/2024 7:56 AM EST Lauren HENDRICKSON LAB URINE ORDERABLES Final Result [facility] [address] [place] [address], * (ABNORMAL) Culture urine (09/27/2024 8:55 PM EST) Only the most recent of4 resultswithin the time period is included. Culture, Urine >100,000 CFU/mL Escherichia coli(A) ARY 09/30/2024 8:18 AM EST [facility] Comment: This is an edited result. Previous organism was Gram negative bacilli on 09/28/2024 at 1123 EST. Culture, Urine 50,000-100,000 CFU/mL Klebsiella oxytoca(A) ARY 09/30/2024 8:18 AM EST [facility] Comment: The organism value for this result has been updated. These results have been appended to the previously preliminary verified report. This is an edited result. Previous organism was Gram negative bacilli on 09/30/2024 at 0816 EST. Urine Urine specimen obtained by clean catch procedure / Unknown Non-blood Collection / Unknown 09/27/2024 8:55 PM EST 09/27/2024 9:12 PM EST Narrative Organism Antibiotic Method Susceptibility Escherichia coli Amoxicillin/Clavulanate ARY <=2 ug/ml: Susceptible Escherichia coli Ampicillin/Sulbactam ARY <=2 ug/ml: Susceptible Escherichia coli Piperacillin/Tazobactam ARY <=4 ug/ml: Susceptible Escherichia coli Cefazolin (Urine) ARY <=1 ug/ml: Susceptible Escherichia coli Cefoxitin ARY <=4 ug/ml: Susceptible Escherichia coli Ceftazidime ARY <=0.5 ug/ml: Susceptible Escherichia coli Ceftriaxone ARY <=0.25 ug/ml: Susceptible Escherichia coli Cefepime ARY <=0.12 ug/ml: Susceptible Escherichia coli Meropenem ARY <=0.25 ug/ml: Susceptible Escherichia coli Amikacin ARY 4 ug/ml: Susceptible Escherichia coli Gentamicin ARY <=1 ug/ml: Susceptible Escherichia coli Ciprofloxacin ARY <=0.06 ug/ml: Susceptible Escherichia coli Levofloxacin ARY <=0.12 ug/ml: Susceptible Escherichia coli Nitrofurantoin ARY <=16 ug/ml: Susceptible Escherichia coli Trimethoprim/Sulfamethoxazole ARY <=20 ug/ml: Susceptible Klebsiella oxytoca Amoxicillin/Clavulanate ARY <=2 ug/ml: Susceptible Klebsiella oxytoca Ampicillin/Sulbactam ARY 4 ug/ml: Susceptible Klebsiella oxytoca Cefoxitin ARY <=4 ug/ml: Susceptible Klebsiella oxytoca Ceftazidime ARY <=0.5 ug/ml: Susceptible Klebsiella oxytoca Ceftriaxone ARY <=0.25 ug/ml: Susceptible Klebsiella oxytoca Cefepime ARY <=0.12 ug/ml: Susceptible Klebsiella oxytoca Meropenem ARY <=0.25 ug/ml: Susceptible Klebsiella oxytoca Amikacin ARY <=1 ug/ml: Susceptible Klebsiella oxytoca Gentamicin ARY <=1 ug/ml: Susceptible Klebsiella oxytoca Ciprofloxacin ARY <=0.06 ug/ml: Susceptible Klebsiella oxytoca Levofloxacin ARY <=0.12 ug/ml: Susceptible Klebsiella oxytoca Nitrofurantoin ARY 32 ug/ml: Susceptible Klebsiella oxytoca Trimethoprim/Sulfamethoxazole ARY <=20 ug/ml: Susceptible us Lauren HENDRICKSON LAB MICROBIOLOGY - GENERAL ORDERABLES Final Result [facility] [address] [place] [address], * CT Chest wo Contrast (09/27/2024 8:31 PM EST) Anatomical Region Laterality Modality Body Computed Tomogra phy 09/27/2024 9:04 PM EST Impressions 09/27/2024 9:04 PM EST Impression: 1. Nonspecific pulmonary fibrosis as described above. 2. Subacute appearing fractures of the right 8th through 10th ribs posteriorly, and subacute appearing compression deformity at T7. This document has been electronically signed by: Herminio Peguero MD on 09/27/2024 21:04:13 Narrative 09/27/2024 9:04 PM EST Exam: Nonenhanced CT chest with multiplanar reformats. Comparison: Same-day CT abdomen. Findings: Lungs reveal diffuse reticulation with subpleural predominance and basilar predominance, compatible with nonspecific fibrosis. There is bibasilar traction bronchiectasis as well as mild bibasilar bronchial wall thickening involving the lower lobes. No focal consolidation. No definable pulmonary nodules or parenchymal lesions. Airways generally patent. No pneumothorax. No pleural or pericardial effusions. Left atrial appendage occlusion hardware is present. There are nonspecific mildly prominent pretracheal nodes measuring up to 12 mm (3; 75), and left AP window nodes measuring up to 13 mm short axis dimension (3; 75). No other significant appearing mediastinal or hilar masses or adenopathy. Osseous structures reveal subacute appearing fracture of the posterior right 8th through 10th ribs and subacute anterior compression deformity of T7 vertebral body with loss of roughly 30% vertebral body height anteriorly. No definable acute fractures. Multiple bilateral remote healed rib fractures are present. No destructive osseous lesions. Diffuse thoracic and lumbar degenerative changes are present. 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 Procedure Note Herminio Peguero MD - 09/27/2024 Exam: Nonenhanced CT chest with multiplanar reformats. Comparison: Same-day CT abdomen. Findings: Lungs reveal diffuse reticulation with subpleural predominance andbasilar predominance, compatible with nonspecific fibrosis. There is bibasilar traction bronchiectasis as well as mild bibasilar bronchial wall thickening involving the lower lobes. No focal consolidation. Nodefinable pulmonary nodules or parenchymal lesions. Airways generally patent. No pneumothorax. No pleural or pericardial effusions. Left atrial appendage occlusion hardware is present. There are nonspecific mildly prominent pretracheal nodes measuring up to 12 mm (3; 75), and left AP window nodes measuringup to 13 mm short axis dimension (3; 75). No other significant appearing mediastinal or hilar masses or adenopathy. Osseous structures reveal subacute appearing fracture of the posterior right 8th through 10th ribs and subacute anterior compression deformityof T7 vertebral body with loss of roughly 30% vertebral body height anteriorly. No definable acute fractures. Multiple bilateral remotehealed rib fractures are present. No destructive osseous lesions. Diffuse thoracic and lumbar degenerative changes are present. 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 IMPRESSION: Impression: 1. Nonspecific pulmonary fibrosis as described above. 2. Subacute appearing fractures of the right 8th through 10th ribs posteriorly, and subacute appearing compression deformity at T7. This document has been electronically signed by: Herminio Peguero MD on 09/27/2024 21:04:[address] IMG CT PROCEDURES Final Re sult * CT Abdomen Pelvis wo Contrast (09/27/2024 8:31 PM EST) Anatomical Region Laterality Modality Body Computed Tomogra phy 09/27/2024 8:53 PM EST Impressions 09/27/2024 8:53 PM EST Impression: 1. Mild perivesical stranding could suggest cystitis, correlation with urinalysis suggested. No other acute abnormalities or CT explanation for reported history of hematuria. 2. Subacute appearing fractures of the right 8th through 10th posterior ribs, and T7 vertebral body. This document has been electronically signed by: Herminio Peguero MD on 09/27/2024 20:53:57 Narrative 09/27/2024 8:53 PM EST Exam: Unenhanced CT abdomen and pelvis with multiplanar reformats. Comparison: None. Findings: CT abdomen: Lung bases reveal bilateral subpleural reticulation and traction bronchiectasis along with some mild bronchial wall thickening. Liver is free of gross focal lesions and ductal dilatation. Gallbladder reveals cholelithiasis, without CT evidence of cholecystitis. Spleen is unremarkable. Pancreas reveals scattered pancreatic calcifications, suggesting history of chronic pancreatitis. No evidence of acute pancreatitis. Pancreas otherwise unremarkable. Adrenal glands are unremarkable. Kidneys appear unremarkable bilaterally. No urolithiasis or hydroureteronephrosis. No free intraperitoneal fluid or retroperitoneal masses or adenopathy. Abdominal aorta is normal caliber with mild calcific athero sclerosis. Bowel loops reveal no abnormal wall thickening or distention. Colonic diverticulosis is present, without CT evidence of diverticulitis. CT pelvis: Prostate gland is normal size at 3.6 cm transverse dimension. Urinary bladder is free of gross filling defects although may reveal trace perivesical stranding, raising the possibility of cystitis. No pelvic masses, fluid or adenopathy. Osseous structures reveal subacute appearing fracture of the posterior right 8th through 10th ribs. Additional remote appearing bilateral rib fractures are present. There is a subacute appearing anterior compression deformity at T7 with loss of roughly 20 or 30% vertebral body height anteriorly. No destructive osseous lesions. Procedure Note Herminio Peguero MD - 09/27/2024 Exam: Unenhanced CT abdomen and pelvis with multiplanar reformats. Comparison: None. Findings: CT abdomen: Lung bases reveal bilateral subpleural reticulation and traction bronchiectasis along with some mild bronchial wall thickening. Liver is free of gross focal lesions and ductal dilatation. Gallbladder reveals cholelithiasis, without CT evidence of cholecystitis. Spleen is unremarkable. Pancreas reveals scattered pancreatic calcifications, suggesting history of chronic pancreatitis. No evidence of acute pancreatitis. Pancreas otherwise unremarkable. Adrenal glands are unremarkable. Kidneys appear unremarkable bilaterally. No urolithiasis or hydroureteronephrosis. No free intraperitoneal fluid or retroperitoneal masses or adenopathy. Abdominal aorta is normal caliber with mild calcific athero sclerosis. Bowel loops reveal no abnormal wall thickening or distention. Colonic diverticulosis is present, without CT evidence of diverticulitis. CT pelvis: Prostate gland is normal size at 3.6 cm transverse dimension. Urinary bladder is free of gross filling defects although may revealtrace perivesical stranding, raising the possibility of cystitis. No pelvic masses, fluid or adenopathy. Osseous structures reveal subacute appearing fracture of the posterior right 8th through 10th ribs. Additional remote appearing bilateral rib fractures are present. There is a subacute appearing anteriorcompression deformity at T7 with loss of roughly 20 or 30% vertebral body height anteriorly. No destructive osseous lesions. IMPRESSION: Impression: 1. Mild perivesical stranding could suggest cystitis, correlation with urinalysis suggested. No other acute abnormalities or CT explanation for reported history of hematuria. 2. Subacute appearing fractures of the right 8th through 10th posterior ribs, and T7 vertebral body. This document has been electronically signed by: Herminio Peguero MD on 09/27/2024 20:53:57 us Lauren HENDRICKSON IMG CT PROCEDURES Final Re sult * Lipase (09/27/2024 6:49 PM EST) Only the most recent of3 resultswithin the time period is included. Lipase 26 13 - 75 unit/L LAB CHEMISTRY METHOD 09/27/2024 7:36 PM EST [facility] Blood Venous blood specimen / Unknown Venipuncture / Unknown 09/27/2024 6:49 PM EST 09/27/2024 7:09 PM EST Eldon Lyle DO LAB BLOOD ORDERABLES Final R esult Performing Organization Address [facility] Co de Phone Number [facility] [address] [place] [address], [place] [phone] * ECG-Annotated (09/27/2024) Only the most recent of3 resultswithin the time period is included. us Provider Onbase MD ECG ORDERABLES Final Result * Lavender tube (09/15/2024 7:48 AM EST) Pathologist [facility] Extra Tube Hold for add-ons. 09/15/2024 10:01 AM EST [facility] Comment:Auto resulted. Blood Venous blood specimen / Unknown Venipuncture / Unknown 09/15/2024 7:48 AM EST 09/15/2024 8:13 AM EST Rajendra Gruber MD LAB BLOOD ORDERABLES Final Resu lt Performing Organization Address City/[facility]/ZIP Co de Phone Number [facility] [address] [place] [address], [place] [phone] * MR Brain wo and w Contrast (09/11/2024 7:25 PM EST) Anatomical Region Laterality Modality Head and Neck Magnetic Resonan ce 09/11/2024 8:43 PM EST Impressions 09/11/2024 8:43 PM EST Impression: 1. No acute infarct. No intracranial mass. 2. 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 This document has been electronically signed by: Joann Chang MD on 09/11/2024 20:43:20 Narrative 09/11/2024 8:43 PM EST Exam: MRI of the brain with and without IV contrast Procedure: 15 mL of Dotarem Comparison: None Clinical history: Neuro deficit acute stroke suspected. Left weakness. Dropping items with left hand. Rule out lesion or CVA. Findings: Diffusion sequence is negative for acute infarction. 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 No acute intracranial hemorrhage. No intracranial masses. No midline shift. No abnormal extra-axial fluid collections are seen. Moderate cerebral volume loss. Areas of increased FLAIR signal within the cerebral white matter bilaterally are reflective of a nonspecific demyelinating process, likely ischemic microvascular in nature. Gradient sequence does not demonstrate any areas of abnormal parenchymal signal dropout. Postcontrast imaging of the brain does not demonstrate any areas of abnormal parenchymal enhancement. Dural venous sinuses are patent without thrombosis. Scattered fluid in the mastoid air cells bilaterally Procedure Note Joann Chang MD - 09/11/2024 Exam: MRI of the brain with and without IV contrast Procedure: 15 mL of Dotarem Comparison: None Clinical history: Neuro deficit acute stroke suspected. Left weakness. Dropping items with left hand. Rule out lesion or CVA. Findings: Diffusion sequence is negative for acute infarction. 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 No acute intracranial hemorrhage. No intracranial masses. No midline shift. No abnormal extra-axial fluid collections are seen. Moderate cerebral volume loss. Areas of increased FLAIR signal within the cerebral white matter bilaterally are reflective of a nonspecific demyelinating process,likely ischemic microvascular in nature. Gradient sequence does not demonstrate any areas of abnormal parenchymal signal dropout. Postcontrast imaging of the brain does not demonstrate any areas of abnormal parenchymal enhancement. Dural venous sinuses are patent without thrombosis. Scattered fluid in the mastoid air cells bilaterally IMPRESSION: Impression: 1. No acute infarct. No intracranial mass. 2. 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 This document has been electronically signed by: Joann Chang MD on 09/11/2024 20:43:20 us Tressa HENDRICKSON IMG MRI PROCEDURES Final Re sult * CT Head wo Contrast (09/11/2024 3:04 PM EST) Anatomical Region Laterality Modality Head and Neck Computed Tomogra phy 09/11/2024 3:19 PM EST Impressions 09/11/2024 3:24 PM EST No acute intracranial findings. -------- FINAL REPORT -------- Dictated By: Abran Mcmanus Dictated Date: 09/11/2024 15:19 ET Assigned Physician: Abran Mcmanus Reviewed and Electronically Signed By: Abran Mcmanus Signed Date: 09/11/2024 15:24 ET Workstation ID: [id number] Transcribed By: Self Edit Transcribed Date: 09/11/2024 15:20 ET Narrative 09/11/2024 3:[address] dated 09/11/2024. HISTORY: Neuro deficit, acute, stroke suspected. COMPARISON: 2024. TECHNIQUE: Noncontrast head CT with coronal and sagittal reformats. Dose length product: ??373 mGy-cm. FINDINGS: Brain: No hemorrhage, edema, mass, or extra-axial fluid collection. ??No CT evidence of an acute large vessel infarct. ??Generalized age commensurate sulcal and ventricular prominence. ??Atherosclerotic calcifications of the carotid siphons. Sinuses/mastoids: Normal. Orbits: Lens implants. Calvarium: Normal. Other: The skull base soft tissues are normal. Procedure Note Abran Mcmanus MD - 09/11/[address] dated 09/11/2024. HISTORY: Neuro deficit, acute, stroke suspected. COMPARISON: 2024. TECHNIQUE: Noncontrast head CT with coronal and sagittal reformats. Dose length product: 373 mGy-cm. FINDINGS: Brain: No hemorrhage, edema, mass, or extra-axial fluid collection. No CTevidence of an acute large vessel infarct. Generalized age commensuratesulcal and ventricular prominence. Atherosclerotic calcifications of thecarotid siphons. Sinuses/mastoids: Normal. Orbits: Lens implants. Calvarium: Normal. Other: The skull base soft tissues are normal. IMPRESSION: No acute intracranial findings. -------- FINAL REPORT -------- Dictated By: Abran Mcmanus Dictated Date: 09/11/2024 15:19 ET Assigned Physician: Abran Mcmanus Reviewed and Electronically Signed By: Abran Mcmanus Signed Date: 09/11/2024 15:24 ET Workstation ID: [id number] Transcribed By: Self Edit Transcribed Date: 09/11/2024 15:20 ET us Tressa HENDRICKSON IMG CT PROCEDURES Final Res ult * US Retroperitoneal Complete (09/11/2024 1:00 PM EST) Anatomical Region Laterality Modality Body Ultrasound 09/11/2024 2:53 PM EST Impressions 09/11/2024 3:19 PM EST Unremarkable renal ultrasound. Undistended urinary bladder limiting evaluation. -------- FINAL REPORT -------- Dictated By: Cheko Umana Dictated Date: 09/11/2024 14:53 ET Assigned Physician: Cheko Umana Reviewed and Electronically Signed By: Cheko Umana Signed Date: 09/11/2024 15:19 ET Workstation ID: [id number] Transcribed By: Self Edit Transcribed Date: 09/11/2024 15:15 ET Narrative 09/11/2024 3:19 PM EST EXAMINATION: Ultrasound retroperitoneum complete. CLINICAL INDICATION: MELODY. Evaluate for hydronephrosis or pyelonephritis. COMPARISON: None. TECHNIQUE: Routine transabdominal imaging of kidneys was performed. FINDINGS: Right kidney: The right kidney measures 10.3 cm in length. There is normal cortical thickness. No echogenic stones, cyst or hydronephrosis seen. No perinephric fluid collection. Left kidney: The left kidney measures 9.0 cm in length. There are no echogenic stones, cyst or hydronephrosis. No perinephric fluid collection seen. Bladder: Limited imaging of the bladder reveals undistended bladder. Ureteral jets are not seen. Procedure Note Lyndsay, Cheko S, MD - 09/11/2024 EXAMINATION: Ultrasound retroperitoneum complete. CLINICAL INDICATION: MELODY. Evaluate for hydronephrosis or pyelonephritis. COMPARISON: None. TECHNIQUE: Routine transabdominal imaging of kidneys was performed. FINDINGS: Right kidney: The right kidney measures 10.3 cm in length. There is normalcortical thickness. No echogenic stones, cyst or hydronephrosis seen. Noperinephric fluid collection. Left kidney: The left kidney measures 9.0 cm in length. There are noechogenic stones, cyst or hydronephrosis. No perinephric fluid collectionseen. Bladder: Limited imaging of the bladder reveals undistended bladder.Ureteral jets are not seen. IMPRESSION: Unremarkable renal ultrasound. Undistended urinary bladder limiting evaluation. -------- FINAL REPORT -------- Dictated By: Cheko Umana Dictated Date: 09/11/2024 14:53 ET Assigned Physician: Cheko Umana Reviewed and Electronically Signed By: Cheko Umana Signed Date: 09/11/2024 15:19 ET Workstation ID: [id number] Transcribed By: Self Edit Transcribed Date: 09/11/2024 15:15 ET us Tressa HENDRICKSON IMG US PROCEDURES Final Res ult * Troponin I high sensitivity (09/10/2024 1:52 PM EST) Only the most recent of4 resultswithin the time period is included. High Sensitivity Troponin I 14 <=79 ng/L LAB CHEMISTRY METHOD 09/10/2024 2:47 PM EST [facility] Blood Venous blood specimen / Unknown Venipuncture / Unknown 09/10/2024 1:52 PM EST 09/10/2024 2:23 PM EST Narrative [facility] - 09/10/2024 2:47 PM EST High levels of biotin in samples may falsely decrease hsTroponin values. ??Use caution when interpreting hsTroponin results in patients taking biotin who exhibit renal impairment (eGFR <60) or in patients taking more than 20 mg/day of biotin. Marce HENDRICKSON LAB BLOOD ORDERABLES Final Re sult [facility] [address] [place] [address], [place] [phone] * (ABNORMAL) B-type natriuretic peptide (09/05/2024 2:42 PM EST) [facility] BNP 212(H) <=100 pcg/mL LAB CHEMISTRY METHOD 09/05/2024 4:00 PM EST [facility] Blood Venous blood specimen / Unknown Venipuncture / Unknown 09/05/2024 2:42 PM EST 09/05/2024 3:06 PM EST Ant Ambrocio DO LAB BLOOD ORDERABLES Final Result Performing Organization Address City/[facility]/ZIP Co de Phone Number [facility] [address] [place] [address], [place] [phone] * ECG-Outside (09/05/2024) Provider Onbase ECG ORDERABLES Final Result * Lipid panel (11/23/2023) [facility] LDL/HDL Ratio 2 0 - 4 Triglycerides 74 0 - 150 mg/dL Cholesterol 124 0 - 200 mg/dL HDL 51 >=40 mg/dL LDL Cholesterol 59 0 - 100 mg/dL Blood Venous blood specimen / Unknown Historical Provider LAB BLOOD ORDERABLES Haydee l Result * Hm Diabetes Eye Exam (10/11/2023) [facility] Diabetes: Annual Retina Eye Exam abstracted Historical Provider HEALTH MAINTENANCE Final Result from Last 3 Months or Most Recently Relevant to Health Maintenance 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 09/10/2024 Insurance [employer] Advance Directives Documents on File Type Date Recorded Patient Ward Maid Expl anation Advance Directives and Living Will 10/17/2024 9:12 AM Advance Directives and Living Will 10/17/2024 8:00 AM MOLST Advance Directives and Living Will 10/12/2024 2:21 PM MOLST Health Care Decision (hx) 03/21/2024 Lexy garcia ADVANCE DIRECTIVE Health Care Decision (hx) 10/28/2023 AD CROWE DIRECTIVE * No CPR/Do Not Intubate (Latest Code Status on File) Date Activated Date Inactivated Comments 10/11/2024 7:47 PM 10/16/2024 5:33 PM This code sta tus was ascertained in the following way: Code status discussion: discussion with patient To update the patient's code status, place a code status order. Do not modify or discontinue any currently active code status orders. * No CPR/Do Not Intubate Date Activated Date Inactivated Comments 10/01/2024 3:50 PM 10/02/2024 3:01 PM This code status was ascertained in the following way: Code status discussion: discussion with healthcare home office representative * Full Code - Confirmed Date Activated Date Inactivated Comments 09/28/2024 12:48 AM 10/01/2024 3:50 PM This code status was ascertained in the following way: Code status discussion: discussion with patient To update the patient's code status, place a code status order. Do not modify or discontinue any currently active code status orders. * Full Code - Default Date Activated Date Inactivated Comments 09/27/2024 10:28 PM 09/28/2024 12:48 AM This is order is used when code status has not been discussed with the patient, or code status is otherwise unknown/unconfirmed To update the patient's code status, place a code status order. Do not modify or discontinue any currently active code status orders. * Full Code - Confirmed Date Activated Date Inactivated Comments 09/10/2024 9:01 PM 09/15/2024 4:07 PM This code s tatus was ascertained in the following way: Code status discussion: discussion with patient To update the patient's code status, place a code status order. Do not modify or discontinue any currently active code status orders. Healthcare Agents on File Name Relationship Healthcare Agent Relationship Communication [facility] Care Agent Care Teams Banking Attorney Relationship Specialty Start Date End Date Sharmila Hanson MD [address] [place] [address] PCP - General 10/12/1990
--- OUTSIDE RECORDS SUMMARY | 2024-11-17 12:52 | XMS_ITS | Encounter Summary ---
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); Unspecified systolic (congestive) heart failure (CMS/HCC) Social History Tobacco Use Types Packs/Day Years Used Date Smoking Tobacco: Never Smokeless Tobacco: Never Alcohol Use Standard Drinks/Week Comments Not Currently 0 (1 standard drink = 0.6 oz pur e alcohol) Interpersonal Safety Answer Date Record ed Physical Abuse 09/28/2024 Verbal Abuse 09/28/2024 Sex and Gender Information Value Date Recorded [...] 1:00 PM EDT Office Visit Adult Medicine [address] [phone] Sharmila Hanson MD [address] [place] [id number] 02/23/2025 9:00 AM EDT Ancillary Procedure [address] [phone] 02/23/2025 10:30 AM EDT Office Visit [address] [phone] Irais Agarwal MD [address] [place] [address], [place] [address] documented as of this encounter Procedures Procedure Name Priority Date/Time Associated Diagnosis Comments COMPLETE BLOOD COUNT Routine 10/03/2024 5:30 AM EST Heart failure, unspecified (CMS/HCC) 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) Unspecified systolic (congestive) heart failure (CMS/HCC) HEMOGLOBIN A1C Routine 10/03/2024 5:30 AM EST Heart failure, unspecified (CMS/HCC) 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 169 mg/dL LAB CHEMISTRY METHOD 10/03/2024 1:44 PM EST [facility] Blood Venous blood specimen / Unknown Venipuncture / Unknown 10/03/2024 5:30 AM EST 10/03/2024 9:43 AM EST us Roxana Murray MD LAB BLOOD ORDERABLES Fin al Result [facility] [address] [place] [address], * (ABNORMAL) Comprehensive metabolic panel (10/03/2024 5:30 AM EST) Sodium 133 133 - 145 mmol/L LAB CHEMISTRY METHOD 10/03/2024 10:56 AM [facility] Potassium 4.1 3.5 - 5.5 mmol/L LAB CHEMISTRY METHOD 10/03/2024 10:56 AM [facility] Chloride 98 96 - 110 mmol/L LAB CHEMISTRY METHOD 10/03/2024 10:56 AM [facility] CO2 27 21 - 32 mmol/L LAB CHEMISTRY METHOD 10/03/2024 10:56 AM [facility] Anion Gap 8 3 - 11 LAB CHEMISTRY METHOD 10/03/2024 10:56 AM [facility] Glucose 98 70 - 100 mg/dL LAB CHEMISTRY METHOD 10/03/2024 10:56 AM [facility] BUN 15 5 - 25 mg/dL LAB CHEMISTRY METHOD 10/03/2024 10:56 AM [facility] Creatinine 0.90 0.70 - 1.30 mg/dL LAB CHEMISTRY METHOD 10/03/2024 10:56 AM [facility] eGFR 83 >=60 mL/min/1. 73m2 LAB CHEMISTRY METHOD 10/03/2024 10:56 AM [facility] Comment:Calculation based on the??Chronic Kidney Disease Epidemiology Collaboration (CKD-EPI) equation refit??without adjustment for race. BUN/Creatinine Ratio 16.7 LAB CHEMISTRY METHOD 10/03/2024 10:56 AM [facility] Calcium 9.9 8.5 - 10.5 mg/dL LAB CHEMISTRY METHOD 10/03/2024 10:56 AM [facility] AST (SGOT) 19 10 - 42 unit/L LAB CHEMISTRY METHOD 10/03/2024 10:56 AM [facility] ALT (SGPT) 25 10 - 60 unit/L LAB CHEMISTRY METHOD 10/03/2024 10:56 AM [facility] Alkaline Phosphatase 281(H) 42 - 121 unit/L LAB CHEMISTRY METHOD 10/03/2024 10:56 AM [facility] Total Protein 6.3 6.0 - 8.0 g/dL LAB CHEMISTRY METHOD 10/03/2024 10:56 AM [facility] Albumin 2.9(L) 3.2 - 5.0 g/dL LAB CHEMISTRY METHOD 10/03/2024 10:56 AM [facility] Total Bilirubin 0.7 0.0 - 1.4 mg/dL LAB CHEMISTRY METHOD 10/03/2024 10:56 AM [facility] Blood Venous blood specimen / Unknown Venipuncture / Unknown 10/03/2024 5:30 AM EST 10/03/2024 9:43 AM EST us Roxana Murray MD LAB BLOOD ORDERABLES Fin al Result [facility] [address] [place] [address], * (ABNORMAL) Complete blood count (10/03/2024 5:30 AM EST) WBC 8.7 4.8 - 10.8 K/mcL LAB HEMETOLOGY METHOD 10/03/2024 10:51 AM [facility] RBC 3.70(L) 4.50 - 5.50 M/mcL LAB HEMETOLOGY METHOD 10/03/2024 10:51 AM [facility] Hemoglobin 11.1(L) 13.5 - 17.5 g/dL LAB HEMETOLOGY METHOD 10/03/2024 10:51 AM [facility] Hematocrit 34.1(L) 42.0 - 54.0 % LAB HEMETOLOGY METHOD 10/03/2024 10:51 AM [facility] MCV 91.7 79.0 - 98.0 FL LAB HEMETOLOGY METHOD 10/03/2024 10:51 AM [facility] MCH 29.8 27.0 - 32.0 pcg LAB HEMETOLOGY METHOD 10/03/2024 10:51 AM EST [facility] MCHC 32.6 32.0 - 37.0 g/dL LAB HEMETOLOGY METHOD 10/03/2024 10:51 AM EST [facility] RDW 13.8 11.0 - 15.0 % LAB HEMETOLOGY METHOD 10/03/2024 10:51 AM EST [facility] Platelets 321 130 - 400 K/mcL LAB HEMETOLOGY METHOD 10/03/2024 10:51 AM EST [facility] MPV 9.0 7.0 - 11.0 FL LAB HEMETOLOGY METHOD 10/03/2024 10:51 AM EST [facility] NRBC 0.0 <1.0 % LAB HEMETOLOGY METHOD 10/03/2024 10:51 AM EST [facility] NRBC Absolute 0.00 <0.10 K/mcL LAB HEMETOLOGY METHOD 10/03/2024 10:51 AM [facility] Blood Venous blood specimen / Unknown Venipuncture / Unknown 10/03/2024 5:30 AM EST 10/03/2024 9:43 AM EST us Roxana Murray MD LAB BLOOD ORDERABLES Fin al Result [facility] [address] [place] [address], documented in this encounter Visit Diagnoses Diagnosis Heart failure, unspecified (CMS/HCC) Heart failure, unspecified 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
--- OUTSIDE RECORDS SUMMARY | 2024-11-17 12:52 | XMS_ITS | Encounter Summary ---
Author Organization [facility] Address [address] [place] [address] Care Team Providers Care Business Consult Name Role Phone Sharmila Hanson MD Primary Care Provider [phone] Encounter Details Date Type Department Care Team (Late st Contact Info) Description 10/06/2024 Lab Requisition [facility] - Main Lab [address] [place] [address] Roxana Murray MD [address] [phone] Diabetes mellitus due to underlying condition with [...] PM EDT Office Visit Adult Medicine [address] [phone] Sharmila Hanson MD [address] [place] [address] 02/23/2025 9:00 AM EDT Ancillary Procedure [address] [phone] 02/23/2025 10:30 AM EDT Office Visit [address] [phone] Irais Agarwal MD [address] [place] [phone] documented as of this encounter Procedures Procedure Name Priority Date/Time Associated Diagnosis Comments COMPLETE BLOOD COUNT Routine 10/09/2024 7:14 AM EST Diabetes mellitus due to underlying condition with diabetic chronic kidney disease ([facility]/HCC) Essential (primary) hypertension Urinary tract infection, site not specified COMPREHENSIVE METABOLIC PANEL Routine 10/09/2024 7:14 AM EST Diabetes mellitus due to underlying condition with diabetic chronic kidney disease ([facility]/HCC) Essential (primary) hypertension Urinary tract infection, site not specified documented in this encounter Results * (ABNORMAL) Comprehensive metabolic panel (10/09/2024 7:14 AM EST) Sodium 130(L) 133 - 145 mmol/L LAB CHEMISTRY METHOD 10/09/2024 12:32 PM [facility] Potassium 4.3 3.5 - 5.5 mmol/L LAB CHEMISTRY METHOD 10/09/2024 12:32 PM [facility] Chloride 98 96 - 110 mmol/L LAB CHEMISTRY METHOD 10/09/2024 12:32 PM [facility] CO2 28 21 - 32 mmol/L LAB CHEMISTRY METHOD 10/09/2024 12:32 PM [facility] Anion Gap 4 3 - 11 LAB CHEMISTRY METHOD 10/09/2024 12:32 PM [facility] Glucose 101(H) 70 - 100 mg/dL LAB CHEMISTRY METHOD 10/09/2024 12:32 PM [facility] BUN 12 5 - 25 mg/dL LAB CHEMISTRY METHOD 10/09/2024 12:32 PM [facility] Creatinine 0.99 0.70 - 1.30 mg/dL LAB CHEMISTRY METHOD 10/09/2024 12:32 PM [facility] eGFR 74 >=60 mL/min/1. 73m2 LAB CHEMISTRY METHOD 10/09/2024 12:32 PM [facility] Comment:Calculation based on the??Chronic Kidney Disease Epidemiology Collaboration (CKD-EPI) equation refit??without adjustment for race. BUN/Creatinine Ratio 12.1 LAB CHEMISTRY METHOD 10/09/2024 12:32 PM [facility] Calcium 10.2 8.5 - 10.5 mg/dL LAB CHEMISTRY METHOD 10/09/2024 12:32 PM [facility] AST (SGOT) 19 10 - 42 unit/L LAB CHEMISTRY METHOD 10/09/2024 12:32 PM [facility] ALT (SGPT) 23 10 - 60 unit/L LAB CHEMISTRY METHOD 10/09/2024 12:32 PM [facility] Alkaline Phosphatase 272(H) 42 - 121 unit/L LAB CHEMISTRY METHOD 10/09/2024 12:32 PM [facility] Total Protein 6.9 6.0 - 8.0 g/dL LAB CHEMISTRY METHOD 10/09/2024 12:32 PM [facility] Albumin 3.3 3.2 - 5.0 g/dL LAB CHEMISTRY METHOD 10/09/2024 12:32 PM [facility] Total Bilirubin 0.8 0.0 - 1.4 mg/dL LAB CHEMISTRY METHOD 10/09/2024 12:32 PM [facility] Blood Venous blood specimen / Unknown Venipuncture / Unknown 10/09/2024 7:14 AM EST 10/09/2024 11:04 AM EST us Roxana Murray MD LAB BLOOD ORDERABLES Fin al Result [facility] [address] [place] [address], * (ABNORMAL) Complete blood count (10/09/2024 7:14 AM EST) WBC 10.2 4.8 - 10.8 K/mcL LAB HEMETOLOGY METHOD 10/09/2024 11:46 AM [facility] RBC 3.90(L) 4.50 - 5.50 M/mcL LAB HEMETOLOGY METHOD 10/09/2024 11:46 AM [facility] Hemoglobin 11.7(L) 13.5 - 17.5 g/dL LAB HEMETOLOGY METHOD 10/09/2024 11:46 AM [facility] Hematocrit 37.4(L) 42.0 - 54.0 % LAB HEMETOLOGY METHOD 10/09/2024 11:46 AM [facility] MCV 95.2 79.0 - 98.0 FL LAB HEMETOLOGY METHOD 10/09/2024 11:46 AM [facility] MCH 29.8 27.0 - 32.0 pcg LAB HEMETOLOGY METHOD 10/09/2024 11:46 AM [facility] MCHC 31.3(L) 32.0 - 37.0 g/dL LAB HEMETOLOGY METHOD 10/09/2024 11:46 AM [facility] RDW 14.8 11.0 - 15.0 % LAB HEMETOLOGY METHOD 10/09/2024 11:46 AM [facility] Platelets 335 130 - 400 K/mcL LAB HEMETOLOGY METHOD 10/09/2024 11:46 AM [facility] MPV 8.4 7.0 - 11.0 FL LAB HEMETOLOGY METHOD 10/09/2024 11:46 AM [facility] NRBC 0.0 <1.0 % LAB HEMETOLOGY METHOD 10/09/2024 11:46 AM [facility] NRBC Absolute 0.00 <0.10 K/mcL LAB HEMETOLOGY METHOD 10/09/2024 11:46 AM [facility] Blood Venous blood specimen / Unknown Venipuncture / Unknown 10/09/2024 7:14 AM EST 10/09/2024 11:04 AM EST us Roxana Murray MD LAB BLOOD ORDERABLES Fin al Result [facility] [address] [place] [address], documented in this encounter Visit Diagnoses Diagnosis Diabetes mellitus [...] as of this encounter Care Teams Business Consult Relationship Specialty Start Date End Date Sharmila Hanson MD [address] [place] [address] PCP - General 10/12/1992 documented as of this encounter
--- OUTSIDE RECORDS SUMMARY | 2024-11-17 12:52 | XMS_ITS | Encounter Summary ---
Author Organization [facility] Address [address] [place] [address] Care Team Providers Care Director Of Strategy & Mobile Name Role Phone Sharmila Hanson MD Primary Care Provider [phone] Reason for Visit * Reason Onset Date Comments faxed order 10/02/2024 Chaitanya STERN Nurs ing/PT Encounter Details Date Type Department Care Team ([facility] Contact Info) Description 10/02/2024 Telephone Adult Medicine [address] [phone] Alexia Ivan MA faxed order (Chaitanya STERN Nursing/PT ) Social History Tobacco Use Types Packs/Day [...] Progress Notes * Alexia Ivan MA - 10/02/2024 12:03 PM EST Received orders from [facility]. Please sign and fax to [phone] documented in this encounter Plan of Treatment Upcoming Encounters Date Type Department Care Team (Late st Contact Info) Description 01/01/2025 1:00 PM EDT Office Visit Adult Medicine [facility] [address] [place] [phone] Sharmila Hanson MD [address] [place] [address] 02/23/2025 9:00 AM EDT Ancillary Procedure Pulmonol - [place] [address] [place] [address] 02/23/2025 10:30 AM EDT Office Visit Pulmonolgy - [place] [address] [place] [address] Irais Agarwal MD [address] [facility] [address] [place] [address] documented as of this encounter Visit Diagnoses Not on filedocumented in this encounter 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
--- OUTSIDE RECORDS SUMMARY | 2024-11-17 12:52 | XMS_ITS | Data Portability ---
Author Organization [place] - [facility], [facility] Address [address] [address] Care Team Providers Care Homicide Detective Name Role Phone BELEM ONEILL Referring Provider [phone] Assessment Encounter Date Assessment Date Assessment LastModified by Organization Details LastModified Time 06/30/2024 06/30/2024 88 year old male presents for cerumen impaction. Cerumen impaction removed bilaterally. Bilateral TMs are intact. Follow up in 6 months [place] Not available 06/30/2024 14:53:44 Plan of Treatment Reminders Order Date Submit Date Provider Last Modified By Organization Details Last Modified Time Details Appointments Establish ed 15 2024 01:15P M HAVEN GARCIA PA-C Not available Not available Not available Lab None recorded. Referral None recorded. Procedures None recorded. Surgeries None recorded. Imaging None recorded. Medication Orders None recorded. Patient TargetsNo targets recorded. Patient InstructionsNo instructions recorded. Reason for Referral None Reported. Problems Name Problem SNOMED Code Status Onset Date Resolution Date Notes Provider Name and Address Organization Details Recorded Time Sensorine ural hearing loss of bilateral ears 189179934 Active 2021 Sensorine ural hearing loss, bilateral ; Note: Date Diagnosed : 07/02/2022 9:53 AM (H90.3) Not Available [facility] 02:56:43 Posterior rhinorrhe a [id number] Active 2021 Postnasal drip; Note: Date Diagnosed : 07/02/2022 9:53 AM (R09.82) Not Available [facility] 02:56:42 Impacted cerumen of bilateral ears 48122085740 25699 Active 2021 Impacted cerumen, bilateral ; Note: Date Diagnosed : 07/02/2022 9:53 AM (H61.23) Not Available [facility] 4 02:56:42 Problem Notes None recorded. Procedures Surgical History Date Name Laterality Status Provider Name and Address Organization Details Recorded Time 4 Cerumen removal without microscope bilat completed HAVEN GARCIA PA-C [address] [place] [address],[address], [address], [facility] - [facility] 06/30/2024 14:52:09 Imaging Results None recorded. Procedure Notes None recorded. Medical Equipment None Reported. Medications Name Sig Start Date Stop Date Status Note LastModified by Organization Details LastModified Time Prescript ion - Prior Authoriza tion Request active Script Copy/Sugey or Auth^Scr ipt Copy/Sugey or Auth_ Not Available Not Available Not Available amoxicill in 500 mg capsule TAKE 4 CAPSULES BY MOUTH TAKE 1 HOUR PRIOR TO APPT. active Not Available Not Available No t Available furosemid e 40 mg tablet TAKE 1 TABLET BY MOUTH EVERY DAY active Not Available Not Available No t Available silver sulfadiaz ine 1 % topical cream APPLY ON SHOULDER WOUND DAILY. active Not Available Not Available No t Available lamotrigi ne 200 mg tablet active Medicati on ID: [id number] B rand Name: lamotrig ine Send Method: E-Prescr ibed Sub s Allowed: subs OK Medic ationGen ericName : lamotrig ine Not Available Not Available Not Available atorvasta tin 10 mg tablet active Medicati on ID: [id number] B rand Name: atorvast atin Sen d Method: E-Prescr ibed Sub s Allowed: subs OK Medic ationGen ericName : atorvast atin Not Available Not Available Not Available cefpodoxi me 200 mg tablet TAKE 1 TABLET BY MOUTH TWICE A DAY active Not Available Not Available No t Available metoprolo l succinate ER 50 mg tablet,ex tended release 24 hr TAKE 1 TABLET BY MOUTH EVERY DAY active Not Available Not Available No t Available prednison e 20 mg tablet TAKE 2 TABLETS BY MOUTH DAILY active Not Available Not Available No t Available alendrona te 70 mg tablet active Medicati on ID: [id number] B rand Name: alendron ate Send Method: E-Prescr ibed Sub s Allowed: subs OK Medic ationGen ericName : alendron ate Not Available Not Available Not Available triamcino lone acetonide 0.5 % topical ointment APPLY 1 FILM TOPICALL Y 2 TIMES DAILY FOR 14 DAYS. active Not Available Not Available No t Available clopidogr el 75 mg tablet TAKE 1 TABLET BY MOUTH EVERY DAY active Not Available Not Available No t Available ciproflox acin 500 mg tablet TAKE 1 TABLET BY MOUTH EVERY 12 HOURS active Not Available Not Available No t Available sulfameth oxazole 800 mg-trimet hoprim 160 mg tablet TAKE 1 TABLET BY MOUTH TWICE A DAY active Not Available Not Available No t Available acetamino phen 500 mg tablet TAKE 1 TABLET BY MOUTH THREE TIMES A DAY active Not Available Not Available No t Available amoxicill in 500 mg tablet active Not Available Not Available Not Available ofloxacin 0.3 % ear drops 4 drop into right ear twice a day 07/07 completed Medicati on ID: [id number] D uration Value: 5 Brand Name: ofloxaci n Send Method: E-Prescr ibed Sub s Allowed: subs OK Speci al Instruct ion: 4 drops to right ear only. Twice daily for 5 days. Me dication GenericN agustina: ofloxaci n Not Available Not Available Not Available tamsulosi n 0.4 mg capsule active Medicati on ID: [id number] B rand Name: tamsulos in Send Method: E-Prescr ibed Sub s Allowed: subs OK Medic ationGen ericName : tamsulos in Not Available Not Available Not Available timolol maleate 0.25 % eye drops active Medicati on ID: [id number] B rand Name: timolol maleate Send Method: E-Prescr ibed Sub s Allowed: subs OK Medic ationGen ericName : timolol maleate Not Available Not Available Not Available cephalexi n 500 mg capsule TAKE 1 CAPSULE BY MOUTH FOUR TIMES A DAY FOR 10 DAYS active Not Available Not Available No t Available lisinopri l 10 mg tablet active Medicati on ID: [id number] B rand Name: lisinopr il Send Method: E-Prescr ibed Sub s Allowed: subs OK Medic ationGen ericName : lisinopr il Not Available Not Available Not Available furosemid e 20 mg tablet TAKE 1 TABLET BY MOUTH EVERY DAY active Not Available Not Available No t Available metoprolo l succinate ER 25 mg tablet,ex tended release 24 hr TAKE 1 TABLET BY MOUTH EVERY DAY active Not Available Not Available No t Available nystatin 100,000 unit/gram topical powder APPLY 2 G TOPICALL Y 2 TIMES DAILY. active Not Available Not Available No t Available cefuroxim e axetil 500 mg tablet TAKE 1 TABLET BY MOUTH EVERY 12 HOURS active Not Available Not Available No t Available finasteri de 5 mg tablet active Medicati on ID: [id number] B rand Name: finaster corrina Send Method: E-Prescr ibed Sub s Allowed: subs OK Medic ationGen ericName : finaster corrina Not Available Not Available Not Available amoxicill in 875 mg-potass ium clavulana te 125 mg tablet TAKE 1 TABLET BY MOUTH TWICE A DAY active Not Available Not Available No t Available Adult Low Dose Aspirin 81 mg tablet,de layed release active Medicati on ID: [id number] B rand Name: Adult Low Dose Aspirin Send Method: E-Prescr ibed Sub s Allowed: subs OK Medic ationGen ericName : Adult Low Dose Aspirin Not Available Not Available Not Available nitrofura ntoin monohydra te/macroc rystals 100 mg capsule TAKE 1 CAPSULE BY MOUTH TWICE A DAY active Not Available Not Available No t Available lidocaine 5 % topical ointment APPLY [...] SNOMED-CT Code Diagnosis ICD10 Code Diagnosis Note [id number] ESSENCE BAKER MD [facility] [address] [phone] 06/30/2024 13:25:12 06/30/2024 14:11:27 Impacted cerumen of bilateral ears [id number] H61.23 Health Concerns Section Related Observation LastModified by Organization Detai ls LastModified Time None Recorded Concern Status LastModified by Organization Details LastModified Time None Recorded Advance Directives Directive None Recorded Payers Encounter Date Sequence Insurance Name Policy Number Policy Garcia Covered Member ID Garcia Member ID Guarantor Name 06/30/2024 1 [facility] (POS) [id number] Earle Rodrigues [id number] Earle Rodrigues Notes Date Note Type Note Provider Name and Address Organization Details Recorded Time 06/30/2024 text/html 88-year-old male presents for cerumen removal. No concerns today. ESSENCE BAKER MD [address] [place] [address], [phone] 07/04/2024 10:48:14
--- NOTE | 2024-11-17 13:02 | AM.OFFWIN_ITS ---
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 Patient Tobacco Use Status: Never used Tobacco Allergies nitrofurantoin [From Macrobid] Adverse Reaction (Severe, Verified 11/17/24 13:09) Anaphylaxis lidocaine Adverse Reaction (Intermediate, Verified 11/17/24 13:09) Hives Do you need a note to return to daycare/school/sports/work: No HPI HPI Comments History of Present Illness Details History of Present Illness - The patient is an 89-year-old male pre senting with concerns regarding penile enlargement and discharge. - Penile enlargement was noted approxima tely one week ago, accompanied by white and yellow discharge. - Attempts were made to reach the [facility] urologist for antibiotics all week but they have not heard back; previous incidents required antibiotic treatment at a rehabilitation facility. Notable allergy to macrobid. - Chronic Butler catheterization is noted , with previous self-catheterization practices disrupted by physical limitations. - There is no reported fever accompanyin g these symptoms. - Last change of butler was at rehab on , denies visiting nurse coming to his home to check on Butler. Physical Exam General: Cooperative, healthy appearing, comfortable, no acute distress and well developed Orientation: Patient oriented x3 Limitations: wheelchair use, chronic butler Head: Normal to inspection Ears: Hearing grossly normal bilaterally Nose: Normal Nxternal nose present Face and sinus: ormal facial exam Eyes: Appearance normal, both eyes and all related structures Neck: Normal visual inspection and Yes full ROM Respiratory: Normal respiratory effort and able to speak in complete sentences. Cardiovascular: Regular rate and rhythm. Skin: No rashes or lesions noted. Neuro: Patient oriented x3 Extremities: Normal to inspection [facility] Social History Patient Tobacco Use Status: Never used Tobacco Review of Systems Const All systems reviewed & are unremarkable except as noted in HPI and below Physical Exam Vital Signs: Last Vital Signs Temp 98.1 F 11/17/24 13:09 BP 110/70 11/17/24 13:09 Assessment & Plan Assessment & Plan (1) Penile discharge, without blood: Code(s): R36.0 - Urethral discharge without blood Plan: I was able to call the patient's urologist and get him an appointment this afternoon so they can address his issue properly. This approach aims to remove the existing catheter to provide a clear urine sample for microbiological analysis, ensuring proper culture and sensitivity results for tailored antibiotic therapy. Patient in his daughter were thankful and they will head straight to their office in [place]. [facility] [address], [address] [place] [address],[phone] Patient was informed and verbally consented to the use of an ambient scribe for clinic note documentation during this visit. Coding Level of Care Code New Pt Level 4 (68126) Diagnoses Penile discharge, without blood R36.0
[2024-11-17 13:09] VITALS: BP 110/70; PULSE 92; TEMP 36.7; O2SAT 94
== END 2024-11-17 13:34 | disposition home or self-care (01) ==
PROVIDERS: PCP Internal Medicine; Visit Provider Physician Assistant
DX: R36.0 Urethral discharge without blood (principal)

== ENCOUNTER → 2024-11-17 12:27 | Outpatient (BNVA) | payer OTHER, SELFPAY | PROVIDERS: PCP Internal Medicine | DX: R36.0 Urethral discharge without blood (principal) | CPT/HCPCS: 99202 ==

== ENCOUNTER 2025-10-03 11:41 | Outpatient (AMB) | payer OTHER, SELFPAY ==
[2025-10-03 12:19] VITALS: BP 102/60; PULSE 101; O2SAT 97; BMI 28.4
--- NOTE | 2025-10-03 12:19 | AM.OFFWIN_ITS ---
Intake Vital Signs 10/03/25 12:19 Height 5 ft 9 in Weight 192 lb BMI 28.4 BP 102/60 Blood Pressure Location Lt brachial Position Sitting Pulse 101 H Pulse Source Pulse Oximeter Pulse Oximetry (%) 97 Oxygen Delivery Method Room Air Intake Visit Reasons: EP Crackling sound in lungs Intake Note: Patient presents c/o crinkling in lungs per [facility] yesterday. Patient Tobacco Use Status: Never used Tobacco Allergies nitrofurantoin (From Macrobid) Adverse Reaction (Severe, Verified 10/03/25 12:23) Anaphylaxis lidocaine Adverse Reaction (Intermediate, Verified 10/03/25 12:23) Hives HPI HPI Comments History of Present Illness Details He presents with for lung check He has hx of CHF and a visiting nurse Visiting nurse recommended he be seen in office for lung check because she heard crackles yesterday Pt denies SOB, CP, fever or chills Admits to an occasional cough which is baseline for him He denies medicine for symptoms currently. Pt walks with walker at home. Has some SOB with ambulation that is unchanged Denies lower leg swelling or pain PFSH Social History Patient Tobacco Use Status: Never used Tobacco Review of Systems Const Denies body aches, Denies chills and Denies fever(s) ENT Denies nasal congestion and Denies sore throat Card Denies chest pain, Denies dyspnea (denies at rest) and Reports dyspnea on exertion (baseline) Resp Reports cough, Denies dyspnea (denies at rest) and Reports dyspnea on exertion (baseline) Physical Exam Exam Exam: General: Non-toxic, NAD. Speaking full sentences while sitting in wheelchair Skin: Warm dry throughout. Lower extremities are symmetrical in size and shape bilaterally. Eye: EOMI Respiratory: No accessory muscle use or stridor. Minimal crackles noted at bilateral bases without wheeze or rhonchi. Cardiac: RRR. No calf ttp bilaterally. No pitting edema Neurology: Alert. No aphasia or facial droop. Psych: Good mood and affect Vital Signs: Last Vital Signs Pulse 101 H 10/03/25 12:19 BP 102/60 10/03/25 12:19 Pulse Ox 97 10/03/25 12:19 Oxygen Delivery Method Room Air 10/03/25 12:19 BMI result Body Mass Index 28.4 Assessment & Plan Assessment & Plan (1) Lung crackles: Code(s): R09.89 - Other specified symptoms and signs involving the circulatory and respiratory systems Plan: Patient seen and evaluated. He has no cold/cough symptoms consistent with PNA Most likely chest xray will be + fluid but there is no concern for aute CHF at this time as O2 is stable, he is not SOB at rest and has no leg edema. Discussed ER s/s like CP, SOB, weakness, dizziness, syncope, high fever which warrant immediate eval and pt and gave verbal understanding We will call him with xray findings results/additional management If PNA + antibiotic warranted If fluid, he appears stable and it is recommended that he have close follow up for med management with PCP [place] [facility]. Patient gave verbal understanding and had no additional questions or concerns at time of discharge Orders: Orders XR chest 2V Today R09.89 - Other specified symptoms and signs involving the circulatory and respiratory systems Coding Level of Care Code Est Pt Level 3 (80593) Diagnoses Lung crackles R09.89
--- OUTSIDE RECORDS SUMMARY | 2025-10-03 13:24 | XMS_ITS | Encounter Summary ---
Author Organization [facility] Address [address] [place] [address] Care Team Providers Care Meter Tester Polyphase Name Role Phone Sharmila Hanson MD Primary Care Provider [phone] Encounter Details Date Type Department Care Team (Late st Contact Info) Description 10/17/2024 Lab Requisition [facility] - Main Lab [address] [facility] [place] [address] Roxana Murray MD [address] [id number] Urinary tract infection, site not specified Social History Tobacco Use Types Packs/Day Years Used Date Smoking Tobacco: Never Smokeless Tobacco: Never Alcohol Use Standard Drinks/Week Comments Not Currently 0 (1 standard drink = 0.6 oz pur e alcohol) Interpersonal Safety Answer Date Record ed Physical Abuse Unrecognized value 10/11/2024 Verbal Abuse Unrecognized value 10/11/2024 Sex and Gender Information Value Date [...] documented in this encounter Plan of Treatment Not on file documented as of this encounter Procedures Procedure [...] mmol/L LAB CHEMISTRY METHOD 10/17/2024 9:09 AM [facility] Potassium 4.1 3.5 - 5.5 mmol/L LAB CHEMISTRY METHOD 10/17/2024 9:09 AM [facility] Chloride 101 96 - 110 mmol/L LAB CHEMISTRY METHOD 10/17/2024 9:09 AM [facility] CO2 23 21 - 32 mmol/L LAB CHEMISTRY METHOD 10/17/2024 9:09 AM [facility] Anion Gap 8 3 - 11 LAB CHEMISTRY METHOD 10/17/2024 9:09 AM [facility] Glucose 104(H) 70 - 100 mg/dL LAB CHEMISTRY METHOD 10/17/2024 9:09 AM [facility] BUN 12 5 - 25 mg/dL LAB CHEMISTRY METHOD 10/17/2024 9:09 AM [facility] Comment:Results verified by repeat testing Creatinine 0.87 0.70 - 1.30 mg/dL LAB CHEMISTRY METHOD 10/17/2024 9:09 AM [facility] eGFR 84 >=60 mL/min/1. 73m2 LAB CHEMISTRY METHOD 10/17/2024 9:09 AM [facility] Comment:Calculation based on the Chronic Kidney Disease Epidemiology Collaboration (CKD-EPI) equation refit without adjustment for race. BUN/Creatinine Ratio 13.8 LAB CHEMISTRY METHOD 10/17/2024 9:09 AM [facility] Calcium 9.0 8.5 - 10.5 mg/dL LAB CHEMISTRY METHOD 10/17/2024 9:09 AM [facility] AST (SGOT) 15 10 - 42 unit/L LAB CHEMISTRY METHOD 10/17/2024 9:09 AM [facility] ALT (SGPT) 13 10 - 60 unit/L LAB CHEMISTRY METHOD 10/17/2024 9:09 AM [facility] Alkaline Phosphatase 156(H) 42 - 121 unit/L LAB CHEMISTRY METHOD 10/17/2024 9:09 AM [facility] Total Protein 5.8(L) 6.0 - 8.0 g/dL LAB CHEMISTRY METHOD 10/17/2024 9:09 AM [facility] Albumin 2.7(L) 3.2 - 5.0 g/dL LAB CHEMISTRY METHOD 10/17/2024 9:09 AM [facility] Total Bilirubin 0.4 0.0 - 1.4 mg/dL LAB CHEMISTRY METHOD 10/17/2024 9:09 AM [facility] Blood Venous blood specimen / Unknown Venipuncture / Unknown 10/17/2024 5:27 AM EST 10/17/2024 8:08 AM EST us Roxana Murray MD LAB BLOOD ORDERABLES Fin al Result [facility] [address] [place] [address], * (ABNORMAL) Complete blood count (10/17/2024 5:27 AM EST) WBC 7.5 4.8 - 10.8 K/mcL LAB HEMETOLOGY METHOD 10/17/2024 8:36 AM [facility] RBC 2.40(L) 4.50 - 5.50 M/mcL LAB HEMETOLOGY METHOD 10/17/2024 8:36 AM [facility] Hemoglobin 7.5(L) 13.5 - 17.5 g/dL LAB HEMETOLOGY METHOD 10/17/2024 8:36 AM [facility] Hematocrit 22.9(L) 42.0 - 54.0 % LAB HEMETOLOGY METHOD 10/17/2024 8:36 AM [facility] MCV 95.4 79.0 - 98.0 FL LAB HEMETOLOGY METHOD 10/17/2024 8:36 AM [facility] MCH 31.3 27.0 - 32.0 pcg LAB HEMETOLOGY METHOD 10/17/2024 8:36 AM [facility] MCHC 32.8 32.0 - 37.0 g/dL LAB HEMETOLOGY METHOD 10/17/2024 8:36 AM [facility] RDW 15.3(H) 11.0 - 15.0 % LAB HEMETOLOGY METHOD 10/17/2024 8:36 AM EST [facility] Platelets 337 130 - 400 K/mcL LAB HEMETOLOGY METHOD 10/17/2024 8:36 AM EST [facility] MPV 8.6 7.0 - 11.0 FL LAB HEMETOLOGY METHOD 10/17/2024 8:36 AM EST [facility] NRBC 0.0 <1.0 % LAB HEMETOLOGY METHOD 10/17/2024 8:36 AM EST [facility] NRBC Absolute 0.00 <0.10 K/mcL LAB HEMETOLOGY METHOD 10/17/2024 8:36 AM EST [facility] Blood Venous blood specimen / Unknown Venipuncture / Unknown 10/17/2024 5:27 AM EST 10/17/2024 8:08 AM EST us Roxana Murray MD LAB BLOOD ORDERABLES Fin al Result [facility] [address] [place] [address], documented in this encounter Visit Diagnoses Diagnosis Urinary tract infection, site not specified documented in this encounter Additional Health Concerns 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
--- OUTSIDE RECORDS SUMMARY | 2025-10-03 13:24 | XMS_ITS | Encounter Summary ---
Author Organization [facility] Address [address] [place] [address] Care Team Providers Care Heater Helper Forge Name Role Phone Sharmila Hanson MD Primary Care Provider [phone] Encounter Details Date Type Department Care Team (Late st Contact Info) Description 10/21/[address] [facility] - Main Lab [address] [facility] [place] [address] Roxana Murray MD [address] [phone] Urinary tract infection, site not specified; Essential [...] mmol/L LAB CHEMISTRY METHOD 10/23/2024 2:15 PM EST [facility] Potassium 4.4 3.5 - 5.5 mmol/L LAB CHEMISTRY METHOD 10/23/2024 2:15 PM EST [facility] Chloride 96 96 - 110 mmol/L LAB CHEMISTRY METHOD 10/23/2024 2:[address] [facility] CO2 27 21 - 32 mmol/L LAB CHEMISTRY METHOD 10/23/2024 2:[address] [facility] Anion Gap 7 3 - 11 LAB CHEMISTRY METHOD 10/23/2024 2:[address] [facility] Glucose 134(H) 70 - 100 mg/dL LAB CHEMISTRY METHOD 10/23/2024 2:[address] [facility] BUN 17 5 - 25 mg/dL LAB CHEMISTRY METHOD 10/23/2024 2:[address] [facility] Creatinine 1.20 0.70 - 1.30 mg/dL LAB CHEMISTRY METHOD 10/23/2024 2:[address] [facility] eGFR 59(L) >=60 mL/min/1. 73m2 LAB CHEMISTRY METHOD 10/23/2024 2:[address] [facility] Comment:Calculation based on the Chronic Kidney Disease Epidemiology Collaboration (CKD-EPI) equation refit without adjustment for race. BUN/Creatinine Ratio 14.2 LAB CHEMISTRY METHOD 10/23/2024 2:[address] [facility] Calcium 9.3 8.5 - 10.5 mg/dL LAB CHEMISTRY METHOD 10/23/2024 2:[address] [facility] AST (SGOT) 22 10 - 42 unit/L LAB CHEMISTRY METHOD 10/23/2024 2:[address] [facility] ALT (SGPT) 14 10 - 60 unit/L LAB CHEMISTRY METHOD 10/23/2024 2:[address] [facility] Alkaline Phosphatase 175(H) 42 - 121 unit/L LAB CHEMISTRY METHOD 10/23/2024 2:[address] [facility] Total Protein 6.6 6.0 - 8.0 g/dL LAB CHEMISTRY METHOD 10/23/2024 2:[address] [facility] Albumin 3.0(L) 3.2 - 5.0 g/dL LAB CHEMISTRY METHOD 10/23/2024 2:[address] [facility] Total Bilirubin 0.6 0.0 - 1.4 mg/dL LAB CHEMISTRY METHOD 10/23/2024 2:[address] [facility] Blood Venous blood specimen / Unknown Venipuncture / Unknown 10/23/2024 9:13 AM EST 10/23/2024 12:28 PM EST us Roxana Murray MD LAB BLOOD ORDERABLES Fin al Result [facility] [address] [place] [address], * (ABNORMAL) Complete blood count (10/23/2024 9:13 AM EST) WBC 10.4 4.8 - 10.8 K/mcL LAB HEMETOLOGY METHOD 10/23/2024 1:[address] [facility] RBC 2.80(L) 4.50 - 5.50 M/mcL LAB HEMETOLOGY METHOD 10/23/2024 1:[address] [facility] Hemoglobin 8.6(L) 13.5 - 17.5 g/dL LAB HEMETOLOGY METHOD 10/23/2024 1:[address] [facility] Hematocrit 27.2(L) 42.0 - 54.0 % LAB HEMETOLOGY METHOD 10/23/2024 1:[address] [facility] MCV 96.8 79.0 - 98.0 FL LAB HEMETOLOGY METHOD 10/23/2024 1:[address] [facility] MCH 30.6 27.0 - 32.0 pcg LAB HEMETOLOGY METHOD 10/23/2024 1:[address] [facility] MCHC 31.6(L) 32.0 - 37.0 g/dL LAB HEMETOLOGY METHOD 10/23/2024 1:27 PM EST [facility] RDW 15.7(H) 11.0 - 15.0 % LAB HEMETOLOGY METHOD 10/23/2024 1:[address] [facility] Platelets 449(H) 130 - 400 K/mcL LAB HEMETOLOGY METHOD 10/23/2024 1:[address] [facility] MPV 7.9 7.0 - 11.0 FL LAB HEMETOLOGY METHOD 10/23/2024 1:[address] [facility] NRBC 0.0 <1.0 % LAB HEMETOLOGY METHOD 10/23/2024 1:[address] [facility] NRBC Absolute 0.00 <0.10 K/mcL LAB HEMETOLOGY METHOD 10/23/2024 1:[address] [facility] Blood Venous blood specimen / Unknown Venipuncture / Unknown 10/23/2024 9:13 AM EST 10/23/2024 12:28 PM EST us Roxana Murray MD LAB BLOOD ORDERABLES Fin al Result [facility] [address] [place] [address], documented in this encounter Visit Diagnoses Diagnosis Urinary tract infection, site not specified Essential (primary) hypertension Unspecified essential hypertension documented in this encounter Additional Health Concerns 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
--- OUTSIDE RECORDS SUMMARY | 2025-10-03 13:24 | XMS_ITS | Encounter Summary ---
Author Organization [facility] Address [address] [place] [address] Care Team Providers Care Trial Judge Name Role Phone Sharmila Hanson MD Primary Care Provider [phone] Encounter Details Date Type Department Care Team (Late st Contact Info) Description 09/18/[address] [facility] - Main Lab [address] [facility] [place] [address] Roxana Murray MD [address] [phone] Urinary tract infection, site not specified; Type 2 diabetes mellitus without complications (CMS/HCC V24, CMS/HCC V28); Unspecified atrial fibrillation (CMS/HCC V24, CMS/HCC V28) Social History Tobacco Use Types Packs/Day Years Used Date Smoking Tobacco: Never Smokeless Tobacco: Never Alcohol Use Standard Drinks/Week Comments Not Currently 0 (1 standard drink = 0.6 oz pur e alcohol) Interpersonal Safety Answer Date Record ed Physical Abuse Unrecognized value 09/13/2024 Verbal Abuse Unrecognized value 09/13/2024 Sex and Gender Information Value Date [...] % LAB CHEMISTRY METHOD 09/18/2024 2:45 PM [facility] Mean Bld Glu Estim. 163 mg/dL LAB CHEMISTRY METHOD 09/18/2024 2:45 PM [facility] Blood Venous blood specimen / Unknown Venipuncture / Unknown 09/18/2024 9:29 AM EST 09/18/2024 12:25 PM EST us Roxana Murray MD LAB BLOOD ORDERABLES Fin al Result [facility] [address] [place] [address], * (ABNORMAL) Comprehensive metabolic panel (09/18/2024 9:29 AM EST) Pathologist [facility] Sodium 133 133 - 145 mmol/L LAB CHEMISTRY METHOD 09/18/2024 5:05 PM [facility] Potassium 4.7 3.5 - 5.5 mmol/L [...] [facility] Comment:Calculation based on the Chronic Kidney Disease Epidemiology Collaboration (CKD-EPI) equation refit without adjustment for race. BUN/Creatinine Ratio 15.7 LAB [...] Result [facility] [address] [place] [address], * (ABNORMAL) Complete blood count (09/18/2024 9:29 AM EST) [facility] WBC 9.7 4.8 - 10.8 K/mcL LAB HEMETOLOGY METHOD 09/18/2024 1:05 PM [facility] RBC 4.10(L) 4.50 - 5.50 M/mcL LAB HEMETOLOGY METHOD 09/18/2024 1:05 PM [facility] [...] 09/18/2024 1:05 PM [facility] RDW 13.5 11.0 - 15.0 % LAB HEMETOLOGY METHOD 09/18/2024 1:05 PM [facility] Platelets 258 130 - 400 K/mcL LAB HEMETOLOGY METHOD 09/18/2024 1:05 PM [facility] MPV 8.4 7.0 - 11.0 FL LAB HEMETOLOGY METHOD 09/18/2024 1:05 PM [facility] NRBC 0.0 <1.0 % LAB HEMETOLOGY METHOD 09/18/2024 1:05 PM [facility] NRBC Absolute 0.00 <0.10 K/mcL LAB HEMETOLOGY METHOD 09/18/2024 1:05 PM EST [facility] Blood Venous blood specimen / Unknown Venipuncture / Unknown 09/18/2024 9:29 AM EST 09/18/2024 12:25 PM EST us Roxana Murray MD LAB BLOOD ORDERABLES Fin al Result [facility] [address] [place] [address], documented in this encounter Visit Diagnoses Diagnosis Urinary tract infection, site not specified Type 2 diabetes mellitus without complications ([facility] V24, [facility] V28) Unspecified atrial fibrillation ([facility] V24, [facility] V28) documented in this encounter Additional Health Concerns 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
--- OUTSIDE RECORDS SUMMARY | 2025-10-03 13:24 | XMS_ITS | Encounter Summary ---
Author Organization [facility] Address [address] [place] [address] Care Team Providers Care Supreme Court Justice Name Role Phone Sharmila Hanson MD Primary Care Provider [phone] Encounter Details Date Type Department Care Team (Late st Contact Info) Description 10/20/2024 Lab Requisition [facility] - Main Lab [address] [facility] [place] [address] Roxana Murray MD [address] [phone] Essential (primary) hypertension; Chronic kidney disease, unspecified [...] mmol/L LAB CHEMISTRY METHOD 10/20/2024 9:42 AM EST [facility] Potassium 4.6 3.5 - 5.5 mmol/L LAB CHEMISTRY METHOD 10/20/2024 9:42 AM EST [facility] Chloride 97 96 - 110 mmol/L LAB CHEMISTRY METHOD 10/20/2024 9:42 AM [facility] CO2 26 21 - 32 mmol/L LAB CHEMISTRY METHOD 10/20/2024 9:42 AM [facility] Anion Gap 7 3 - 11 LAB CHEMISTRY METHOD 10/20/2024 9:42 AM [facility] Glucose 110(H) 70 - 100 mg/dL LAB CHEMISTRY METHOD 10/20/2024 9:42 AM [facility] BUN 16 5 - 25 mg/dL LAB CHEMISTRY METHOD 10/20/2024 9:42 AM [facility] Creatinine 1.12 0.70 - 1.30 mg/dL LAB CHEMISTRY METHOD 10/20/2024 9:42 AM [facility] eGFR 64 >=60 mL/min/1. 73m2 LAB CHEMISTRY METHOD 10/20/2024 9:42 AM [facility] Comment:Calculation based on the Chronic Kidney Disease Epidemiology Collaboration (CKD-EPI) equation refit without adjustment for race. BUN/Creatinine Ratio 14.3 LAB CHEMISTRY METHOD 10/20/2024 9:42 AM [facility] Calcium 9.2 8.5 - 10.5 mg/dL LAB CHEMISTRY METHOD 10/20/2024 9:42 AM [facility] AST (SGOT) 22 10 - 42 unit/L LAB CHEMISTRY METHOD 10/20/2024 9:42 AM [facility] ALT (SGPT) 17 10 - 60 unit/L LAB CHEMISTRY METHOD 10/20/2024 9:42 AM [facility] Alkaline Phosphatase 172(H) 42 - 121 unit/L LAB CHEMISTRY METHOD 10/20/2024 9:42 AM [facility] Total Protein 6.0 6.0 - 8.0 g/dL LAB CHEMISTRY METHOD 10/20/2024 9:42 AM [facility] Albumin 2.8(L) 3.2 - 5.0 g/dL LAB CHEMISTRY METHOD 10/20/2024 9:42 AM [facility] Total Bilirubin 0.4 0.0 - 1.4 mg/dL LAB CHEMISTRY METHOD 10/20/2024 9:42 AM [facility] Blood Venous blood specimen / Unknown Venipuncture / Unknown 10/20/2024 5:22 AM EST 10/20/2024 9:06 AM EST us Roxana Murray MD LAB BLOOD ORDERABLES Fin al Result [facility] [address] [place] [address], * (ABNORMAL) Complete blood count (10/20/2024 5:22 AM EST) WBC 9.1 4.8 - 10.8 K/mcL LAB HEMETOLOGY METHOD 10/20/2024 9:15 AM [facility] RBC 2.60(L) 4.50 - 5.50 M/[facility] LAB HEMETOLOGY METHOD 10/20/2024 9:15 AM [facility] Hemoglobin 7.8(L) 13.5 - 17.5 g/dL LAB HEMETOLOGY METHOD 10/20/2024 9:15 AM [facility] Hematocrit 24.1(L) 42.0 - 54.0 % LAB HEMETOLOGY METHOD 10/20/2024 9:15 AM [facility] MCV 94.1 79.0 - 98.0 FL LAB HEMETOLOGY METHOD 10/20/2024 9:15 AM [facility] MCH 30.5 27.0 - 32.0 pcg LAB HEMETOLOGY METHOD 10/20/2024 9:15 AM [facility] MCHC 32.4 32.0 - 37.0 g/dL LAB HEMETOLOGY METHOD 10/20/2024 9:15 AM [facility] RDW 15.7(H) 11.0 - 15.0 % LAB HEMETOLOGY METHOD 10/20/2024 9:15 AM EST [facility] Platelets 393 130 - 400 K/mcL LAB HEMETOLOGY METHOD 10/20/2024 9:15 AM EST [facility] MPV 8.4 7.0 - 11.0 FL LAB HEMETOLOGY METHOD 10/20/2024 9:15 AM EST [facility] NRBC 0.0 <1.0 % LAB HEMETOLOGY METHOD 10/20/2024 9:15 AM EST [facility] NRBC Absolute 0.00 <0.10 K/mcL LAB HEMETOLOGY METHOD 10/20/2024 9:15 AM EST [facility] Blood Venous blood specimen / Unknown Venipuncture / Unknown 10/20/2024 5:22 AM EST 10/20/2024 9:06 AM EST us Roxana Murray MD LAB BLOOD ORDERABLES Fin al Result [facility] [address] [place] [address], documented in this encounter Visit Diagnoses Diagnosis Essential (primary) hypertension Unspecified essential hypertension Chronic kidney disease, unspecified documented in this encounter Additional Health Concerns 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
--- OUTSIDE RECORDS SUMMARY | 2025-10-03 13:24 | XMS_ITS | Encounter Summary ---
Author Organization [facility] Address [address] [place] [address] Care Team Providers Care Automotive Specialty Technician Name Role Phone Sharmila Hanson MD Primary Care Provider [phone] Encounter Details Date Type Department Care Team (Late st Contact Info) Description 12/15/2024 Lab Requisition [facility] - Main Lab [address] [facility] [place] [address] Jasmina David NP [address] [facility] [address] [place] [address] Pyuria Social History Tobacco Use Types Packs/Day Years [...] hearing? Answer Date of Assessment Author No 11/24/2024 3:15 PM DARRION Teran, Sheryl Salmon RN * Are you blind or do you have serious difficulty seeing, even when wearing glasses? Answer Date of Assessment Author No 11/24/2024 3:15 PM Sheryl Luna RN * Do you have serious difficulty walking or climbing stairs? Answer Date of Assessment Author Yes 11/24/2024 3:15 PM DARRION Teran, Sheryl Salmon RN * Do you have serious difficulty dressing or bathing? Answer Date of Assessment Author No 11/24/2024 3:15 PM DARRION Teran, As yeison Salmon RN * Because of a physical, mental, or emotional condition, do you have serious difficulty doing errandsalone such as visiting the doctor? Answer Date of Assessment Author Yes 11/24/2024 3:15 PM Sheryl Luna RN documented as of this encounter Mental Status * Because of a physical, mental, or emotional condition, do you have serious difficulty concentrating, remembering, or making decisions? (5 years old or older) Answer Entry Date Author No 11/24/2024 3:15 PM Sheryl Luna RN documented in this encounter Plan of Treatment Not on file documented as of this encounter Procedures Procedure Name Priority Date/Time Associated Diagnosis Comments CULTURE URINE Routine 12/15/2024 12:00 AM EDT Pyuria documented in this encounter Results * (ABNORMAL) Culture urine (12/15/2024 12:00 AM EDT) [facility] Culture, Urine >100,000 CFU/mL Pseudomonas aeruginosa(A) ARY 12/19/2024 8:25 AM EDT [facility] Comment: The organism value for this result has been updated. These results have been appended to the previously preliminary verified report. This is an edited result. Previous organism was Gram negative bacilli on 12/17/2024 at 1021 EDT. Culture, Urine 50,000-100,000 CFU/mL Vancomycin resistant Enterococcus faecalis(A) ARY 12/19/2024 8:25 AM EDT [facility] Comment: The organism value for this result has been updated. These results have been appended to the previously preliminary verified report. Edited result: Previously reported as Enterococcus species on 12/17/2024 at 1021 EDT. Urine Urine specimen from urinary conduit / Unknown 12/15/2024 12/15/2024 6:21 PM EDT Narrative Organism Antibiotic Method Susceptibility Pseudomonas aeruginosa Piperacillin/Tazobactam ARY 8 ug/ml: Susceptible Pseudomonas aeruginosa Ceftazidime ARY 2 ug/ml: Susceptible Pseudomonas aeruginosa Meropenem ARY <=0.25 ug/ml: Susceptible Pseudomonas aeruginosa Amikacin ARY 4 ug/ml: Susceptible Pseudomonas aeruginosa Ciprofloxacin ARY >=4 ug/ml: Resistant Pseudomonas aeruginosa Levofloxacin ARY 2 ug/ml: Intermediate Pseudomonas aeruginosa Amikacin DISK DIFFUSION Pseudomonas aeruginosa Cefepime DISK DIFFUSION Susceptible Pseudomonas aeruginosa Ceftazidime DISK DIFFUSION Pseudomonas aeruginosa Ciprofloxacin DISK DIFFUSION Pseudomonas aeruginosa Levofloxacin DISK DIFFUSION Pseudomonas aeruginosa Meropenem DISK DIFFUSION Pseudomonas aeruginosa Piperacillin/Tazobactam DISK DI FFUSION Pseudomonas aeruginosa Tobramycin DISK DIFFUSION Vancomycin resistant Enterococcus faecalis Benzylpenicillin ARY 8 ug/ml: Susceptible Vancomycin resistant Enterococcus faecalis Ampicillin ARY <=2 ug/ml: Susceptible Vancomycin resistant Enterococcus faecalis Ciprofloxacin ARY >=8 ug/ml: Resistant Vancomycin resistant Enterococcus faecalis Levofloxacin ARY >=8 ug/ml: Resistant Vancomycin resistant Enterococcus faecalis Linezolid ARY 2 ug/ml: Susceptible Vancomycin resistant Enterococcus faecalis Vancomycin ARY >=32 ug/ml: Resistant Vancomycin resistant Enterococcus faecalis Tetracycline ARY >=16 ug/ml: Resistant Vancomycin resistant Enterococcus faecalis Nitrofurantoin ARY <=16 ug/ml: Susceptible Jasmina David TAX ASSOCIATE ATTORNEY LAB MICROBIOLOGY - GENERA L ORDERABLES Final Result [facility] [address] [place] [address], documented in this encounter Visit Diagnoses Diagnosis Pyuria Other nonspecific finding on examination of urine documented in this encounter Additional Health Concerns 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
--- OUTSIDE RECORDS SUMMARY | 2025-10-03 13:24 | XMS_ITS | Encounter Summary ---
Author Organization [facility] Address [address] [place] [address] Care Team Providers Care Jacker Feeder Name Role Phone Sharmila Hanson MD Primary Care Provider [phone] Encounter Details Date Type Department Care Team (Late st Contact Info) Description 12/12/2024 Billing Patient Not Present Adult Medicine [facility] [address] [place] [address] Sharmila Hanson MD [address] [place], [place] Social History Tobacco Use Types Packs/Day [...] DARRION Teran, As yeison Salmon RN * Are you blind or do you have serious difficulty seeing, even when wearing glasses? Answer Date of Assessment Author No 11/24/2024 3:15 PM DARRION Teran, Sheryl Salmon RN * Do you have serious difficulty walking or climbing stairs? 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
--- OUTSIDE RECORDS SUMMARY | 2025-10-03 13:24 | XMS_ITS | Continuity of Care Document ---
Author Organization [facility] Address [address] [place] [address] Care Team Providers Care Barrel Lapper Name Role Phone BELEM ONEILL Referring Provider Unavailable BELEM ONEILL Primary Care Provider Assessment Encounter Date Assessment Date Assessment LastModified by Organization Details LastModified Time 07/26/2025 07/26/2025 IMPRESSION: --Epilepsy; gait disorder --January 04, 2023 [...] intermittent hospital admissions for fall and/or UTI. --February 14, 2025 seizure-free on lamotrigine; intermittent falls --July 26, 2025 no seizures on lamotrigine 200 mg twice daily; a single fall, using his walker, over threshold at exit from bathroom. >>>>>>>>>>>>Octob er 2024 We agreed to make no changes in the lamotrigine. He agrees that if he is in a situation where he anticipates difficulty with the maneuver while ambulating with his walker, that he will be cautious and call his for help. >>>>>>>>>>>>February 14, 2025 We will continue lamotrigine without change. Hopefully, he and his will change his ambulation habits as detailed in HPI, with using wheelchair when she is not around. >>>>>>>>>>>>January 18, 2024 He remains seizure-free on [...] as of February 10, 2022 follow-up report. >>>>>>>>>>PLAN Earle Rodrigues July 26, 2025 CONTINUE lamotrigine 200 mg every 12 hours. CONTINUE: To use your walker outside and inside, When accompanied, otherwise using wheelchair. You may have a half a glass [...] any forgetfulness or problems with taking medications. Yet, please continue to let your manage the medications. Please take the cautious pathway and call for your for assistance if you are having trouble maneuvering with your walker at any time. Followup in 6 months, or sooner with suspicion for seizure, worse problems walking or other neurologic concerns. PLEASE BRING YOUR Benedicto Branch MD, PhD [facility] [email or web address] Not available 07/26/2025 10:53:59 Plan of Treatment Reminders Order Date Submit Date Provider Last Modified By Organization Details Last Modified Time Details Appointments FOLLOW UP EXT 2025 10:30A M Benedicto Branch MD PhD Not available Not available Not available Lab None recorded. Referral None recorded. Procedures None recorded. Surgeries None recorded. Imaging None recorded. Medication Orders lamotrigi ne 200 mg tablet 2024 025 [facility], [address] [place] [address], [id number], 07/26/2025 10:45:53 Patient TargetsNo targets recorded. Patient Instructions Encounter Date Encounter Id Patient Instructions Last Modified By Organization Details Last Modified Time 07/26/2025 [id number] [email or web address] Not available 07/26/2025 10:23:08 PREVIOUS MEDICATION He remains, since May 2015, [...] of proarrhythmia. [email or web address] He has no known heart disease, and [...] 02/2022) 2 chronic conditions; prescription medication management [email or web address] Not available 07/26/2025 10:54:05 Reason for Referral None Reported. Procedures Surgical History Date Name Laterality Status Provider Name and Address Organization Details Recorded Time 07/26/2025 DATA REVIEW completed Benedicto Barnch MD [address] [place] [address] [place], [phone], [facility] 07/26/2025 10:23:08 02/14/2025 DATA REVIEW completed Benedicto Branch MD [address] [place] [address] [place], [phone], [facility] 02/14/2025 10:57:01 07/20/2024 DATA REVIEW completed Benedicto Branch MD [address] [place], [place] [address], [phone], [facility] 07/20/2024 12:48:09 01/18/2024 DATA REVIEW completed Benedicto Branch MD [address] [place], [place] [address], [phone], [facility] 01/18/2024 12:23:04 07/19/2023 DATA REVIEW completed Benedicto Branch MD [address] [place], [place] [address], [phone], [facility] 07/19/2023 14:13:03 01/04/2023 DATA REVIEW completed Benedicto Branch MD [address] [place], [place] [address], [phone], [facility] 01/04/2023 14:44:56 02/10/2022 DATA REVIEW completed Benedicto Branch MD [address] [place], [place] [address], [phone], [facility] 02/10/2022 14:28:50 Imaging Results None recorded. Procedure [...] a day by oral route for 90 days, for seizure prevention . 2024 active Not Available Not Available Not Avai lable atorvastatin 10 mg tablet active Not Available [...] active Not Available Not Available Not Available penicillin V potassium 500 mg tablet TAKE 1 TABLET BY MOUTH 4 TIMES A DAY active Not Available Not Available No t Available triamcinolone acetonide 0.5 % topical ointment [...] mg capsule TAKE 1 CAPSULE BY MOUTH THREE TIMES A DAY FOR 7 DAYS active Not Available Not Available No [...] Not Available Not Available No t Available albuterol sulfate HFA 90 mcg/actuation aerosol inhaler INHALE 2 PUFFS INTO LUNGS EVERY 6 HOURS NEEDED FOR WHEEZE OR FOR SHORTNESS OF BREATH active Not Available Not Available No t [...] 1 CAPSULE BY MOUTH TWICE A DAY FOR 7 DAYS active Not Available Not Available No [...] Diagnosis SNOMED-CT Code Diagnosis ICD10 Code Diagnosis IMO Codes Diagnosis Note [id number] Benedicto Branch MD [facility] [address] [place] [address] [place] [address] 07/26/2025 10:18:28 07/31/2025 10:58:01 Focal onset impaired awareness epileptic seizure 207506977 G40.209 Unsteady w hen standing [id number] R26.81 Health Concerns Section Related Observation LastModified by Organization Cris nicole LastModified Time None Recorded Concern Status LastModified by Organization Details LastModified Time None Recorded Payers Encounter Date Sequence Insurance Name Policy Number Policy Garcia Covered Member ID Garcia Member ID Guarantor Name 07/26/2025 1 [facility] (O) [id number] Earle Rodrigues [id number] Earle Rodrigues Notes Date Note Type Note Provider Name and Address Organization Details Recorded Time 10/23/202 5 text/html Follow up of epilepsy. Antonio breen is accompanied by his , Pennie Rodrigues. >>>>>>>>>>>>July 26, 2025Since February 14, 2025 Neurology follow-up encounter, he again has had no seizures and he remains on unchanged lamotrigine 200 mg twice a day without side effects.His mood is good. His agrees.He does not remember any falls but his remembers one, in the bathroom, turning, while using his walker, tripping over the slight rise of the exit threshold. He did not injure himself. But they had to call the fire department as she cannot help him up in such a situation.They feel it was a freak accident. Neither feel there is any need to try to get occupational therapy home inspection to see if there is some way that risk factor could be removed.In general, he is always using his walker or in a wheelchair.He has had no other issues and he has had no changing medical conditions or medications. >>>>>>>>>>>>February 14, 2025Since July 20, 2024 Neurology follow-up encounter, he is feeling fine. He has again had no seizures and he remains on lamotrigine 200 mg twice a day without side effects.He has fallen again since July o nce in his memory in January. He hit his head, went to the emergency room, and was discharged after imaging revealed no worrisome abnormality.His remembers at least one other fall between July and now. He feels he was not using his walker in the January fall but his says that he was. The fall occurred as he was trying to turn with his walker.He has had physical therapy and they have taught him how to use his walker, including proper turning technique to minimize chance of fall.He has a wheelchair. I suggested that he use the wheelchair if he is moving from one place to another without someone in the room. To minimize falls, he should use a walker with someone close to him only, guiding and reminding him about proper turn technique. This makes sense to him and his . >>>>>>>>>>>>July 20, 2024Since 2023 Neurology follow-up encounter, [...] continued monitoring for diabetes. Benedicto Branch MD [address] [place] [address] [place], [phone], [facility] 07/26/2025 10:54:18
--- OUTSIDE RECORDS SUMMARY | 2025-10-03 13:24 | XMS_ITS | Clinical Summary ---
Author Organization [facility] Address [address] [place] [phone] Phone Care Team Providers Care Enrollment Coordinator Name Role Phone Sharmila Hanson MD Primary Care Provider [phone] Social History Tobacco Use Types Packs/Day Years Used Date Smoking Tobacco: Never Assessed Education Answer Date Recorded Are you interested in more education? Not on jacobo e 01/29/2023 Are you concerned about learning? Not on file 01/29/2023 No 01/29/2023 No 01/29/2023 Digital Access Answer Date Recorded No 03/01/2023 No 03/01/2023 No 03/01/2023 Reliable internet access at home? Not on file 03/01/2023 Device with a working camera? Not on file Sex and Gender Information Value Date Recorded Sex Assigned at Not on file Legal Sex Male 11:46 PM EDT Gender Identity Not on file Sexual Orientation Not on file Plan of Treatment Health Maintenance Due Date Last Done Comments DEPRESSION SCREENING 1949 RSV VACCINE (1 - 1-dose 75+ series) 2012 ZOSTER VACCINES (2 of 3) 08/03/2012 06/08/2012 INFLUENZA VACCINE (#1) 2025 , 07/04/2020, 06/09/2019, Additional history exists COVID-19 VACCINE ( - 2024- season) 2025 12/19/2020 Adult Td,Tdap Booster 07/15/2025 07/15/2015, 004 PNEUMOCOCCAL VACCINES (50+ years) Completed 01/15/2016, 07/23/2004 HEPATITIS A VACCINES Aged Out No long er eligible based on patient's age to complete this topic HIB VACCINES Aged Out No longer eligi ble based on patient's age to complete this topic MENINGOCOCCAL VACCINES (ACWY) Aged Out No longer eligible based on patient's age to complete this topic MENINGOCOCCAL VACCINES (B) Aged Out N o longer eligible based on patient's age to complete this topic Medical Devices Not on file Insurance [facility] Care Teams Enrollment Coordinator Relationship Specialty Start Date End Date Sharmila Hanson MD [address] [place] [address] PCP - General Internal Medicine 01/18/18 Additional Source Comments The information contained in this document represents components of the legal health record. It is not the complete legal health record.[facility]
--- OUTSIDE RECORDS SUMMARY | 2025-10-03 13:24 | XMS_ITS | Encounter Summary ---
Author Organization [facility] Address [address] [place] [address] Care Team Providers Care Warper Creeler Name Role Phone Sharmila Hanson MD Primary Care Provider [phone] Encounter Details Date Type Department Care Team (Late st Contact Info) Description 11/12/2024 Lab Requisition [facility] - Main Lab [address] [facility] [place] [address] Roxana Murray MD [address] [address] Essential (primary) hypertension; Urinary tract infection, site [...] documented as of this encounter Care Teams Warper Creeler Relationship Specialty Start Date End Date Sharmila Hanson MD [address] [place] [address] PCP - General 10/12/1992 documented as of this encounter
--- OUTSIDE RECORDS SUMMARY | 2025-10-03 13:24 | XMS_ITS | Encounter Summary ---
Author Organization [facility] Address [address] [place] [address] Care Team Providers Care Supervisor [employer] Name Role Phone Sharmila Hanson MD Primary Care Provider [phone] Encounter Details Date Type Department Care Team (Late st Contact Info) Description 11/03/2024 Lab Requisition [facility] - Main Lab [address] [facility] [place] [address] Roxana Murray MD [address] [phone] Urinary tract infection, site not specified; Essential [...] 11/06/2024 1:40 PM EST [facility] Potassium 4.4 3.5 - 5.5 mmol/L LAB CHEMISTRY METHOD 11/06/2024 1:40 PM EST [facility] Chloride 98 96 - 110 mmol/L LAB CHEMISTRY METHOD 11/06/2024 1:40 PM [facility] CO2 24 21 - 32 mmol/L LAB CHEMISTRY METHOD 11/06/2024 1:40 PM [facility] Anion Gap 10 3 - 11 LAB CHEMISTRY METHOD 11/06/2024 1:40 PM [facility] Glucose 169(H) 70 - 100 mg/dL LAB CHEMISTRY METHOD 11/06/2024 1:40 PM [facility] BUN 18 5 - 25 mg/dL LAB CHEMISTRY METHOD 11/06/2024 1:40 PM [facility] Creatinine 0.99 0.70 - 1.30 mg/dL LAB CHEMISTRY METHOD 11/06/2024 1:40 PM [facility] eGFR 74 >=60 mL/min/1. 73m2 LAB CHEMISTRY METHOD 11/06/2024 1:40 PM [facility] Comment:Calculation based on the Chronic Kidney Disease Epidemiology Collaboration (CKD-EPI) equation refit without adjustment for race. BUN/Creatinine Ratio 18.2 LAB CHEMISTRY METHOD 11/06/2024 1:40 PM [facility] Calcium 9.7 8.5 - 10.5 mg/dL LAB CHEMISTRY METHOD 11/06/2024 1:40 PM [facility] AST (SGOT) 24 10 - 42 unit/L LAB CHEMISTRY METHOD 11/06/2024 1:40 PM [facility] ALT (SGPT) 21 10 - 60 unit/L LAB CHEMISTRY METHOD 11/06/2024 1:40 PM [facility] Alkaline Phosphatase 216(H) 42 - 121 unit/L LAB CHEMISTRY METHOD 11/06/2024 1:40 PM [facility] Total Protein 7.1 6.0 - 8.0 g/dL LAB CHEMISTRY METHOD 11/06/2024 1:40 PM [facility] Albumin 3.1(L) 3.2 - 5.0 g/dL LAB CHEMISTRY METHOD 11/06/2024 1:40 PM [facility] Total Bilirubin 0.4 0.0 - 1.4 mg/dL LAB CHEMISTRY METHOD 11/06/2024 1:40 PM [facility] Blood Venous blood specimen / Unknown 11/06/2024 8:31 AM EST 11/06/2024 11:12 AM EST us Roxana Murray MD LAB BLOOD ORDERABLES Fin al Result [facility] [address] [place] [address], * (ABNORMAL) Complete blood count (11/06/2024 8:31 AM EST) WBC 7.5 4.8 - 10.8 K/mcL LAB HEMETOLOGY METHOD 11/06/2024 12:37 PM [facility] RBC 3.10(L) 4.50 - 5.50 M/mcL LAB HEMETOLOGY METHOD 11/06/2024 12:37 PM [facility] Hemoglobin 9.2(L) 13.5 - 17.5 g/dL LAB HEMETOLOGY METHOD 11/06/2024 12:37 PM [facility] Hematocrit 29.4(L) 42.0 - 54.0 % LAB HEMETOLOGY METHOD 11/06/2024 12:37 PM [facility] MCV 96.1 79.0 - 98.0 FL LAB HEMETOLOGY METHOD 11/06/2024 12:37 PM [facility] MCH 30.1 27.0 - 32.0 pcg LAB HEMETOLOGY METHOD 11/06/2024 12:37 PM [facility] MCHC 31.3(L) 32.0 - 37.0 g/dL LAB HEMETOLOGY METHOD 11/06/2024 12:37 PM [facility] RDW 14.7 11.0 - 15.0 % LAB HEMETOLOGY METHOD 11/06/2024 12:37 PM EST [facility] Platelets 414(H) 130 - 400 K/mcL LAB HEMETOLOGY METHOD 11/06/2024 12:37 PM EST [facility] MPV 8.0 7.0 - 11.0 FL LAB HEMETOLOGY METHOD 11/06/2024 12:37 PM EST [facility] NRBC 0.0 <1.0 % LAB HEMETOLOGY METHOD 11/06/2024 12:37 PM EST [facility] NRBC Absolute 0.00 <0.10 K/mcL LAB HEMETOLOGY METHOD 11/06/2024 12:37 PM [facility] Blood Venous blood specimen / Unknown 11/06/2024 8:31 AM EST 11/06/2024 11:12 AM EST us Roxana Murray MD LAB BLOOD ORDERABLES Fin al Result [facility] [address] [place] [address], documented in this encounter Visit Diagnoses Diagnosis Urinary tract infection, site not specified Essential (primary) hypertension Unspecified essential hypertension documented in this encounter 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
--- OUTSIDE RECORDS SUMMARY | 2025-10-03 13:24 | XMS_ITS | Encounter Summary ---
Author Organization [facility] Address [address] [place] [address] Care Team Providers Care Supervisor [employer] Name Role Phone Sharmila Hanson MD Primary Care Provider [phone] Encounter Details Date Type Department Care Team (Late st Contact Info) Description 10/13/2024 Lab Requisition [facility] - Main Lab [address] [place] [address] Roxana Murray MD [address] [phone] Diabetes mellitus due to underlying condition with diabetic chronic kidney disease (CMS/HCC V24, CMS/HCC V28); Essential (primary) hypertension; Urinary tract infection, site [...] underlying condition with diabetic chronic kidney disease (CMS/[facility] V24, [facility] V28) Essential (primary) hypertension Unspecified essential hypertension Urinary tract infection, site not specified documented in this encounter 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
--- OUTSIDE RECORDS SUMMARY | 2025-10-03 13:24 | XMS_ITS | Data Portability ---
Author Organization [place] - [facility], Allergy Address [address] [address] Care Team Providers Care Language Path Name Role Phone BELEM ONEILL Referring Provider Assessment Encounter Date Assessment Date Assessment LastModified by Organization Details LastModified Time 06/30/2024 06/30/2024 88 year old male presents for cerumen impaction. Cerumen impaction removed bilaterally. Bilateral TMs are intact. Follow up in 6 months [email or web address] Not available 06/30/2024 14:53:44 12/28/2024 12/28/2024 89 year old male presents for cerumen impaction. Cerumen impaction removed bilaterally. Bilateral TMs are intact. Follow up in 6 months [email or web address] Not available 12/28/2024 13:02:19 06/28/2025 06/28/2025 89 year old male presents for cerumen impaction. Cerumen impaction removed bilaterally. Bilateral TMs are intact. Follow up in 6 months [email or web address] Not available 06/28/2025 13:01:09 Plan of Treatment Reminders Order Date Submit Date Provider Last Modified By Organization Details Last Modified Time Details Appointments Establish ed 15 2025 01:15P M MADHAVI CABRERA Not available Not available Not available Lab [...] Sensorine ural hearing loss of bilateral ears [id number] Active 2021 Sensorine ural hearing loss, bilateral ; Note: Date Diagnosed : 07/02/2022 9:53 AM (H90.3) Not Available [facility] 4 02:56:43 Posterior rhinorrhe a [id number] Active 2021 Postnasal drip; Note: Date Diagnosed : 07/02/2022 9:53 AM (R09.82) Not Available [facility] 4 02:56:42 Impacted cerumen of bilateral ears [id number] 02164 Active 2021 Impacted cerumen, bilateral ; Note: Date Diagnosed : 07/02/2022 9:53 AM (H61.23) HAVEN GARCIA PA-C [address] [place] [address],[address], [address] , [facility] - [facility] 5 13:01:09 Problem Notes None recorded. Procedures Surgical History Date Name Laterality Status Provider Name and Address Organization Details Recorded Time 5 Cerumen removal without microscope bilat completed HAVEN GARCIA PA-C [address] [place] [address],[address], [address], [facility] - [facility] 06/28/2025 13:01:05 5 Cerumen removal without microscope bilat completed HAVEN GARCIA PA-C [address] [place] [address],[address], [address], [facility] - [facility] 12/28/2024 13:02:04 4 Cerumen removal without microscope bilat completed HAVEN GARCIA PA-C [address] [place] [address],[address], [address], [facility] - [facility] 06/30/2024 14:52:09 Imaging Results None recorded. Procedure [...] 200 mg tablet active Medicati on ID: [id number] B rand Name: lamotrig ine Send Method: E-Prescr ibed Sub s Allowed: subs OK Medic ationGen ericName : lamotrig ine Not Available Not Available Not Available atorvasta tin 10 mg tablet active Medicati on ID: [id number] B rand Name: atorvast atin Sen d [...] 70 mg tablet active Medicati on ID: [id number] B rand Name: alendron ate Send Method: E-Prescr ibed Sub s Allowed: subs OK Medic ationGen ericName : alendron ate Not Available Not Available Not Available penicilli n V potassium 500 mg tablet TAKE 1 TABLET BY MOUTH 4 TIMES A DAY active Not Available Not Available No t Available triamcino lone acetonide 0.5 % topical ointment APPLY 1 FILM TOPICALL Y 2 TIMES DAILY FOR 14 DAYS. active Not Available Not Available No t Available clopidogr el 75 mg tablet TAKE 1 TABLET BY MOUTH EVERY DAY active Not Available Not Available No t Available ciproflox acin 500 mg tablet TAKE 1 TABLET BY MOUTH TWICE A DAY 06/25 completed Not Available Not Available Not Available sulfameth oxazole 800 mg-trimet hoprim 160 [...] a day 07/07 completed Medicati on ID: [id number] D uration Value: 5 Brand Name: ofloxaci n Send Method: E-Prescr ibed Sub s Allowed: subs OK Speci al Instruct ion: 4 drops to right ear only. Twice daily for 5 days. Me dication GenericN agustina: ofloxaci n Not Available Not Available Not Available tamsulosi n 0.4 mg capsule active Medicati on ID: [id number] B rand Name: tamsulos in Send Method: E-Prescr ibed Sub s Allowed: subs OK Medic ationGen ericName : tamsulos in Not Available Not Available Not Available timolol maleate 0.25 % eye drops active Medicati on ID: [id number] B rand Name: timolol maleate Send Method: E-Prescr ibed Sub s Allowed: subs OK Medic ationGen ericName : timolol maleate Not Available Not Available Not Available cephalexi n 500 mg capsule TAKE 1 CAPSULE BY MOUTH THREE TIMES A DAY FOR 7 DAYS active Not Available Not Available No t Available lisinopri l 10 mg tablet active Medicati on ID: [id number] B rand Name: lisinopr il Send Method: [...] No t Available albuterol sulfate HFA 90 mcg/actua tion aerosol inhaler INHALE 2 PUFFS INTO LUNGS EVERY 6 HOURS NEEDED FOR WHEEZE OR FOR SHORTNES S OF BREATH active Not Available Not Available No t Available finasteri de 5 mg tablet active Medicati on ID: [id number] B rand Name: finaster corrina Send Method: [...] tablet,de layed release active Medicati on ID: [id number] B rand Name: Adult Low Dose Aspirin [...] Available Not Available No t Available Vitals Date Recorded Body height Body mass index (BMI) Body weight Provider Name and Address Organization Details Last Updated DateTime 12/28/2024 177.8 cm 25.4 kg/m2 89940.85 g Brittney Pace [facility] 12/28/2024 13:28:12 Date Recorded Body height Body mass index (BMI) Body weight Provider Name and Address Organization Details Last Updated DateTime 06/28/2025 177.8 cm 25.4 kg/m2 70543.85 g Nayeli Rojas [facility] 06/28/2025 13:02:28 Social History None recorded. Functional Status None recorded. Mental Status None recorded. Family History Nothing Reported. Medical History No medical history recorded. Past Encounters Encounter ID Performer Location Encounter Start Date Encounter Closed Date Diagnosis/Indication Diagnosis SNOMED-CT Code Diagnosis ICD10 Code Diagnosis IMO Codes Diagnosis Note [id number] HAVEN GARCIA PA-C [facility] [address] [address] 06/30/2024 13:25:12 06/30/2024 14:11:27 Impacted cerumen of bilateral ears [id number] 936202 H61.23 [id number] HAVEN GARCIA PA-C [facility] [address] [place] [address] 12/28/2024 13:01:18 12/28/2024 13:43:17 Impacted cerumen of bilateral ears [id number] 136862 H61.23 [id number] HAVEN GARCIA PA-C [facility] [address] [facility] [place] [address] 06/28/2025 12:40:38 06/28/2025 13:12:05 Impacted cerumen of bilateral ears [id number] 101308 H61.23 Health Concerns Section Related Observation LastModified by Organization Detai ls LastModified Time None Recorded Concern Status LastModified by Organization Details LastModified Time None Recorded Advance Directives Directive None Recorded Payers Insurance Date Sequence Insurance Name Policy Number Policy Garcia Covered Member ID Garcia Member ID Guarantor Name 06/28/2025 1 [facility] HEALTH PLAN - FAMILY HEALTH PLAN (POS) [id number] Earle Rodrigues [id number] Earle Rodrigues Notes Date Note Type Note Provider Name and Address Organization Details Recorded Time 06/30/2024 text/html ROS as noted in the [facility] 88-year-old male presents for cerumen removal. No concerns today. ESSENCE BAKER MD [address] [place] [address], [address], [place] [facility] 07/04/2024 10:48:14 12/28/2024 text/html ROS as noted in the [facility] 89-year-old male presents for cerumen removal. No concerns today. HARI ALCANTARA MD [address] [place] [address], [address], [place] [facility] 12/29/2024 10:10:32 06/28/2025 text/html ROS as noted in the [facility] 89-year-old male presents for cerumen removal. No concerns today. JACKSON RUBIO MD [address] [place] [address], [address], [place] [facility] 06/28/2025 16:25:15
--- OUTSIDE RECORDS SUMMARY | 2025-10-03 13:24 | XMS_ITS | Encounter Summary ---
Author Organization [facility] Address [address] [place] [address] Care Team Providers Care Fence Repairman Name Role Phone Sharmila Hanson MD Primary Care Provider [phone] Encounter Details Date Type Department Care Team (Late st Contact Info) Description 10/28/2024 Lab Requisition [facility] - Main Lab [address] [facility] [place] [address] Roxana Murray MD [address] [phone] Urinary tract infection, site not specified; Essential [...] mmol/L LAB CHEMISTRY METHOD 10/30/2024 1:51 PM EST [facility] Potassium 4.2 3.5 - 5.5 mmol/L LAB CHEMISTRY METHOD 10/30/2024 1:51 PM EST [facility] Chloride 99 96 - 110 mmol/L LAB CHEMISTRY METHOD 10/30/2024 1:51 PM [facility] CO2 25 21 - 32 mmol/L LAB CHEMISTRY METHOD 10/30/2024 1:51 PM [facility] Anion Gap 8 3 - 11 LAB CHEMISTRY METHOD 10/30/2024 1:51 PM [facility] Glucose 192(H) 70 - 100 mg/dL LAB CHEMISTRY METHOD 10/30/2024 1:51 PM [facility] BUN 13 5 - 25 mg/dL LAB CHEMISTRY METHOD 10/30/2024 1:51 PM [facility] Creatinine 1.01 0.70 - 1.30 mg/dL LAB CHEMISTRY METHOD 10/30/2024 1:51 PM [facility] eGFR 72 >=60 mL/min/1. 73m2 LAB CHEMISTRY METHOD 10/30/2024 1:51 PM [facility] Comment:Calculation based on the Chronic Kidney Disease Epidemiology Collaboration (CKD-EPI) equation refit without adjustment for race. BUN/Creatinine Ratio 12.9 LAB CHEMISTRY METHOD 10/30/2024 1:51 PM [facility] Calcium 9.5 8.5 - 10.5 mg/dL LAB CHEMISTRY METHOD 10/30/2024 1:51 PM [facility] AST (SGOT) 29 10 - 42 unit/L LAB CHEMISTRY METHOD 10/30/2024 1:51 PM [facility] ALT (SGPT) 19 10 - 60 unit/L LAB CHEMISTRY METHOD 10/30/2024 1:51 PM [facility] Alkaline Phosphatase 220(H) 42 - 121 unit/L LAB CHEMISTRY METHOD 10/30/2024 1:51 PM [facility] Total Protein 6.9 6.0 - 8.0 g/dL LAB CHEMISTRY METHOD 10/30/2024 1:51 PM [facility] Albumin 3.0(L) 3.2 - 5.0 g/dL LAB CHEMISTRY METHOD 10/30/2024 1:51 PM [facility] Total Bilirubin 0.5 0.0 - 1.4 mg/dL LAB CHEMISTRY METHOD 10/30/2024 1:51 PM [facility] Blood Venous blood specimen / Unknown Venipuncture / Unknown 10/30/2024 9:50 AM EST 10/30/2024 11:47 AM EST us Roxana Murray MD LAB BLOOD ORDERABLES Fin al Result [facility] [address] [place] [address], * (ABNORMAL) Complete blood count (10/30/2024 9:50 AM EST) WBC 8.9 4.8 - 10.8 K/mcL LAB HEMETOLOGY METHOD 10/30/2024 2:03 PM [facility] RBC 2.90(L) 4.50 - 5.50 M/mcL LAB HEMETOLOGY METHOD 10/30/2024 2:03 PM [facility] Hemoglobin 8.7(L) 13.5 - 17.5 g/dL LAB HEMETOLOGY METHOD 10/30/2024 2:03 PM [facility] Hematocrit 28.4(L) 42.0 - 54.0 % LAB HEMETOLOGY METHOD 10/30/2024 2:03 PM [facility] MCV 99.0(H) 79.0 - 98.0 FL LAB HEMETOLOGY METHOD 10/30/2024 2:03 PM [facility] MCH 30.3 27.0 - 32.0 pcg LAB HEMETOLOGY METHOD 10/30/2024 2:03 PM [facility] MCHC 30.6(L) 32.0 - 37.0 g/dL LAB HEMETOLOGY METHOD 10/30/2024 2:03 PM EST [facility] RDW 15.6(H) 11.0 - 15.0 % LAB HEMETOLOGY METHOD 10/30/2024 2:03 PM [facility] Platelets 454(H) 130 - 400 K/mcL LAB HEMETOLOGY METHOD 10/30/2024 2:03 PM [facility] MPV 7.8 7.0 - 11.0 FL LAB HEMETOLOGY METHOD 10/30/2024 2:03 PM [facility] NRBC 0.0 <1.0 % LAB HEMETOLOGY METHOD 10/30/2024 2:03 PM [facility] NRBC Absolute 0.00 <0.10 K/mcL LAB HEMETOLOGY METHOD 10/30/2024 2:03 PM [facility] Blood Venous blood specimen / Unknown Venipuncture / Unknown 10/30/2024 9:50 AM EST 10/30/2024 11:47 AM EST us Roxana Murray MD LAB BLOOD ORDERABLES Fin al Result [facility] [address] [place] [address], documented in this encounter Visit Diagnoses Diagnosis Urinary tract infection, site not specified Essential (primary) hypertension Unspecified essential hypertension documented in this encounter Additional 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
--- OUTSIDE RECORDS SUMMARY | 2025-10-03 13:24 | XMS_ITS | Clinical Summary ---
Author Organization [facility] Prior to 03/03/[address] [place] [address] Care Team Providers Care Drivers' Cash Clerk Name Role Phone Sharmila Hanson MD Primary Care Provider [phone] Allergies Active Allergy Reactions Criticality Noted Date [...] 1-dose 75+ series) 2012 Influenza Vaccine (#1) 2025 6, 07/15/2015, 08/14/2014, Additional history exists Pneumococcal Vaccine Completed 01/15/2016, 07/23/20 04 Hepatitis B Vaccines Aged Out No long er eligible based on patient's age to complete this topic RSV Ped < 20 months Aged Out No longe r eligible based on patient's age to complete this topic Care Teams Drivers' Cash Clerk Relationship Specialty Start Date End Date Sharmila Hanson MD PCP - General Internal Medicine 07/07/17
--- OUTSIDE RECORDS SUMMARY | 2025-10-03 13:24 | XMS_ITS | Encounter Summary ---
Author Organization [facility] Address [address] [place] [address] Phone Care Team Providers Care Real Estate Broker Name Role Phone Sharmila Hanson MD Primary Care Provider Reason for Referral * Physical Therapy (Within 1 month) - Closed Specialty Diagnoses / Procedures Referred By Senthil randhawa Referred To Contact Physical Therapy Diagnoses Encounter for rehabilitation gait instability Procedures physical therapy Benedicto Branch MD, PhD Phone: tel: fax: mailto:[email or web address] Olivier Patton, PT Phone: tel: mailto: Referral ID Status Reason Start Date Expiration Date Visits Re quested Visits Authorized [id number] Closed 02/15/2018 10/03/2018 17 17 Encounter Details Date Type Department Care Team (Latest Contact Info) Description 01/28/2018 Transcribe Orders [facility] [address] [place] [phone] Fabiola Schulte [address] [place] [phone] [email or web address] Encounter for rehabilitation (Primary Dx) Social History Tobacco Use Types Packs/Day Years Used Date Smoking Tobacco: Never Assessed Sex and Gender Information Value Date Recorded Sex Assigned at Not on file Legal Sex Male 11:46 PM EDT Gender Identity Not on file Sexual Orientation Not on file documented as of this encounter Plan of Treatment Not on file documented as of this encounter Procedures Procedure Name Priority Date/Time Associated Diagnosis Comments AMB REFERRAL TO [facility] PHYSICAL THERAPY Routine 02/17/2018 8:21 AM EDT Encounter for rehabilitation documented in this encounter Results * Ambulatory referral to [facility] Physical Therapy (02/17/2018 8:21 AM EDT) Benedicto Branch MD, PhD AMB [facility] REFERRALS Final Result documented in this encounter Visit Diagnoses Diagnosis Encounter for rehabilitation- Primary documented in this encounter Care Teams Real Estate Broker Relationship Specialty Start Date End Date Sharmila Hanson MD [address] [place] [address] PCP - General Internal Medicine 01/18/18 documented as of this encounter Additional Source Comments The information contained in this document represents components of the legal health record. It is not the complete legal health record.[facility]
--- OUTSIDE RECORDS SUMMARY | 2025-10-03 13:24 | XMS_ITS | Encounter Summary ---
Author Organization [facility] Address [address] [place] [address] Care Team Providers Care Loan Assistant Name Role Phone Sharmila Hanson MD Primary Care Provider [phone] Encounter Details Date Type Department Care Team (Late st Contact Info) Description 12/01/2024 Billing Patient Not Present Adult Medicine [facility] [address] [place], [place] [address], [place] [phone] Sharmila Hanson MD [address] [place], [place] Social History Tobacco Use Types Packs/Day [...] documented as of this encounter Care Teams Loan Assistant Relationship Specialty Start Date End Date Sharmila Hanson MD [address] [place] [address] PCP - General 10/12/1992 documented as of this encounter
--- OUTSIDE RECORDS SUMMARY | 2025-10-03 13:25 | XMS_ITS | Encounter Summary ---
Author Organization [facility] Address [address] [place] [address] Care Team Providers Care Mandrel Maker Name Role Phone Sharmila Hanson MD Primary Care Provider [phone] Encounter Details Date Type Department Care Team (Late st Contact Info) Description 10/03/[address] [facility] - Main Lab [address] [place] [address] Roxana Murray MD [address] [phone] Heart failure, unspecified (CMS/HCC V24, CMS/HCC V28); 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 V24, CMS/HCC V28); Unspecified systolic (congestive) heart failure (CMS/HCC V24, CMS/HCC V28) Social History Tobacco Use Types Packs/Day Years Used Date Smoking Tobacco: Never Smokeless Tobacco: Never Alcohol Use Standard Drinks/Week Comments Not Currently 0 (1 standard drink = 0.6 oz pur e alcohol) Interpersonal Safety Answer Date Record ed Physical Abuse Unrecognized value 09/28/2024 Verbal Abuse Unrecognized value 09/28/2024 Sex and Gender Information Value Date [...] complications (CMS/HCC) Unspecified systolic (congestive) heart failure ([facility]/HCC) documented in this encounter Results * (ABNORMAL) Hemoglobin A1c (10/03/2024 5:30 AM EST) Pathologist [facility] Hemoglobin A1C 7.5(H) <6.5 % LAB CHEMISTRY METHOD 10/03/2024 1:44 PM EST [facility] Mean Bld Glu Estim. 169 mg/dL LAB CHEMISTRY METHOD 10/03/2024 1:44 PM EST [facility] Blood Venous blood specimen / Unknown Venipuncture / Unknown 10/03/2024 5:30 AM EST 10/03/2024 9:43 AM EST us Roxana Murray MD LAB BLOOD ORDERABLES Fin al Result [facility] [address] [place] [address], * (ABNORMAL) Comprehensive metabolic panel (10/03/2024 5:30 AM EST) [facility] Sodium 133 133 - 145 mmol/L LAB CHEMISTRY METHOD 10/03/2024 10:[address] [facility] Potassium 4.1 3.5 - 5.5 mmol/L LAB CHEMISTRY METHOD 10/03/2024 10:[address] [facility] Chloride 98 96 - 110 mmol/L LAB CHEMISTRY METHOD 10/03/2024 10:[address] [facility] CO2 27 21 - 32 mmol/L LAB CHEMISTRY METHOD 10/03/2024 10:[address] [facility] Anion Gap 8 3 - 11 LAB CHEMISTRY METHOD 10/03/2024 10:[address] [facility] Glucose 98 70 - 100 mg/dL LAB CHEMISTRY METHOD 10/03/2024 10:[address] [facility] BUN 15 5 - 25 mg/dL LAB CHEMISTRY METHOD 10/03/2024 10:[address] [facility] Creatinine 0.90 0.70 - 1.30 mg/dL LAB CHEMISTRY METHOD 10/03/2024 10:[address] [facility] eGFR 83 >=60 mL/min/1. 73m2 LAB CHEMISTRY METHOD 10/03/2024 10:[address] [facility] Comment:Calculation based on the Chronic Kidney Disease Epidemiology Collaboration (CKD-EPI) equation refit without adjustment for race. BUN/Creatinine Ratio 16.7 LAB CHEMISTRY METHOD 10/03/2024 10:[address] [facility] Calcium 9.9 8.5 - 10.5 mg/dL LAB CHEMISTRY METHOD 10/03/2024 10:[address] [facility] AST (SGOT) 19 10 - 42 unit/L LAB CHEMISTRY METHOD 10/03/2024 10:[address] [facility] ALT (SGPT) 25 10 - 60 unit/L LAB CHEMISTRY METHOD 10/03/2024 10:[address] [facility] Alkaline Phosphatase 281(H) 42 - 121 unit/L LAB CHEMISTRY METHOD 10/03/2024 10:[address] [facility] Total Protein 6.3 6.0 - 8.0 g/dL LAB CHEMISTRY METHOD 10/03/2024 10:[address] [facility] Albumin 2.9(L) 3.2 - 5.0 g/dL LAB CHEMISTRY METHOD 10/03/2024 10:[address] [facility] Total Bilirubin 0.7 0.0 - 1.4 mg/dL LAB CHEMISTRY METHOD 10/03/2024 10:[address] [facility] Blood Venous blood specimen / Unknown Venipuncture / Unknown 10/03/2024 5:30 AM EST 10/03/2024 9:43 AM EST Roxana Murray MD LAB BLOOD ORDERABLES Fin al Result [facility] [address] [place] [address], * (ABNORMAL) Complete blood count (10/03/2024 5:30 AM EST) [facility] WBC 8.7 4.8 - 10.8 K/mcL LAB HEMETOLOGY METHOD 10/03/2024 10:51 AM EST [facility] RBC 3.70(L) 4.50 - 5.50 M/mcL LAB HEMETOLOGY METHOD 10/03/2024 10:[address] [facility] Hemoglobin 11.1(L) 13.5 - 17.5 g/dL LAB HEMETOLOGY METHOD 10/03/2024 10:[address] [facility] Hematocrit 34.1(L) 42.0 - 54.0 % LAB HEMETOLOGY METHOD 10/03/2024 10:51 AM EST [facility] MCV 91.7 79.0 - 98.0 FL LAB HEMETOLOGY METHOD 10/03/2024 10:[address] [facility] MCH 29.8 27.0 - 32.0 pcg LAB HEMETOLOGY METHOD 10/03/2024 10:[address] [facility] MCHC 32.6 32.0 - 37.0 g/dL LAB HEMETOLOGY METHOD 10/03/2024 10:[address] [facility] RDW 13.8 11.0 - 15.0 % LAB HEMETOLOGY METHOD 10/03/2024 10:[address] [facility] Platelets 321 130 - 400 K/mcL LAB HEMETOLOGY METHOD 10/03/2024 10:[address] [facility] MPV 9.0 7.0 - 11.0 FL LAB HEMETOLOGY METHOD 10/03/2024 10:[address] [facility] NRBC 0.0 <1.0 % LAB HEMETOLOGY METHOD 10/03/2024 10:51 AM EST [facility] NRBC Absolute 0.00 <0.10 K/mcL LAB HEMETOLOGY METHOD 10/03/2024 10:51 AM EST [facility] Blood Venous blood specimen / Unknown Venipuncture / Unknown 10/03/2024 5:30 AM EST 10/03/2024 9:43 AM EST us Roxana Murray MD LAB BLOOD ORDERABLES Fin al Result [facility] [address] [place] [address], documented in this encounter Visit Diagnoses Diagnosis Heart failure, unspecified (CMS/HCC V24, CMS/[facility] V28) Heart failure, unspecified 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 V24, CMS/HCC V28) Unspecified systolic (congestive) heart failure (CMS/HCC V24, CMS/HCC V28) documented in this encounter Additional Health Concerns 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
--- OUTSIDE RECORDS SUMMARY | 2025-10-03 13:25 | XMS_ITS | Clinical Summary ---
Author Organization [address] [place] [address] [place] [address] Phone Care Team Providers Care Brush Cleaner Name Role Phone Sharmila Hanson MD Primary Care Provider [phone] Allergies Active Allergy Reactions Criticality Noted Date Comments Erythromycin 01/24/2018 Lidocaine Rash High 01/26/2024 Nitrofurantoin Monohyd/M-Cryst 12/01 Medications aspirin 81 mg chewable tablet Take 1 Tablet by mouth daily. Active multivitamin (MULTIPLE VITAMINS ORAL) 1 Q.D. Activ e alendronate (FOSAMAX) 70 mg tablet Take 1 Tablet by mouth every 7 days. 4 Active cetirizine (ZyrTEC) 10 mg tablet Take 1 Tablet by mouth daily. 4 Active cholecalciferol (VITAMIN D-3) 25 mcg (1,000 unit) capsule Take 2 Caps by mouth every morning. Active lamoTRIgine (LaMICtal) 200 mg tablet Take 200 mg by mouth 2 times daily. 9 Active timolol (TIMOPTIC) 0.25 % ophthalmic solution Place 1 Drop into the right eye daily. 0 Active budesonide-form oteroL (SYMBICORT) 160-4.5 mcg/actuation inhalerIndicati ons:Moderate persistent asthma, unspecified whether complicated Inhale 2 puffs by mouth 2 (two) times a day. Rinse mouth with water after use to reduce aftertaste and incidence of candidiasis. Do not swallow. 1 each 4 Active albuterol HFA (PROAIR HFA ; PROVENTIL HFA ; VENTOLIN HFA) 90 mcg/actuation inhalerIndicati ons:Moderate persistent asthma, unspecified whether complicated Inhale 2 puffs by mouth every 6 (six) hours if needed for wheezing or shortness of breath. 3 each 3 4 Active amLODIPine (NORVASC) 2.5 mg tablet Take 1 tablet (2.5 mg total) by mouth 1 (one) time each day. 30 each 4 Active tamsulosin (FLOMAX) 0.4 mg 24 hr capsule Take 1 capsule (0.4 mg total) by mouth 1 (one) time each day. Capsules should be taken 30 minutes following the same meal each day. 90 each 5 Active metoprolol succinate (TOPROL-XL) 50 mg 24 hr tablet Take 1 tablet (50 mg total) by mouth 1 (one) time each day. Do not crush or chew. 90 each 5 Active finasteride (PROSCAR) 5 mg tablet Take 1 tablet (5 mg total) by mouth 1 (one) time each day. Do not crush, chew, or split. 90 each 5 Active freestyle (FreeStyle Lancets) 28 gauge lancets Use to check blood sugar daily 100 each 3 5 Active FreeStyle Test test strip Use to check blood sugar once daily 100 each 5 05/10/20 26 Active atorvastatin (LIPITOR) 10 mg tablet Take 1 tablet (10 mg total) by mouth at bedtime. 90 tablet 5 Active folic acid (FOLVITE) 1 mg tablet Take 1 tablet (1 mg total) by mouth 1 (one) time each day. 90 each 5 Active furosemide (LASIX) 40 mg tablet Take 1 tablet (40 mg total) by mouth 1 (one) time each day. 90 tablet 5 Active atorvastatin (LIPITOR) 10 mg tablet Take 1 tablet (10 mg total) by mouth at bedtime. 90 tablet 1 5 09/07/20 25 Discontin ued(Reord er) folic acid (FOLVITE) 1 mg tablet Take 1 tablet (1 mg total) by mouth 1 (one) time each day. 90 each 1 5 09/07/20 25 Discontin ued(Reord er) furosemide (LASIX) 40 mg tablet Take 1 tablet (40 mg total) by mouth 1 (one) time each day. 90 tablet 1 5 09/07/20 25 Discontin ued(Reord er) Active Problems Problem Noted Date Diagnosed Date DNR (do not resuscitate) 12/01/2024 Overview (12/01/2024): MOLST form completed 12/01/2024 Cardiopulmonary resuscitation - do not resuscitate Ventilation for a patient in respiratory distress - do not intubate or ventilate Transfer to hospital -transfer to hospital Dialysis - use dialysis but short term only Artificial nutrition - no artificial nutrition Artificial hydration - IV hydration but short term only Diverticulitis 10/16/2024 BPH with obstruction/lower urinary tract [...] basilar 11/20 Tubular adenoma 12/07/2012 Overview (07/05/2024): 5/08, 7/13 Hypothyroid 06/10/2011 Carpal tunnel syndrome 05/23/2011 Overview (07/05/2024): Right, moderate 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 Branch - last seizure 2007 Hyperlipidemia 11/16/2005 Overview (11/11/2024): Spondylolisthesis at L5-S1 level 11/16/2005 Resolved Problems Problem Noted Date Diagnosed Date Resolved Date Hematochezia 10/11/2024 10/16/2024 Sepsis 09/27/2024 10/02/2024 Acute cystitis without hematuria 09/10/2024 09/26/2024 Encounters Date Type Department Care Team Description 10/02/2025 Nurse Triage Adult Medicine [address] [phone] Sharmila Hanson MD 09/25/2025 Billing Patient Not Present Adult [address] [phone] Sharmila Hanson MD 08/09/2025 Telephone Adult Medicine [address] [phone] ParveenIan, DIRECTOR CLINICAL RESEARCH 08/09/2025 Telephone Adult Medicine [address] [phone] Ian Saini, DIRECTOR CLINICAL RESEARCH 08/08/2025 Telephone Adult Medicine [address] [phone] ParveenHarleenis, DIRECTOR CLINICAL RESEARCH from Last 3 Months Immunizations Immunization Administration Dates Next Due COVID-19 (Moderna/Spikevax) 12yo [...] subun it RSVpreF, 0.5mL, Preservative Free (ABRYSVO) 50yo and older or 32 through 36 wks of 06/19/2024,10/05/2023 RSV, bivalent, protein subun it RSVpreF, 0.5mL, Preservative Free (Arexvy) 50yo and older 10/05/2023 Td Tetanus diptheria (Tdvax) 7yo and older 07/15/2015,08/23/2004,01/02/1994 Td, Unspecified 08/23/2004 Tdap Tetanus diptheria acell ular pertussis (Boostrix; Adacel) 7yo and older 10/24/2023,08/23/2004 Typhoid Vaccine, Parental, Acetone-Killed, Dried ([place] ) 04/03/1996 Yellow Fever (YF-VAX) 9mo and older [...] 9 right, flail rib Fracture, thoracic vertebra [place] [place] [facility] V28) 07/08/2017 C7, T8, T9, T2, T3 07/20 DM (diabetes mellitus), type 2 with renal complications ([facility] [place], [facility] V28) 08/13/2010 DM (diabetes mellitus), type 2 with peripheral vascular complications ([facility] [place] [facility] V28) 04/10/2019 Diabetes mellitus type 2 wit h neurological manifestations ([facility] [place] [facility] [place]) 04/10/2019 Proteinuria 04/14/2019 Onychomycosis 05/24/2019 Atrial fibrillation ([facility] [place], [facility] V28) 1 SARMAD (obstructive sleep apnea) 02/10/2024 Urinary retention [...] Orientation Straight 09/27/2024 6: 59 PM EST Last Filed Vital Signs Vital Sign Reading Time Taken Comments Blood Pressure 108/56 05/10/2025 1:16 PM EDT Pulse 91 05/10/2025 1:16 PM EDT Temperature 36.1 C (97 F) 05/10/2025 1:16 PM EDT Respiratory Rate 16 05/10/2025 1:16 PM EDT Oxygen Saturation 94% 05/10/2025 1:16 PM EDT Inhaled Oxygen Concentration - - Weight 85.5 kg (188 lb 9.6 oz) 05/10/2025 1:16 P M EDT Height 172.7 cm (5' 8 ) 05/10/2025 1:16 PM EDT Body Mass Index 28.68 05/10/2025 1:16 PM EDT Plan of Treatment Health Maintenance Due Date Last Done Comments Diabetes: Annual Foot Exam 1945 IPV Vaccines (2 of 3 - Adult catch-up series) 04/01/1974 03/04/1974 Zoster Vaccines (1 of 2) 08/03/2012 06/08/2012 Social Influencers of Health Screening 09/12/2022 Depression Screening 10/04/2024 COVID-19 Vaccine ( season) 2025 06/19/2024, 12/12/2023, 06/29/2023, Additional history exists Falls Risk Assessment 10/16/2025 10/16/2024 Diabetes: Blood Sugar Control Test (HGBA1C) 11/10/2025 05/10/2025, 01/01/2025, 10/03/2024, Additional history exists Diabetes: Annual Retina Eye Exam 05/09/2026 05/09/2025, 10/11/2023 Hypertension/CHF/CAD Annual BMP Blood Test 05/10/2026 05/10/2025, 01/01/2025, 11/24/2024, Additional history exists Cholesterol Screening (Lipid Panel) 05/10/2030 05/10/2025, 11/23/2023 DTaP,Tdap,and Td Vaccines (7 - Td or Tdap) 10/24/2033 10/24/2023, 07/15/2015, 08/23/2004, Additional history exists Pneumococcal Vaccine: 50+ Years Completed 01/15/2016, 07/23/2004 RSV Immunization Adult Patients Completed 06/19/2024, 10/05/2023, 10/05/2023 Influenza Vaccine Completed 2025, , 06/04/2024, Additional history exists HIB Vaccines Aged Out No longer eligi [...] age to complete this topic Meningococcal B Vaccine Aged Out No l onger eligible based on patient's age to complete this topic RSV Immunization Patients Under 20 months Aged Out No longer eligible based on patient's age to complete this topic Varicella Vaccines Aged Out No longer eligible based on patient's age to complete this topic Procedures Procedure Name Priority Date/Time Associated Diagnosis Comments BASIC METABOLIC PANEL Routine 05/10/2025 1:44 PM EDT Primary hypertension HEMOGLOBIN A1C Routine 05/10/2025 1:44 PM EDT Diabetes mellitus type 2 with neurological manifestations ([facility] V24, [facility] V28) LIPID PANEL WITH REFLEX TO DIRECT LDL Routine 05/10/2025 1:44 PM EDT Other hyperlipidemia EXTERNAL DIABETIC RETINA EYE EXAM 05/09/2025 from Last 3 Months or Most Recently Relevant to Health Maintenance Results * Lipid panel with reflex to direct LDL (05/10/2025 1:44 PM EDT) Cholesterol 148 0 - 200 mg/dL LAB CHEMISTRY METHOD 05/10/2025 4:[address] [facility] Triglycerides 134 0 - 150 mg/dL LAB CHEMISTRY METHOD 05/10/2025 4:[address] [facility] HDL 47 >=40 mg/dL LAB CHEMISTRY METHOD 05/10/2025 4:[address] [facility] LDL Calculated 74 0 - 100 mg/dL LAB CHEMISTRY METHOD 05/10/2025 4:[address] [facility] Comment:Estimated LDL Calcul ated using equation: Total cholesterol - HDL cholesterol - (Triglycerides/5) VLDL Cholesterol Dwayne 26.8 mg/dL LAB CHEMISTRY METHOD 05/10/2025 4:[address] [facility] Non HDL Chol. (LDL+VLDL) 101 <145 mg/dL LAB CHEMISTRY METHOD 05/10/2025 4:[address] [facility] Chol/HDL Ratio 3.1 0.0 - 4.4 LAB CHEMISTRY METHOD 05/10/2025 4:[address] [facility] Blood Venous blood specimen / Unknown Venipuncture / Unknown 05/10/2025 1:44 PM EDT 05/10/2025 1:44 PM EDT us Sharmila Hanson MD LAB BLOOD ORDERABLES Final Resul t Performing Organization Address City/[facility]/ZIP Co de Phone Number [facility] [address] [place] [address], [place] [phone] * (ABNORMAL) Hemoglobin A1c (05/10/2025 1:44 PM EDT) Hemoglobin A1C 7.1(H) <6.5 % LAB CHEMISTRY METHOD 05/10/2025 9:[address] [facility] Mean Bld Glu Estim. 157 mg/dL LAB CHEMISTRY METHOD 05/10/2025 9:[address] [facility] Blood Venous blood specimen / Unknown Venipuncture / Unknown 05/10/2025 1:44 PM EDT 05/10/2025 1:44 PM EDT us Sharmila Hanson MD LAB BLOOD ORDERABLES Final Resul t Performing Organization Address City/[facility]/ZIP Co de Phone Number [facility] [address] [place] [address], [place] [phone] * (ABNORMAL) Basic metabolic panel (05/10/2025 1:44 PM EDT) Sodium 134 133 - 145 mmol/L LAB CHEMISTRY METHOD 05/10/2025 4:38 PM [facility] Potassium 4.5 3.5 - 5.5 mmol/L LAB CHEMISTRY METHOD 05/10/2025 4:38 PM [facility] Chloride 98 96 - 110 mmol/L LAB CHEMISTRY METHOD 05/10/2025 4:38 PM [facility] CO2 31 21 - 32 mmol/L LAB CHEMISTRY METHOD 05/10/2025 4:38 PM [facility] Anion Gap 5 3 - 11 LAB CHEMISTRY METHOD 05/10/2025 4:38 PM [facility] Glucose 144(H) 70 - 100 mg/dL LAB CHEMISTRY METHOD 05/10/2025 4:38 PM [facility] BUN 23 5 - 25 mg/dL LAB CHEMISTRY METHOD 05/10/2025 4:38 PM [facility] Creatinine 1.26 0.70 - 1.30 mg/dL LAB CHEMISTRY METHOD 05/10/2025 4:38 PM [facility] eGFR 55(L) >=60 mL/min/1. 73m2 LAB CHEMISTRY METHOD 05/10/2025 4:38 PM [facility] Comment:Calculation based on the Chronic Kidney Disease Epidemiology Collaboration (CKD-EPI) equation refit without adjustment for race. BUN/Creatinine Ratio 18.3 LAB CHEMISTRY METHOD 05/10/2025 4:38 PM [facility] Calcium 10.0 8.5 - 10.5 mg/dL LAB CHEMISTRY METHOD 05/10/2025 4:38 PM [facility] Blood Venous blood specimen / Unknown Venipuncture / Unknown 05/10/2025 1:44 PM EDT 05/10/2025 1:44 PM EDT us Sharmila Hanson MD LAB BLOOD ORDERABLES Final Resul t [facility] [place] [facility] [address] [place] [address], * External Diabetic Retina Eye Exam Report (05/09/2025) Anatomical Region Laterality Modality Ultrasound us Provider [facility] US PROCEDURES Final Result from Last 3 Months or Most Recently Relevant to Health Maintenance 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/2025 Insurance [employer] HE[employer] PLAN MEDICARE [facility] PL[facility] Advance Directives Documents on File Type Date Recorded Patient Metal Caster Expl anation Advance Directives and Living Will 10/17/2024 9:12 AM Advance Directives and Living Will 10/17/2024 8:00 AM MOLST Advance Directives and Living Will 10/12/2024 2:21 PM MOLST Health Care Decision (hx) 03/21/2024 Lexy Westbrook s ADVANCE DIRECTIVE Health Care Decision (hx) 10/28/2023 AD CROWE DIRECTIVE * No CPR/Do Not Intubate (Latest Code Status on File) Date Activated Date Inactivated Comments 12/01/2024 1:49 PM This code stat us was ascertained in the following way: Code status discussion: discussion with patient To update the patient's code status, place a code status order. Do not modify or discontinue any currently active code status orders. * No CPR/Do Not Intubate Date Activated Date Inactivated Comments 10/11/2024 7:47 [...] way: Code status discussion: discussion with healthcare malt liquors sales representative * Full Code - Confirmed Date [...] File Name Relationship Healthcare Agent Relationship Communication Pennie Mckinnon Spouse Health Care Agent Care Teams Brush Cleaner Relationship Specialty Start Date End Date Sharmila Hanson MD [address] [place] [address] PCP - General 10/12/1992
--- OUTSIDE RECORDS SUMMARY | 2025-10-03 13:25 | XMS_ITS | Data Portability ---
Author Organization [facility] [employer] Address [address] [facility] [address] Care Team Providers Care Classroom Paraprofessional Name Role Phone BELEM ONEILL Referring Provider Unavailable BELEM ONEILL Primary Care Provider [phone] Assessment Encounter Date Assessment Date Assessment LastModified by Organization Details LastModified Time 07/19/2023 07/19/2023 IMPRESSION: --Epilepsy; gait disorder --January [...] other neurologic concerns. Benedicto Branch MD, PhD [facility] mrossen Not available 07/19/2023 14:45:40 01/18/2024 [...] other neurologic concerns. Benedicto Branch MD, PhD [facility] mrossen Not available 01/18/2024 12:41:25 07/20/2024 [...] PLEASE BRING YOUR Benedicto Branch MD, PhD [facility] [email or web address] Not available 07/20/2024 13:11:43 02/14/2025 02/14/2025 IMPRESSION: --Epilepsy; gait disorder --January 04, 2023 [...] 14, 2025 seizure-free on lamotrigine; intermittent falls >>>>>>>>>>>>February 14, 2025 We will continue lamotrigine [...] 10, 2022 follow-up report. PLAN Earle Rodrigues February 14, 2025 CONTINUE lamotrigine 200 mg every 12 [...] PLEASE BRING YOUR Benedicto Branch MD, PhD [facility] mrossen Not available 02/14/2025 11:09:35 07/26/2025 07/26/2025 IMPRESSION: --Epilepsy; gait disorder --January [...] PLEASE BRING YOUR Benedicto Branch MD, PhD [facility] mrossen Not available 07/26/2025 10:53:59 Plan [...] lamotrigi ne 200 mg tablet 2024 025 [facility], [address] [place] [address], [id number], 07/26/2025 10:45:53 lamotrigi ne 200 mg tablet 2024 025 [facility], [address] [place] [address], [id number], 02/14/2025 11:02:09 lamotrigi ne 200 mg tablet 2023 024 [facility], [address] [place] [address], [id number], 07/20/2024 12:52:04 lamotrigi ne 200 mg tablet 2023 024 [facility], [address] [place] [address], [id number], 01/18/2024 12:29:27 lamotrigi ne 200 mg tablet 2022 023 [facility], [address] [place] [address], [id number], 07/19/2023 14:26:12 Patient TargetsNo targets recorded. Patient Instructions Encounter Date Encounter Id Patient Instructions Last Modified By Organization Details Last Modified Time 07/19/2023 [id number] [email or web address] Not available 07/19/2023 14:13:03 PREVIOUS MEDICATION [...] of proarrhythmia. [email or web address] rg/files/[email or web address] line/ILAE_[email or web address] trigine_advisory_f inal_EO_[email or web address] --[email or web address].pdf He has no known heart disease, and [...] minutes [email or web address] Not available 07/19/2023 14:46:05 01/18/2024 [id number] mrossen Not available 01/18/2024 12:23:05 PREVIOUS MEDICATION [...] of proarrhythmia. [email or web address] rg/files/ilaeGuide line/ILAE_AES_Lamo trigine_advisory_f inal_EO_CLEAN_[email or web address] -[email or web address] He has no known heart disease, and [...] minutes mrossen Not available 01/18/2024 12:41:53 07/20/2024 [id number] mrossen Not available 07/20/2024 12:48:10 PREVIOUS MEDICATION [...] of proarrhythmia. [email or web address].o rg/files/ilaeGuide line/ILAE_AES_Lamo trigine_advisory_f inal_EO_CLEAN_[email or web address] -[email or web address].pdf He has no known heart disease, and [...] 30 minutes mrossen Not available 07/20/2024 12:48:10 02/14/2025 [id number] ossen Not available 02/14/2025 10:57:01 PREVIOUS MEDICATION He remains, since May 2015, [...] of proarrhythmia. [email or web address].o rg/files/ilaeGuide line/ILAE_AES_Lamo trigine_advisory_f inal_EO_CLEAN_[email or web address] -[email or web address].pdf He has no known heart disease, and [...] greater than 30 minutes mrossen Not available 02/14/2025 10:57:01 07/26/2025 [id number] mrossen Not available 07/26/2025 10:23:08 PREVIOUS MEDICATION [...] of proarrhythmia. [email or web address].o rg/files/ilaeGuide line/ILAE_AES_Lamo trigine_advisory_f inal_EO_CLEAN_[email or web address] -[email or web address].pdf He has no known heart disease, and [...] Details Recorded Time 07/26/2025 DATA REVIEW completed Benedicot Branch MD [address] [place], [place] [address], [phone], [facility] 07/26/2025 10:23:08 02/14/2025 DATA REVIEW completed Benedicto Branch MD [address] [place], [place] [address], [phone], [facility] 02/14/2025 10:57:01 07/20/2024 DATA REVIEW completed Benedicto Branch MD [address] [place] [address] [place], [phone], [facility] 07/20/2024 12:48:09 01/18/2024 DATA REVIEW completed Benedicto Branch MD [address] [place] [address] [place], [phone], [facility] 01/18/2024 12:23:04 07/19/2023 DATA REVIEW completed Benedicto Branch MD [address] [place], [place] [address], [phone], [facility] 07/19/2023 14:13:03 01/04/2023 DATA REVIEW completed Benedicto Branch MD [address] [place] [address] [place], [phone], [facility]ly [facility] 01/04/2023 14:44:56 02/10/2022 DATA REVIEW completed Benedicto Branch MD [address] [place] [address] [place], [phone], [facility] 02/10/2022 14:28:50 Imaging Results None recorded. Procedure [...] ICD10 Code Diagnosis IMO Codes Diagnosis Note [id number] Benedicto Branch MD [facility] [address] [place] [address] [place] [address] 02/10/2022 13:48:28 02/11/2022 08:42:06 Focal onset impaired awareness epileptic seizure [id number] G40.209 Unsteady w hen standing [id number] R26.81 [id number] Benedicto Branch MD [facility] [address] [place] [address] [place] [address] 01/04/2023 13:50:22 01/04/2023 16:57:23 Focal onset impaired awareness epileptic seizure [id number] G40.209 Unsteady w hen standing 767718724 R26.81 [id number] Benedicto Branch MD [address] [place] [address] 07/19/2023 13:54:44 07/19/2023 17:09:08 Focal onset impaired awareness epileptic seizure 455339266 G40.209 Unsteady w hen standing [id number] R26.81 [id number] Benedicto Branch MD [facility] [address] [place] [address] [place] [address] 01/18/2024 11:48:19 01/18/2024 12:52:50 Focal onset impaired awareness epileptic seizure 441950995 G40.209 Unsteady w hen standing [id number] R26.81 [id number] Benedicto Branch MD [facility] [address] [place] [address] [place] [address] 07/20/2024 12:25:19 07/20/2024 16:21:10 Focal onset impaired awareness epileptic seizure 392542092 G40.209 Unsteady w hen standing [id number] R26.81 [id number] Benedicto Branch MD [address] [place] [address] 02/14/2025 10:11:59 02/14/2025 11:23:41 Focal onset impaired awareness epileptic seizure 338300505 G40.209 Unsteady w hen standing 433444493 R26.81 [id number] Benedicto Branch MD [facility] [address] [place] [address] [place] [address] 07/26/2025 10:18:28 07/31/2025 10:58:01 Focal onset impaired awareness epileptic seizure 502301565 G40.209 Unsteady w hen standing [id number] R26.81 Health Concerns Section Related Observation LastModified by Organization Detai ls LastModified Time None Recorded Concern Status LastModified by Organization Details LastModified Time None Recorded Advance Directives Directive None Recorded Payers Insurance Date Sequence Insurance Name Policy Number Policy Garcia Covered Member ID Garcia Member ID Guarantor Name 07/31/2025 1 [facility] [employer] [facility] (O) [id number] Earle Rodrigues [id number] Earle Rodrigues Notes Date Note Type Note Provider Name and Address Organization Details Recorded Time 3 text/html Follow up of epilepsy. He is unaccompanied. >>>>>>>>>>>July 192022Since January 04, 2023 neurology follow-up [...] continued monitoring for diabetes. Benedicto Branch MD [address] [place] [address] [place], [phone], [facility] 07/19/2023 14:46:16 4 text/html Follow up of [...] continued monitoring for diabetes. Benedicto Branch MD [address] [place] [address] [place], [phone], [facility] 01/18/2024 12:42:07 4 text/html Follow up of epilepsy. Antonio breen is initially unaccompanied. Toward the end of [...] continued monitoring for diabetes. Benedicto Branch MD [address] [place] [address], [phone], [facility] 07/20/2024 13:11:57 5 text/html Follow up of epilepsy. Antoino breen is initially unaccompanied. Toward the end of the encounter, I also talk with his , who did not comment as she asked him if she should and he said he was unsure. Both agreed that she will come in from the beginning for future appointments. >>>>>>>>>>>>February 14, 2025Since July 20, 2024 Neurology [...] continued monitoring for diabetes. Benedicto Branch MD [address] [place] [address] [place], [phone], [facility] 02/14/2025 11:10:46 5 text/html Follow up of epilepsy. H e is accompanied by his , Pennie Rodrigues. [...] continued monitoring for diabetes. Benedicto Branch MD [address] [place] [address] [place], [phone], [facility] 07/26/2025 10:54:18
--- OUTSIDE RECORDS SUMMARY | 2025-10-03 13:25 | XMS_ITS | Encounter Summary ---
Author Organization [facility] Address [address] [place] [address] Care Team Providers Care Manufacturing Leader Name Role Phone Sharmila Hanson MD Primary Care Provider [phone] Encounter Details Date Type Department Care Team (Late st Contact Info) Description 10/06/2024 Lab Requisition [facility] - Main Lab [address] [facility] [place] [address] Roxana Murray MD [address] [id number] Diabetes mellitus due to underlying condition with [...] Comprehensive metabolic panel (10/09/2024 7:14 AM EST) [facility] Sodium 130(L) 133 - 145 mmol/L LAB CHEMISTRY METHOD 10/09/2024 12:32 PM [facility] Potassium 4.3 3.5 - 5.5 mmol/L LAB CHEMISTRY METHOD 10/09/2024 12:32 PM [facility] Chloride 98 96 - 110 mmol/L LAB CHEMISTRY METHOD 10/09/2024 12:32 PM [facility] CO2 28 21 - 32 mmol/L LAB CHEMISTRY METHOD 10/09/2024 12:32 PM [facility] Anion Gap 4 3 - 11 LAB CHEMISTRY METHOD 10/09/2024 12:32 PM [facility] Glucose 101(H) 70 - 100 mg/dL LAB CHEMISTRY METHOD 10/09/2024 12:32 PM [facility] BUN 12 5 - 25 mg/dL LAB CHEMISTRY METHOD 10/09/2024 12:32 PM [facility] Creatinine 0.99 0.70 - 1.30 mg/dL LAB CHEMISTRY METHOD 10/09/2024 12:32 PM [facility] eGFR 74 >=60 mL/min/1. 73m2 LAB CHEMISTRY METHOD 10/09/2024 12:32 PM [facility] Comment:Calculation based on the Chronic Kidney Disease Epidemiology Collaboration (CKD-EPI) equation refit without adjustment for race. BUN/Creatinine Ratio 12.1 LAB CHEMISTRY METHOD 10/09/2024 12:32 PM [facility] Calcium 10.2 8.5 - 10.5 mg/dL LAB CHEMISTRY METHOD 10/09/2024 12:32 PM [facility] AST (SGOT) 19 10 - 42 unit/L LAB CHEMISTRY METHOD 10/09/2024 12:32 PM [facility] ALT (SGPT) 23 10 - 60 unit/L LAB CHEMISTRY METHOD 10/09/2024 12:32 PM [facility] Alkaline Phosphatase 272(H) 42 - 121 unit/L LAB CHEMISTRY METHOD 10/09/2024 12:32 PM [facility] Total Protein 6.9 6.0 - 8.0 g/dL LAB CHEMISTRY METHOD 10/09/2024 12:32 PM EST [facility] Albumin 3.3 3.2 - 5.0 g/dL LAB CHEMISTRY METHOD 10/09/2024 12:32 PM [facility] Total Bilirubin 0.8 0.0 - 1.4 mg/dL LAB CHEMISTRY METHOD 10/09/2024 12:32 PM EST [facility] Blood Venous blood specimen / Unknown Venipuncture / Unknown 10/09/2024 7:14 AM EST 10/09/2024 11:04 AM EST us Roxana Murray MD LAB BLOOD ORDERABLES Fin al Result [facility] [address] [place] [address], * (ABNORMAL) Complete blood count (10/09/2024 7:14 AM EST) WBC 10.2 4.8 - 10.8 K/mcL LAB HEMETOLOGY METHOD 10/09/2024 11:46 AM [facility] RBC 3.90(L) 4.50 - 5.50 M/mcL LAB HEMETOLOGY METHOD 10/09/2024 11:46 AM [facility] Hemoglobin 11.7(L) 13.5 - 17.5 g/dL LAB HEMETOLOGY METHOD 10/09/2024 11:46 AM [facility] Hematocrit 37.4(L) 42.0 - 54.0 % LAB HEMETOLOGY METHOD 10/09/2024 11:46 AM [facility] MCV 95.2 79.0 - 98.0 FL LAB HEMETOLOGY METHOD 10/09/2024 11:46 AM [facility] MCH 29.8 27.0 - 32.0 pcg LAB HEMETOLOGY METHOD 10/09/2024 11:46 AM EST [facility] MCHC 31.3(L) 32.0 - 37.0 g/dL LAB HEMETOLOGY METHOD 10/09/2024 11:46 AM [facility] RDW 14.8 11.0 - 15.0 % LAB HEMETOLOGY METHOD 10/09/2024 11:46 AM [facility] Platelets 335 130 - 400 K/mcL LAB HEMETOLOGY METHOD 10/09/2024 11:46 AM EST [facility] MPV 8.4 7.0 - 11.0 FL LAB HEMETOLOGY METHOD 10/09/2024 11:46 AM [facility] NRBC 0.0 <1.0 % LAB HEMETOLOGY METHOD 10/09/2024 11:46 AM [facility] NRBC Absolute 0.00 <0.10 K/mcL LAB HEMETOLOGY METHOD 10/09/2024 11:46 AM [facility] Blood Venous blood specimen / Unknown Venipuncture / Unknown 10/09/2024 7:14 AM EST 10/09/2024 11:04 AM EST us Roxana Murray MD LAB BLOOD ORDERABLES Fin al Result [facility] [address] [place] [address], documented in this encounter Visit Diagnoses Diagnosis Diabetes mellitus due to underlying condition with diabetic chronic kidney disease (CMS/HCC V24, CMS/HCC V28) Essential (primary) hypertension Unspecified essential hypertension Urinary tract infection, site not specified documented in this encounter Additional Health Concerns 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
--- OUTSIDE RECORDS SUMMARY | 2025-10-03 13:25 | XMS_ITS | Encounter Summary ---
Author Organization [facility] Address [address] [place] [address] Care Team Providers Care Vp Design Name Role Phone Sharmila Hanson MD Primary Care Provider [phone] Encounter Details Date Type Department Care Team (Late st Contact Info) Description 05/25/2025 Billing Patient Not Present Adult Medicine [facility] [address] [place] [address] Sharmila Hanson MD [address] [place], [place] Social History Tobacco Use Types Packs/Day [...] documented as of this encounter Care Teams Vp Design Relationship Specialty Start Date End Date Sharmila Hanson MD [address] [place] [address] PCP - General 10/12/1992 documented as of this encounter
--- OUTSIDE RECORDS SUMMARY | 2025-10-03 13:25 | XMS_ITS | Encounter Summary ---
Author Organization [facility] Address [address] [place] [address] Care Team Providers Care Almond Sorter Name Role Phone Sharmila Hanson MD Primary Care Provider Reason for Visit * Reason Onset Date Comments VNA 10/02/2025 Encounter Details Date Type Department Care Team (Late st Contact Info) Description 10/02/2025 Nurse Triage Adult Medicine [facility] [address] [place] [address] Sharmila Hanson MD [address] [place], [place] Social History Tobacco Use Types Packs/Day [...] of Assessment Author No 11/24/2024 3:15 PM EST Jeffry, As yeison Salmon RN * Are you blind or do you have serious difficulty seeing, even when wearing glasses? Answer Date of Assessment Author No 11/24/2024 3:15 PM EST Jeffry, As yeison Salmon RN * Do you have serious difficulty walking or climbing stairs? Answer Date of Assessment Author Yes 11/24/2024 3:15 PM EST Jeffry, As yeison Salmon RN * Do you have serious difficulty dressing or bathing? Answer Date of Assessment Author No 11/24/2024 3:15 PM EST Jeffry, As yeison Salmon RN * Because of a physical, mental, or emotional condition, do you have serious difficulty doing errandsalone such as visiting the doctor? Answer Date of Assessment Author Yes 11/24/2024 3:15 PM EST Jeffry, As yeison Salmon RN documented as of this encounter Mental Status * Because of a physical, mental, or emotional condition, do you have serious difficulty concentrating, remembering, or making decisions? (5 years old or older) Answer Entry Date Author No 11/24/2024 3:15 PM EST Jeffry, As yeison Salmon RN documented in this encounter Progress Notes * Heather Lara RN - 10/02/2025 2:19 PM EST Called and spoke to Javier. She states the pt has crackles to his bases upon auscultation of his lung braswell, L>R. No swelling to his lower extremities. She denies any weight gain. She states pt has had an intermittent productive cough with clear sputum. The cough started 1-2 weeks ago. No fever. She denies shortness of breath. No chest pain. His VS today were noted to be 128/70, 68 and 94% on RA. He was advised to go to an [facility] for further evaluation and treatment. He is in agreement with this plan. Reason for Disposition [1] MILD difficulty breathing (e.g., minimal/no SOB at rest, SOB with walking, pulse < 100) AND [2] still present when not coughing Answer Assessment - Initial Assessment Questions 1. ONSET: When did the cough begin? 1-2 weeks ago 2. SEVERITY: How bad is the cough today? He rates the cough as 4/10 3. SPUTUM: Describe the color of your sputum (e.g., none, dry cough; clear, white, yellow, green) White 4. HEMOPTYSIS: Are you coughing up any blood? If Yes, ask: How much? (e.g., flecks, streaks, tablespoons, etc.) No hemoptysis 5. DIFFICULTY BREATHING: Are you having difficulty breathing? If Yes, ask: How bad is it? (e.g., mild, moderate, severe) He reports shortness of breath with activity 6. FEVER: Do you have a fever? If Yes, ask: What is your temperature, how was it measured, and when did it start? No fever 7. CARDIAC HISTORY: Do you have any history of heart disease? (e.g., heart attack, congestive heart failure) A-fib, CHF 8. LUNG HISTORY: Do you have any history of lung disease? (e.g., pulmonary embolus, asthma, emphysema) Pulmonary HTN, SARMAD 9. PE RISK FACTORS: Do you have a history of blood clots? (or: recent major surgery, recent prolonged travel, bedridden) No PE risk factors 10. OTHER SYMPTOMS: Do you have any other symptoms? (e.g., runny nose, wheezing, chest pain) No 11. : Is there any chance you are ? When was your last menstrual period? No. Pt is a male. 12. TRAVEL: Have you traveled out of the country in the last month? (e.g., travel history, exposures) No air travel. Pt has not taken a home Covid test. Protocols used: Cough - Acute [id number] * Javier Willis - 10/02/2025 11:43 AM EST [facility] CALL Which [facility] office is calling? [facility] / Full name of caller: JAVIER The caller is A nurse Is the caller at the patients home?: yes Reason for call: CRACKLES IN LEFT AND RIGHT LOWER LOBES MORE SO THE LEFT LOBE, REQUESTING CHEST XRAY. ALL OTHER VITALS ARE GOOD Does caller need an urgent call back? 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
--- OUTSIDE RECORDS SUMMARY | 2025-10-03 13:25 | XMS_ITS | Encounter Summary ---
Author Organization [facility] Address [address] [place] [address] Care Team Providers Care Hand Fretted Instrument Maker Name Role Phone Sharimla Hanson MD Primary Care Provider [phone] Encounter Details Date Type Department Care Team (Late st Contact Info) Description 09/25/2025 Billing Patient Not Present Adult Medicine [facility] [address] [place] [address] Sharmila Hanson MD [address] [place], [place] Social History Tobacco Use Types Packs/Day [...] documented as of this encounter Care Teams Hand Fretted Instrument Maker Relationship Specialty Start Date End Date Sharmila Hanson MD [address] [place] [address] PCP - General 10/12/1992 documented as of this encounter
== END 2025-10-03 12:56 | disposition home or self-care (01) ==
PROVIDERS: PCP Internal Medicine; Visit Provider Physician Assistant
DX: R09.89 Other specified symptoms and signs involving the circulatory and respiratory systems (principal)

== ENCOUNTER 2025-10-03 11:41 | Outpatient (REF) | payer OTHER, SELFPAY ==
--- NOTE | ~2025-10-03 | XR_ITS ---
EXAMINATION: XR CHEST 2 VIEWS HISTORY: R09.89 - Other specified symptoms and signs involving the circulatory... COMPARISON: There are no prior studies available for comparison. FINDINGS: PA and lateral views of the chest are submitted. There are low lung volumes. There is bilateral pleural thickening and parenchymal scarring throughout both lungs. There are no focal airspace opacities. There is no pleural effusion, pneumothorax, or pulmonary vascular congestion. The heart is normal in size. There is degenerative disc disease of the spine. XR/XR chest 2V IMPRESSION: Bilateral pleural thickening and parenchymal scarring. Electronically signed by: Bernardino Kim MD 10/03/2025 01:29 PM [facility]
== END 2025-10-03 11:42 | disposition home or self-care (01) ==
LOC: HO.HMGCX 11:41
PROVIDERS: PCP Internal Medicine; Visit Provider Physician Assistant
DX: R09.89 Other specified symptoms and signs involving the circulatory and respiratory systems (principal)
CPT/HCPCS: 71046; 99212

== ENCOUNTER → 2025-10-03 13:12 | Outpatient (BNV) | payer OTHER, SELFPAY | PROVIDERS: PCP Internal Medicine; Visit Provider Radiology Diagnostic Radiology | DX: R09.89 Other specified symptoms and signs involving the circulatory and respiratory systems (principal); J92.9 Pleural plaque without asbestos | CPT/HCPCS: 71046 ==